=== PATIENT | female | born 1930 | race Two or more races ===

== ENCOUNTER → 2016-06-03 | Outpatient (CLI) | payer MEDICARE, MEDICAID ==
[2016-06-03 10:06] LABS: APPEARANCE,URINE SLIGHTLY-CLOUDY; BILIRUBIN,URINE NEGATIVE (NEGATIVE); GLUCOSE, URINE NEGATIVE (NEGATIVE); KETONES,URINE TRACE mg/dL (NEGATIVE); LEUKOCYTE ESTERASE,URINE TRACE (NEGATIVE); NITRITE,URINE NEGATIVE (NEGATIVE); PROTEIN,URINE NEGATIVE (NEGATIVE); URINE SPECIFIC GRAVITY 1.023
[2016-06-03 10:07] LABS: HEMATOCRIT 39.5 % (36.0-47.0); HEMOGLOBIN 13.3 g/dL (12.0-15.5); HGB HCT DIFFERENCE 0.4; MEAN CORPUSCULAR VOLUME 91 fl (80-97); RED BLOOD COUNT 4.32 10^6/uL (3.72-5.28)
[2016-06-03 10:08] LABS: MEAN CORPUSCULAR HEMOGLOBIN 30.7 pg (27.0-33.4); MEAN CORPUSCULAR HGB CONC 33.6 g/dL (32.0-36.0); RED CELL DISTRIBUTION WIDTH 13.5 % (11.5-14.0)
[2016-06-03 10:29] LABS: ANION GAP 9 (5-19); BLOOD UREA NITROGEN 39 mg/dL (7-20); CALCIUM 10.1 mg/dL (8.4-10.2); CARBON DIOXIDE 31 mmol/L (22-30); CHLORIDE 101 mmol/L (98-107); GLUCOSE 97 mg/dL (75-110); POTASSIUM 4.7 mmol/L (3.6-5.0); SODIUM 140.6 mmol/L (137-145)
== END ==
LOC: OD 09:15
PROVIDERS: ATTEND Internal Medicine Nephrology
DX: I12.9 Hypertensive chronic kidney disease with stage 1 through stage 4 chronic kidney disease, or unspecified chronic kidney disease (principal); N18.3 Chronic kidney disease, stage 3 (moderate); E87.5 Hyperkalemia
CPT/HCPCS: 36415; 80048; 81001; 85027

== ENCOUNTER → 2016-11-11 | Outpatient (CLI) | payer MEDICARE, MEDICAID ==
[2016-11-11 10:08] LABS: ABSOLUTE EOSINOPHILS # (AUTO) 0.1 10^3/uL (0.0-0.6); ABSOLUTE LYMPHOCYTES (AUTO) 2.2 10^3/uL (0.5-4.7); ABSOLUTE MONOCYTES (AUTO) 0.6 10^3/uL (0.1-1.4); ABSOLUTE NEUT (AUTO) 4.2 10^3/uL (1.7-8.2); BASOPHILS % (AUTO) 0.3 % (0-2); EOSINOPHILS % (AUTO) 1.5 % (0-6); HEMATOCRIT 39.2 % (36.0-47.0); HEMOGLOBIN 13.4 g/dL (12.0-15.5); LYMPHOCYTES % (AUTO) 30.9 % (13-45); MEAN CORPUSCULAR HEMOGLOBIN 31.4 pg (27.0-33.4); MEAN CORPUSCULAR HGB CONC 34.3 g/dL (32.0-36.0); MEAN CORPUSCULAR VOLUME 92 fl (80-97); MONOCYTES % (AUTO) 8.4 % (3-13); RED BLOOD COUNT 4.27 10^6/uL (3.72-5.28); RED CELL DISTRIBUTION WIDTH 13.5 % (11.5-14.0); SEGMENTED NEUTROPHILS % (AUTO) 58.9 % (42-78); WHITE BLOOD COUNT 7.2 10^3/uL (4.0-10.5)
[2016-11-11 10:11] LABS: HEMATOCRIT 39.2 % (36.0-47.0); HEMOGLOBIN 13.4 g/dL (12.0-15.5); MEAN CORPUSCULAR HEMOGLOBIN 31.4 pg (27.0-33.4); MEAN CORPUSCULAR HGB CONC 34.3 g/dL (32.0-36.0); MEAN CORPUSCULAR VOLUME 92 fl (80-97); RED BLOOD COUNT 4.27 10^6/uL (3.72-5.28); RED CELL DISTRIBUTION WIDTH 13.5 % (11.5-14.0); WHITE BLOOD COUNT 7.2 10^3/uL (4.0-10.5)
[2016-11-11 10:14] LABS: APPEARANCE,URINE SLIGHTLY-CLOUDY; BILIRUBIN,URINE NEGATIVE (NEGATIVE); GLUCOSE, URINE NEGATIVE (NEGATIVE); KETONES,URINE NEGATIVE (NEGATIVE); LEUKOCYTE ESTERASE,URINE SMALL (NEGATIVE); NITRITE,URINE NEGATIVE (NEGATIVE); PROTEIN,URINE NEGATIVE (NEGATIVE); URINE SPECIFIC GRAVITY 1.021; UROBILINOGEN,URINE NEGATIVE mg/dL (<2.0)
[2016-11-11 10:41] LABS: ALANINE AMINOTRANSFERASE 29 U/L (9-52); ALBUMIN 4.2 g/dL (3.5-5.0); ALKALINE PHOSPHATASE 54 U/L (38-126); ANION GAP 10 (5-19); ASPARTATE AMINO TRANSFERASE 28 U/L (14-36); BILIRUBIN,DIRECT 0.4 mg/dL (0.0-0.4); BILIRUBIN,TOTAL 0.4 mg/dL (0.2-1.3); BLOOD UREA NITROGEN 28 mg/dL (7-20); CALCIUM 10.3 mg/dL (8.4-10.2); CARBON DIOXIDE 28 mmol/L (22-30); CHLORIDE 103 mmol/L (98-107); CHOLESTEROL 207.25 mg/dL (0-200); CREATININE RESULT 1.08 mg/dL (0.52-1.25); Direct HDL 56 mg/dL (>40); GLUCOSE 108 mg/dL (75-110); POTASSIUM 5.3 mmol/L (3.6-5.0); SODIUM 140.9 mmol/L (137-145); TOTAL PROTEIN 7.2 g/dL (6.3-8.2); TRIGLYCERIDES 284 mg/dL (<150)
[2016-11-11 10:52] LABS: DIRECT LDL 94 mg/dL (<100)
[2016-11-11 10:54] LABS: VLDL CHOLESTEROL 56.8 mg/dL (10-31)
[2016-11-11 10:55] LABS: BLOOD UREA NITROGEN 28 mg/dL (7-20); CALCIUM 10.3 mg/dL (8.4-10.2); CHLORIDE 103 mmol/L (98-107); CREATININE RESULT 1.08 mg/dL (0.52-1.25); GLUCOSE 108 mg/dL (75-110); POTASSIUM 5.3 mmol/L (3.6-5.0)
[2016-11-11 10:56] LABS: ANION GAP 10 (5-19); CARBON DIOXIDE 28 mmol/L (22-30); SODIUM 140.9 mmol/L (137-145)
== END ==
LOC: OD 09:10
PROVIDERS: ATTEND Internal Medicine
DX: I12.9 Hypertensive chronic kidney disease with stage 1 through stage 4 chronic kidney disease, or unspecified chronic kidney disease (principal); N18.3 Chronic kidney disease, stage 3 (moderate); E87.5 Hyperkalemia; E78.5 Hyperlipidemia, unspecified; R53.83 Other fatigue
CPT/HCPCS: 36415; 80048; 80053; 80061; 81001; 84443; 85025; 85027

== ENCOUNTER → 2017-01-06 | Outpatient (CLI) | payer MEDICARE, MEDICAID ==
--- NOTE | 2017-01-06 15:50 | RADIOLOGY REPORT (SQ) ---
EXAM DESCRIPTION: U/S RETROPERITON (RENAL/AORTA) COMPLETED DATE/TIME: 01/06/2017 2:29 pm REASON FOR STUDY: MAL FABIO OF KIDNEY C64.1 MALIGNANT NEOPLASM OF RIGHT KIDNEY, EXCEPT RENAL PELVI COMPARISON: 2013, 2015. MRI. TECHNIQUE: Dynamic and static grayscale images acquired of the kidneys and bladder and recorded on P ACS. Additional selected color Doppler and spectral images recorded. LIMITATIONS: None. FINDINGS: RIGHT KIDNEY: 9.8 cm. Normal echogenicity. Solid mass measuring 3.3 x 4.1 x 4.3 cm. Blood flow. Essentially stable since 2013. No hydronephrosis. No calcifications. LEFT KIDNEY: 10.3 cm. Normal echogenicity. No solid or suspicious masses. No hydronephrosis. No calcifications. BLADDER: No masses. OTHER FINDINGS: No other significant finding. IMPRESSION: Stable solid renal mass right kidney since 2013. TECHNICAL DOCUMENTATION: JOB ID: [id number] [employer]- All Rights Reserved
== END ==
LOC: RAD 13:39
PROVIDERS: ATTEND Urology
DX: C64.1 Malignant neoplasm of right kidney, except renal pelvis (principal)
CPT/HCPCS: 76770

== ENCOUNTER → 2017-05-29 | Outpatient (CLI) | payer MEDICARE, MEDICAID ==
--- NOTE | 2017-05-29 19:10 | XCELERA REPORT ---
[address] [address] Lower Extremity Venous Evaluation Name: TANIYA JEAN BAPTISTE Age: 86 yrs Gender: Female : 1930 Patient Status: Outpatient Patient Location: Study Date: 05/29/2017 11:20 AM Procedure: Color flow and duplex imaging of the veins of the left lower extremity as well as the right Common Femoral vein. Reason For Study: LLE PAIN Ordering Physician: KARTIK BECKER Performed By: Vika Ramirez Right Sided Venous Evaluation The right common femoral vein is fully compressible. Spontaneous and phasic flow is present in the right common femoral vein. Left Sided Venous Evaluation Normal vessel filling wall to wall, compression and augmentation as well as Colour flow down to the infrageniculate veins. Interpretation Summary No duplex evidence of DVT or obstruction in the left lower extremity nor in the right Common Femoral vein. : KARTIK BECKER [place]
== END ==
LOC: SP 11:14
PROVIDERS: ATTEND Internal Medicine
DX: I82.402 Acute embolism and thrombosis of unspecified deep veins of left lower extremity (principal); M79.89 Other specified soft tissue disorders
CPT/HCPCS: 93971

== ENCOUNTER → 2017-06-16 | Outpatient (CLI) | payer MEDICARE, MEDICAID ==
[2017-06-16 09:01] LABS: ABSOLUTE EOSINOPHILS # (AUTO) 0.1 10^3/uL (0.0-0.6); ABSOLUTE LYMPHOCYTES (AUTO) 2.9 10^3/uL (0.5-4.7); ABSOLUTE MONOCYTES (AUTO) 0.6 10^3/uL (0.1-1.4); ABSOLUTE NEUT (AUTO) 5.2 10^3/uL (1.7-8.2); BASOPHILS % (AUTO) 0.4 % (0-2); EOSINOPHILS % (AUTO) 1.4 % (0-6); HEMATOCRIT 42.4 % (36.0-47.0); HEMOGLOBIN 14.3 g/dL (12.0-15.5); MEAN CORPUSCULAR HEMOGLOBIN 29.8 pg (27.0-33.4); MEAN CORPUSCULAR HGB CONC 33.7 g/dL (32.0-36.0); MEAN CORPUSCULAR VOLUME 89 fl (80-97); MONOCYTES % (AUTO) 6.5 % (3-13); PLATELET COUNT 327 10^3/uL (150-450); RED BLOOD COUNT 4.79 10^6/uL (3.72-5.28); RED CELL DISTRIBUTION WIDTH 13.4 % (11.5-14.0); SEGMENTED NEUTROPHILS % (AUTO) 58.7 % (42-78); TOTAL CELLS COUNTED % (AUTO) 100 %; WHITE BLOOD COUNT 8.9 10^3/uL (4.0-10.5)
[2017-06-16 09:07] LABS: HEMATOCRIT 42.4 % (36.0-47.0); HEMOGLOBIN 14.3 g/dL (12.0-15.5); MEAN CORPUSCULAR HEMOGLOBIN 29.8 pg (27.0-33.4); MEAN CORPUSCULAR HGB CONC 33.7 g/dL (32.0-36.0); MEAN CORPUSCULAR VOLUME 89 fl (80-97); PLATELET COUNT 327 10^3/uL (150-450); RED BLOOD COUNT 4.79 10^6/uL (3.72-5.28); RED CELL DISTRIBUTION WIDTH 13.4 % (11.5-14.0); WHITE BLOOD COUNT 8.9 10^3/uL (4.0-10.5)
[2017-06-16 09:18] LABS: ALANINE AMINOTRANSFERASE 24 U/L (9-52); ALBUMIN 4.3 g/dL (3.5-5.0); ALKALINE PHOSPHATASE 46 U/L (38-126); ANION GAP 8 (5-19); ASPARTATE AMINO TRANSFERASE 24 U/L (14-36); BILIRUBIN,DIRECT 0.4 mg/dL (0.0-0.4); BILIRUBIN,TOTAL 0.4 mg/dL (0.2-1.3); BLOOD UREA NITROGEN 37 mg/dL (7-20); CALCIUM 10.3 mg/dL (8.4-10.2); CARBON DIOXIDE 29 mmol/L (22-30); CHLORIDE 105 mmol/L (98-107); CHOLESTEROL 159.93 mg/dL (0-200); GLUCOSE 96 mg/dL (75-110); POTASSIUM 4.5 mmol/L (3.6-5.0); SODIUM 142.1 mmol/L (137-145); TOTAL PROTEIN 7.1 g/dL (6.3-8.2); TRIGLYCERIDES 167 mg/dL (<150)
[2017-06-16 09:31] LABS: DIRECT LDL 71 mg/dL (<100)
[2017-06-16 09:35] LABS: VLDL CHOLESTEROL 33.4 mg/dL (10-31)
[2017-06-16 09:44] LABS: ANION GAP 8 (5-19); BLOOD UREA NITROGEN 37 mg/dL (7-20); CALCIUM 10.3 mg/dL (8.4-10.2); CARBON DIOXIDE 29 mmol/L (22-30); CHLORIDE 105 mmol/L (98-107); GLUCOSE 96 mg/dL (75-110); POTASSIUM 4.5 mmol/L (3.6-5.0); SODIUM 142.1 mmol/L (137-145)
== END ==
LOC: OD 08:19
PROVIDERS: ATTEND Internal Medicine
DX: I12.9 Hypertensive chronic kidney disease with stage 1 through stage 4 chronic kidney disease, or unspecified chronic kidney disease (principal); N18.3 Chronic kidney disease, stage 3 (moderate); E78.5 Hyperlipidemia, unspecified; R53.83 Other fatigue
CPT/HCPCS: 36415; 80048; 80053; 80061; 83735; 84443; 85025; 85027

== ENCOUNTER → 2017-10-01 | Outpatient (CLI) | payer MEDICARE, MEDICAID ==
[2017-10-01 10:46] LABS: APPEARANCE,URINE CLEAR; BILIRUBIN,URINE NEGATIVE (NEGATIVE); COLOR,URINE YELLOW; GLUCOSE, URINE NEGATIVE (NEGATIVE); KETONES,URINE NEGATIVE (NEGATIVE); LEUKOCYTE ESTERASE,URINE NEGATIVE (NEGATIVE); NITRITE,URINE NEGATIVE (NEGATIVE); PROTEIN,URINE NEGATIVE (NEGATIVE); UROBILINOGEN,URINE NEGATIVE mg/dL (<2.0)
[2017-10-01 11:06] LABS: ANION GAP 9 (5-19); BLOOD UREA NITROGEN 34 mg/dL (7-20); CALCIUM 10.5 mg/dL (8.4-10.2); CARBON DIOXIDE 30 mmol/L (22-30); CHLORIDE 105 mmol/L (98-107); GLUCOSE 92 mg/dL (75-110); POTASSIUM 5.1 mmol/L (3.6-5.0); SODIUM 143.9 mmol/L (137-145)
[2017-10-01 12:03] LABS: HEMATOCRIT 39.3 % (36.0-47.0); HEMOGLOBIN 13.2 g/dL (12.0-15.5); MEAN CORPUSCULAR HEMOGLOBIN 30.3 pg (27.0-33.4); MEAN CORPUSCULAR HGB CONC 33.5 g/dL (32.0-36.0); MEAN CORPUSCULAR VOLUME 91 fl (80-97); PLATELET COUNT 331 10^3/uL (150-450); RED BLOOD COUNT 4.34 10^6/uL (3.72-5.28); RED CELL DISTRIBUTION WIDTH 13.7 % (11.5-14.0); WHITE BLOOD COUNT 7.1 10^3/uL (4.0-10.5)
== END ==
LOC: OD 09:38
PROVIDERS: ATTEND Physician Assistant Medical
DX: N18.3 Chronic kidney disease, stage 3 (moderate) (principal); I12.9 Hypertensive chronic kidney disease with stage 1 through stage 4 chronic kidney disease, or unspecified chronic kidney disease; E87.5 Hyperkalemia
CPT/HCPCS: 36415; 80048; 81001; 85027

== ENCOUNTER 2018-02-12 13:37 | Inpatient (IN) | payer MEDICARE, MEDICAID ==
--- NOTE | 2018-02-12 13:59 | ER Document Report ---
ED General - General Chief Complaint: Weakness Stated Complaint: DIFFICULTY BREATHING Time Seen by Provider: 02/12/18 13:58 Notes: Patient is a 87-year-old female that presents to the emergency department for chief complaint of weakness after fall. Patient states that last night she had fallen, and was unable to get herself up off the floor until her family came over this morning and found her on the floor. She did not have the strength to stand. She states that she fell forward onto her right knee and scraped it, but denies having any significant pain with any range of motion of her knee. She was unable to get up to walk and has not walked since she fell. She denies having any hip pain, denies head injury or neck injury. Denies any numbness, weakness or tingling in any extremities. Past Medical History: Hypertension, hyperlipidemia Past Surgical History: Kidney cancer and surgery Social History: Denies tobacco, alcohol or drug use Family History: Reviewed and noncontributory for presenting illness Allergies: Reviewed, see documented allergy list. REVIEW OF SYSTEMS: Unless otherwise stated in this report the patient's positive and negative responses for review of systems for constitutional, eyes, ENT, cardiovascular, respiratory, gastrointestinal, neurological, genitourinary, musculoskeletal, and integumentary systems and related systems to the presenting problem are either as stated in the HPI or were not pertinent or were negative for the symptoms and/or complaints related to the presenting medical problem. PHYSICAL EXAMINATION: Vital signs reviewed, nursing noted reviewed. GENERAL: Elderly appearing female, no acute distress HEAD: Atraumatic, normocephalic. EYES: Eyes appear normal, extraocular movements intact, sclera anicteric, conjunctiva are normal. ENT: nares patent, oropharynx clear without exudates. Moist mucous membranes. NECK: Normal range of motion, supple without lymphadenopathy, no midline tenderness LUNGS: Breath sounds clear to auscultation bilaterally and equal. No wheezes rales or rhonchi. HEART: Regular rate and rhythm without murmurs ABDOMEN: Soft, nontender, normoactive bowel sounds. No rebound, guarding, or rigidity. No masses appreciated. EXTREMITIES: There is a skin tear noted over the right knee, patient can lift both legs and flex the hip without any pain or difficulty, she is neurovascularly intact distally in all extremities. Nontender, good range of motion, no pitting or edema. NEUROLOGICAL: No focal neurological deficits. Moves all extremities spontaneously Motor and sensory grossly intact on exam. PSYCH: Normal mood, normal affect. SKIN: Warm, Dry, normal turgor, no rashes or lesions noted on exposed skin TRAVEL OUTSIDE OF THE [place] IN LAST 30 DAYS: No - Related Data Allergies/Adverse Reactions: No Known Allergies Allergy (Verified 02/12/18 14:36) Past Medical History - Social History Smoking Status: Never Smoker Family History: None - Past Medical History Cardiac Medical History: Reports: Hx Hypercholesterolemia, Hx Hypertension - 2004 meds started Denies: Hx Coronary Artery Disease, Hx Heart Attack Pulmonary Medical History: Reports: Hx Pneumonia - 2013 Denies: Hx Asthma, Hx Bronchitis, Hx COPD, Hx Tuberculosis Neurological Medical History: Denies: Hx Cerebrovascular Accident, Hx Seizures Musculoskeletal Medical History: Reports Hx Arthritis - hips Psychiatric Medical History: Denies: Hx Depression Past Surgical History: Reports: Hx Hysterectomy, Hx Orthopedic Surgery - left knee surgery. Denies: Hx Pacemaker - Immunizations Hx Diphtheria, Pertussis, Tetanus Vaccination: Yes Hx Pneumococcal Vaccination: 06/09/13 Physical Exam - Vital signs Vitals: Temp Pulse Ox 97.8 F 96 02/12/18 13:43 02/12/18 13:43 Course - Re-evaluation Re-evalutation: Patient seen and examined vital signs reviewed. Laboratory data and imaging were ordered as appropriate for the patient's presenting symptoms and complaint, with consideration of any critical or life threatening conditions that may be associated with their obtained history and exam as noted above. Patient was treated with IV fluids Results were reviewed when available and demonstrated leukocytosis, and elevated CK, the UA was positive for blood, which is most likely myoglobin, concerning for rhabdomyolysis The patient was re-evaluated and was stable, agreeable to admission Evaluation was most consistent with acute rhabdomyolysis, from the patient lying on the ground for an extended period of time, patient will need IV fluids , and monitoring Results were discussed with the patient at this point after careful consideration I feel that that patient should be admitted to the hospital. This was discussed with the patient that it is in the best interest for their care to be admitted for further evaluation and management. Patient agreed with this plan of care. A call was placed to the admitted physician, Dr. Boyd who graciously accepted the patient onto their service. *Note is created using voice recognition software and may contain spelling, syntax or grammatical errors. Laboratory 02/12/18 02/12/18 02/12/18 14:15 14:15 14:15 WBC 17.1 H RBC 4.55 Hgb 14.0 Hct 40.8 MCV 90 MCH 30.8 MCHC 34.4 RDW 13.8 Plt Count 365 Seg Neutrophils % 80.8 H Lymphocytes % 11.3 L Monocytes % 7.7 Eosinophils % 0.0 Basophils % 0.2 Absolute Neutrophils 13.8 H Absolute Lymphocytes 1.9 Absolute Monocytes 1.3 Absolute Eosinophils 0.0 Absolute Basophils 0.0 Sodium 141.5 Potassium 4.3 Chloride 103 Carbon Dioxide 26 Anion Gap 13 BUN 29 H Creatinine 1.31 H Est GFR ( Amer) 46 L Est GFR (Non-Af Amer) 38 L Glucose 138 H Calcium 10.6 H Total Bilirubin 0.3 Direct Bilirubin 0.2 Neonat Total Bilirubin Not Reportable Neonat Direct Bilirubin Not Reportable Neonat Indirect Bili Not Reportable AST 85 H ALT 23 Alkaline Phosphatase 54 Creatine Kinase 2621 H Troponin I 0.049 Total Protein 7.8 Albumin 4.4 Urine Color Urine Appearance Urine pH Ur Specific [place] Urine Protein Urine Glucose (UA) Urine Ketones Urine Blood Urine Nitrite Urine Bilirubin Urine Urobilinogen Ur Leukocyte Esterase Urine WBC (Auto) Urine RBC (Auto) U Hyaline Cast (Auto) Squamous Epi Cells Auto Urine Mucus (Auto) Urine Ascorbic Acid 02/12/18 02/12/18 15:35 16:55 WBC RBC Hgb Hct MCV MCH MCHC RDW Plt Count Seg Neutrophils % Lymphocytes % Monocytes % Eosinophils % Basophils % Absolute Neutrophils Absolute Lymphocytes Absolute Monocytes Absolute Eosinophils Absolute Basophils Sodium Potassium Chloride Carbon Dioxide Anion Gap BUN Creatinine Est GFR ( Amer) Est GFR (Non-Af Amer) Glucose Calcium Total Bilirubin Direct Bilirubin Neonat Total Bilirubin Neonat Direct Bilirubin Neonat Indirect Bili AST ALT Alkaline Phosphatase Creatine Kinase 4226 H Troponin I Total Protein Albumin Urine Color YELLOW Urine Appearance SLIGHTLY-CLOUDY Urine pH 5.0 Ur Specific [place] 1.021 Urine Protein 30 H Urine Glucose (UA) 50 H Urine Ketones TRACE H Urine Blood LARGE H Urine Nitrite NEGATIVE Urine Bilirubin NEGATIVE Urine Urobilinogen 2.0 H Ur Leukocyte Esterase TRACE H Urine WBC (Auto) 3 Urine RBC (Auto) 1 U Hyaline Cast (Auto) 47 Squamous Epi Cells Auto 3 Urine Mucus (Auto) OCC Urine Ascorbic Acid NEGATIVE Chest X-Ray 11/01/18 14:09 IMPRESSION: HEART ENLARGED WITHOUT FAILURE. NO OTHER SIGNIFICANT RADIOGRAPHIC FINDING IN THE CHEST. - Vital Signs Vital signs: Temp Pulse Resp BP Pulse Ox 97.8 F 90 22 H 167/76 H 99 02/12/18 13:43 02/12/18 17:01 02/12/18 17:01 02/12/18 17:01 02/12/18 17:01 - Laboratory Result Diagrams: 02/12/18 14:15 02/12/18 14:15 Laboratory results interpreted by me: 02/12/18 02/12/18 02/12/18 14:15 14:15 15:35 WBC 17.1 H Seg Neutrophils % 80.8 H Lymphocytes % 11.3 L Absolute Neutrophils 13.8 H BUN 29 H Creatinine 1.31 H Est GFR ( Amer) 46 L Est GFR (Non-Af Amer) 38 L Glucose 138 H Calcium 10.6 H AST 85 H Creatine Kinase 2621 H Urine Protein 30 H Urine Glucose (UA) 50 H Urine Ketones TRACE H Urine Blood LARGE H Urine Urobilinogen 2.0 H Ur Leukocyte Esterase TRACE H - EKG Interpretation by Me Additional EKG results interpreted by me: EKG demonstrates sinus rhythm with a ventricular rate of 85 bpm, normal axis, intervals, no evidence of acute ischemia in this EKG, compared with prior EKG from 09/01/2013, without significant change. Discharge - Discharge Clinical Impression: Weakness, Dehydration Rhabdomyolysis Qualifiers: Rhabdomyolysis type: traumatic Encounter type: initial encounter Qualified Code (s): T79.6XXA - Traumatic ischemia of muscle, initial encounter Condition: Stable Disposition: ADMITTED INPATIENT Admitting Provider: Hospitalist - Dr. Boyd Unit Admitted: Medical Floor
[2018-02-12] MEDS ORDERED: NORMAL SALINE 500 ML IV ONE (14:10)
[2018-02-12 14:29] LABS: ABSOLUTE LYMPHOCYTES (AUTO) 1.9 10^3/uL (0.5-4.7); ABSOLUTE MONOCYTES (AUTO) 1.3 10^3/uL (0.1-1.4); ABSOLUTE NEUT (AUTO) 13.8 10^3/uL (1.7-8.2); BASOPHILS % (AUTO) 0.2 % (0-2); HEMATOCRIT 40.8 % (36.0-47.0); LYMPHOCYTES % (AUTO) 11.3 % (13-45); MEAN CORPUSCULAR HEMOGLOBIN 30.8 pg (27.0-33.4); MEAN CORPUSCULAR HGB CONC 34.4 g/dL (32.0-36.0); MEAN CORPUSCULAR VOLUME 90 fl (80-97); MONOCYTES % (AUTO) 7.7 % (3-13); PLATELET COUNT 365 10^3/uL (150-450); RED BLOOD COUNT 4.55 10^6/uL (3.72-5.28); RED CELL DISTRIBUTION WIDTH 13.8 % (11.5-14.0); SEGMENTED NEUTROPHILS % (AUTO) 80.8 % (42-78); TOTAL CELLS COUNTED % (AUTO) 100 %; WHITE BLOOD COUNT 17.1 10^3/uL (4.0-10.5)
[2018-02-12 14:51] LABS: ALANINE AMINOTRANSFERASE 23 U/L (9-52); ALBUMIN 4.4 g/dL (3.5-5.0); ALKALINE PHOSPHATASE 54 U/L (38-126); ANION GAP 13 (5-19); ASPARTATE AMINO TRANSFERASE 85 U/L (14-36); BILIRUBIN,DIRECT 0.2 mg/dL (0.0-0.4); BILIRUBIN,TOTAL 0.3 mg/dL (0.2-1.3); BLOOD UREA NITROGEN 29 mg/dL (7-20); CALCIUM 10.6 mg/dL (8.4-10.2); CARBON DIOXIDE 26 mmol/L (22-30); CHLORIDE 103 mmol/L (98-107); GLUCOSE 138 mg/dL (75-110); POTASSIUM 4.3 mmol/L (3.6-5.0); SODIUM 141.5 mmol/L (137-145); TOTAL PROTEIN 7.8 g/dL (6.3-8.2)
[2018-02-12 15:07] LABS: CREATINE KINASE 2621 U/L (30-135)
--- NOTE | 2018-02-12 15:46 | RADIOLOGY REPORT (SQ) ---
EXAM DESCRIPTION: CHEST SINGLE VIEW COMPLETED DATE/TIME: 02/12/2018 3:12 pm REASON FOR STUDY: WEAKNESS COMPARISON: 09/10/2013 NUMBER OF VIEWS: One view. TECHNIQUE: Single frontal radiographic view of the chest acquired. LIMITATIONS: None. FINDINGS: LUNGS AND PLEURA: No opacities, masses or pneumothorax. No pleural effusion. MEDIASTINUM AND HILAR STRUCTURES: No masses. Contour normal. HEART AND VASCULAR STRUCTURES: Heart enlarged without failure. Normal vasculature. BONES: No acute findings. HARDWARE: None in the chest. OTHER: No other significant finding. IMPRESSION: HEART ENLARGED WITHOUT FAILURE. NO OTHER SIGNIFICANT RADIOGRAPHIC FINDING IN THE CHEST. TECHNICAL DOCUMENTATION: JOB ID: [id number] [employer]- All Rights Reserved Reading location - IP/workstation name: [email or web address]
[2018-02-12 16:11] LABS: APPEARANCE,URINE SLIGHTLY-CLOUDY; BILIRUBIN,URINE NEGATIVE (NEGATIVE); COLOR,URINE YELLOW; GLUCOSE, URINE 50 mg/dL (NEGATIVE); KETONES,URINE TRACE mg/dL (NEGATIVE); LEUKOCYTE ESTERASE,URINE TRACE (NEGATIVE); NITRITE,URINE NEGATIVE (NEGATIVE); PROTEIN,URINE 30 mg/dL (NEGATIVE); URINE SPECIFIC GRAVITY 1.021
[2018-02-12] MEDS ORDERED: ONDANSETRON 4 MG TAB.RAPDIS PO PRN (16:14)
[2018-02-12] MEDS ORDERED: TEMAZEPAM 7.5 MG CAPSULE PO PRN (16:14)
[2018-02-12] MEDS ORDERED: MAG HYDROX/AL HYDROX/SIMETH SUSP 30 ML UDCUP PO PRN (16:14)
[2018-02-12] MEDS ORDERED: MORPHINE SULFATE 10 MG/ML INJ IV PRN ×3 (16:33)
[2018-02-12] MEDS: NORMAL SALINE 1000 ML 1,000 ML IV PRN (16:48)
[2018-02-12] MEDS ORDERED: POTASSIUM CHLORIDE 10 MEQ CAPSULE.ER PO SCH (18:00)
[2018-02-12 18:11] LABS: CREATINE KINASE MB 32.3 ng/mL (<4.55); TROPONIN I 0.069 ng/mL
--- NOTE | 2018-02-12 18:28 | PDOC H&P ---
History of Present Illness Admission Date/PCP: 02/12/18 16:26 KARTIK BECKER MD Patient complains of: Generalized weakness after a fall History of Present Illness: TANIYA JEAN BAPTISTE is a 87 year old female who presented to the emergency room with a history of a fall occurring on the night prior to arrival. She states that she fell sometime last night and was unable to get up. This morning she was found on the floor by her family when they came to check on her. She is uncertain of the length of time she spent on the floor if she is unsure of what time she fell. She denies loss of consciousness or striking her head at the time of her fall, but admits that she felt so weak that she could not get up after falling to the floor. She admits that she has been feeling weak for the last several days but is uncertain of the reason for her weakness. She denies fever, chills, nausea, vomiting, diarrhea, cough, chest pain, abdominal pain, sore throat, headache, rash, dysuria, hematuria, vertigo, dizziness and syncope. She complains of mild to moderate generalized achy muscular pain and adds that she did not have anything to drink all night because she was on the floor. She has not identified any aggravating or ameliorating factors for her falls, but admits several similar episodes in the past though she has generally been able to get up off the floor. In the emergency room she was found to have no evidence of fracture, dislocation or other acute skeletal injury. She was noted to have an elevated creatinine kinase at 2600 and a mildly elevated creatinine at 1.3. With these findings she was admitted to the hospital for evaluation and treatment of a mild rhabdomyolysis and acute renal injury. Past Medical History Cardiac Medical History: Reports: Congestive Heart Failure - Chronic diastolic CHF [employer] class 2, Hyperlipidema, Hypertension - 2004 meds started Denies: Coronary Artery Disease, Myocardial Infarction Pulmonary Medical History: Reports: Pneumonia - 2013 Denies: Asthma, Bronchitis, Chronic Obstructive Pulmonary Disease (COPD), Tuberculosis EENT Medical History: Reports: Other - Facial puffiness Denies: Cataracts Neurological Medical History: Reports: Other - History of falls of uncertain etiology Denies: Hemorrhagic CVA, Ischemic CVA, Migraine, Seizures Endocrine Medical History: Denies: Diabetes Mellitus Type 1, Diabetes Mellitus Type 2, Hyperthyroidism, Hypothyroidism Renal/ Medical History: Denies: Chronic Kidney Disease, Nephrolithiasis Malignancy Medical History: Reports: Renal (Kidney) Cancer - She underwent a tumor debulking procedure of some nature, Other - Possible uterine cancer was the reason for her hysterectomy GI Medical History: Denies: Cirrhosis, Crohn's Disease, Hepatitis, Ulcerative Colitis Musculoskeltal Medical History: Reports: Arthritis - hips Denies: Fibromyalgia Skin Medical History: Denies: Eczema, Psoriasis Psychiatric Medical History: Reports: Other - Former smoker quit smoking in remote past (about 50 years ago) Denies: Alcohol Dependency, Depression, General Anxiety Disorder, Substance Abuse Traumatic Medical History: Reports: None Hematology: Denies: Anemia, Bleeding Tendencies Infectious Medical History: Reports: None Past Surgical History Past Surgical History: Reports: Hysterectomy, Orthopedic Surgery - left knee surgery, Other - Kidney cancer surgery Social History Information Source: Patient Lives with: Alone Smoking Status: Former Smoker Frequency of Alcohol Use: None Hx Recreational Drug Use: No Hx Prescription Drug Abuse: No - Advance Directive Resuscitation Status: Full Code Family History Family History: Hypertension, Other - Heart disease Parental Family History Reviewed: Yes Children Family History Reviewed: Yes Sibling(s) Family History Reviewed.: Yes Medication/Allergy Home Medications: Amlodipine Besylate [Norvasc 5 mg Tablet] 5 mg PO DAILY 05/23/13 Aspirin [Aspirin 81 mg Chewable Tablet] 81 mg PO DAILY 05/23/13 Fenofibrate [Lofibra] 160 mg PO DAILY 05/23/13 Losartan Potassium [Cozaar 100 mg Tablet] 100 mg PO DAILY 05/23/13 Nitroglycerin [Nitroglycerin Patch] 0.2 patch TD DAILY 05/23/13 Pravastatin Sodium [Pravachol] 80 mg PO QHS 05/23/13 Metoprolol Succinate [Toprol XL 100 mg Tablet] 100 mg PO DAILY 06/02/13 Vitamin D 50,000 units PO Q7D 09/01/13 Furosemide [Lasix 40 mg Tablet] 40 mg PO DAILY 02/12/18 Allergies/Adverse Reactions: No Known Allergies Allergy (Verified 02/12/18 14:36) Review of Systems Constitutional: PRESENT: weakness - Generalized weakness for the last several days. ABSENT: anorexia, chills, fever(s) Eyes: ABSENT: visual disturbances, other - Ocular pain Ears: ABSENT: hearing changes, other - Ear pain Nose, Mouth, and Throat: ABSENT: mouth pain, sore throat Cardiovascular: PRESENT: dyspnea on exertion, other - Diaphoretic when found on the floor this morning by family members. ABSENT: chest pain, edema, orthropnea , palpitations Respiratory: ABSENT: cough, dyspnea Gastrointestinal: ABSENT: abdominal pain, constipation, diarrhea, nausea, vomiting Genitourinary: ABSENT: dysuria, hematuria Musculoskeletal: ABSENT: deformity, joint swelling Integumentary: ABSENT: pruritus, rash Neurological: PRESENT: weakness. ABSENT: confusion, convulsions, dizziness, focal weakness, lack of coordination, memory loss, syncope, vertigo Psychiatric: ABSENT: anxiety, depression Endocrine: ABSENT: cold intolerance, heat intolerance Hematologic/Lymphatic: ABSENT: easy bleeding, easy bruising Allergic/Immunologic: ABSENT: seasonal rhinorrhea, other - Insect bite allergy Physical Exam Vital Signs: Temp Pulse Resp BP Pulse Ox 97.8 F 90 22 H 167/76 H 99 02/12/18 13:43 02/12/18 17:01 02/12/18 17:01 02/12/18 17:01 02/12/18 17:01 General appearance: PRESENT: no acute distress, cooperative Head exam: PRESENT: atraumatic, normocephalic Eye exam: PRESENT: conjunctiva pink, EOMI Ear exam: PRESENT: normal external ear exam. ABSENT: bleeding, drainage Mouth exam: PRESENT: neck supple, tongue midline Neck exam: ABSENT: thyromegaly, tracheal deviation Respiratory exam: PRESENT: clear to auscultation antonio, symmetrical, unlabored Cardiovascular exam: PRESENT: RRR. ABSENT: clicks, diastolic murmur, gallop, rubs, systolic murmur Pulses: PRESENT: normal radial pulses, normal dorsalis pedis pul Vascular exam: PRESENT: normal capillary refill. ABSENT: pallor GI/Abdominal exam: PRESENT: normal bowel sounds, soft Rectal exam: PRESENT: deferred Extremities exam: PRESENT: tenderness - Right anterior knee with superficial abrasion noted. ABSENT: joint swelling, pedal edema Musculoskeletal exam: ABSENT: deformity, dislocation Neurological exam: PRESENT: alert, oriented to person, oriented to place, oriented to time, oriented to situation, CN II-XII grossly intact. ABSENT: motor sensory deficit Psychiatric exam: PRESENT: appropriate affect, normal mood Skin exam: PRESENT: other - Superficial abrasion right anterior knee. ABSENT: jaundice, rash, urticaria Results EKG Comments: Normal sinus rhythm at 85, poor R wave progression. Impressions: Chest X-Ray 02/12/18 14:09 IMPRESSION: HEART ENLARGED WITHOUT FAILURE. NO OTHER SIGNIFICANT RADIOGRAPHIC FINDING IN THE CHEST. Status: Image reviewed by me - Moderate cardiomegaly is noted no acute cardiopulmonary process is identified. Assessment & Plan - Diagnosis (1) Weakness Is this a current diagnosis for this admission?: Yes Plan: Patient will be rehydrated and her renal functions and electrolytes will be monitored. Thyroid function studies will be obtained. Physical therapy consultation will be obtained for evaluation and treatment. (2) Rhabdomyolysis Qualifiers: Rhabdomyolysis type: traumatic Encounter type: initial encounter Qualified Code(s): T79.6XXA - Traumatic ischemia of muscle, initial encounter Is this a current diagnosis for this admission?: Yes Plan: Serial measurement of patient's creatinine phosphokinase will be obtained to evaluate the extent and degree of her rhabdomyolysis. IV hydration will be maintained to allow for adequate renal clearance of myoglobin and other muscular injury related byproducts. (3) Acute renal failure Is this a current diagnosis for this admission?: Yes Plan: Patient will be hydrated with IV fluid and her renal functions and electrolytes will be evaluated on a regular basis throughout her hospital course. (4) Dehydration Is this a current diagnosis for this admission?: Yes Plan: Patient will be rehydrated with IV fluids and serial measurements of her renal functions electrolytes will be obtained to determine need for further hydration. (5) Leukocytosis, unspecified Is this a current diagnosis for this admission?: Yes Plan: Daily CBCs will be obtained to evaluate the patient's leukocytosis and determine the course of further investigation. (6) Chronic diastolic CHF (congestive heart failure), NYHA class 2 Is this a current diagnosis for this admission?: No (7) Essential hypertension Is this a current diagnosis for this admission?: No (8) Hyperlipidemia, mixed Is this a current diagnosis for this admission?: No - Time Time Spent: Greater than 70 Minutes Medications reviewed and adjusted accordingly: Yes
[2018-02-12] MEDS: FAMOTIDINE 20 MG TABLET PO SCH (19:16)
[2018-02-12] MEDS: CHOLECALCIFEROL (D3) 1,000 UNIT TABLET PO SCH (19:17)
[2018-02-12] MEDS: DOCUSATE SODIUM 100 MG CAPSULE PO SCH (19:17)
--- NOTE | 2018-02-12 20:43 | EKG REPORT ---
SEVERITY:- NORMAL ECG - SINUS RHYTHM : Confirmed by: Maggy Dixon MD 12-Feb-2018 20:42:24
[2018-02-12] MEDS: ATORVASTATIN CALCIUM 20 MG TABLET PO SCH (21:13)
[2018-02-12] MEDS ORDERED: FAMOTIDINE 20 MG TABLET PO SCH (22:00)
[2018-02-12 23:23] LABS: CREATINE KINASE MB 35.1 ng/mL (<4.55); TROPONIN I 0.068 ng/mL
[2018-02-13 04:57] LABS: ABSOLUTE BASOPHILS # (AUTO) 0.1 10^3/uL (0.0-0.2); ABSOLUTE EOSINOPHILS # (AUTO) 0.2 10^3/uL (0.0-0.6); ABSOLUTE LYMPHOCYTES (AUTO) 2.9 10^3/uL (0.5-4.7); ABSOLUTE MONOCYTES (AUTO) 0.9 10^3/uL (0.1-1.4); ABSOLUTE NEUT (AUTO) 7.8 10^3/uL (1.7-8.2); BASOPHILS % (AUTO) 0.5 % (0-2); EOSINOPHILS % (AUTO) 1.5 % (0-6); HEMATOCRIT 37.8 % (36.0-47.0); HEMOGLOBIN 12.7 g/dL (12.0-15.5); LYMPHOCYTES % (AUTO) 24.7 % (13-45); MEAN CORPUSCULAR HEMOGLOBIN 30.3 pg (27.0-33.4); MEAN CORPUSCULAR HGB CONC 33.6 g/dL (32.0-36.0); MEAN CORPUSCULAR VOLUME 90 fl (80-97); MONOCYTES % (AUTO) 7.5 % (3-13); PLATELET COUNT 279 10^3/uL (150-450); RED CELL DISTRIBUTION WIDTH 13.8 % (11.5-14.0); SEGMENTED NEUTROPHILS % (AUTO) 65.8 % (42-78); TOTAL CELLS COUNTED % (AUTO) 100 %; WHITE BLOOD COUNT 11.9 10^3/uL (4.0-10.5)
[2018-02-13] MEDS: NORMAL SALINE 1000 ML 1,000 ML IV PRN ×3 (05:00→19:55)
[2018-02-13 05:16] LABS: ANION GAP 9 (5-19); BLOOD UREA NITROGEN 22 mg/dL (7-20); CALCIUM 9.6 mg/dL (8.4-10.2); CARBON DIOXIDE 25 mmol/L (22-30); CHLORIDE 108 mmol/L (98-107); GLUCOSE 94 mg/dL (75-110); POTASSIUM 4.1 mmol/L (3.6-5.0); SODIUM 142.1 mmol/L (137-145); TRIGLYCERIDES 176 mg/dL (<150)
[2018-02-13 05:27] LABS: DIRECT LDL 92 mg/dL (<100)
[2018-02-13 05:28] LABS: TROPONIN I 0.066 ng/mL
[2018-02-13 05:54] LABS: CREATINE KINASE 5047 U/L (30-135); VLDL CHOLESTEROL 35.2 mg/dL (10-31)
[2018-02-13] MEDS ORDERED: NITROGLYCERIN 2.5 MG (0.1 MG/HR) PATCH.TD24 TD SCH (08:00)
[2018-02-13] MEDS: LOSARTAN POTASSIUM 50 MG TABLET PO SCH (09:49)
[2018-02-13] MEDS: ASPIRIN 81 MG TABLET, CHEWABLE PO SCH (09:49)
[2018-02-13] MEDS: DOCUSATE SODIUM 100 MG CAPSULE PO SCH ×2 (09:49→18:21)
[2018-02-13] MEDS: CHOLECALCIFEROL (D3) 1,000 UNIT TABLET PO SCH ×2 (09:49→18:21)
[2018-02-13] MEDS: FUROSEMIDE 20 MG TABLET PO SCH (09:50)
[2018-02-13] MEDS: ENOXAPARIN SODIUM INJ 30 MG/0.3 ML DISP.SYRIN SUBCUT SCH (09:50)
[2018-02-13] MEDS: AMLODIPINE BESYLATE 5 MG TABLET PO SCH (09:50)
[2018-02-13] MEDS ORDERED: FUROSEMIDE 40 MG TABLET PO SCH ×2 (10:00)
[2018-02-13] MEDS ORDERED: METOPROLOL SUCCINATE 50 MG TAB.SR.24H PO SCH (10:00)
[2018-02-13] MEDS ORDERED: NITROGLYCERIN 5 MG (0.2 MG/HR) PATCH.TD24 TD ONE (14:15)
[2018-02-13] MEDS ORDERED: METOPROLOL SUCCINATE 50 MG TAB.SR.24H PO ONE (14:15)
[2018-02-13] MEDS ORDERED: LEVOFLOXACIN 500 MG TABLET PO ONE (14:30)
[2018-02-13] MEDS: LEVALBUTEROL HCL NEB 1.25 MG/3 ML AMPUL NEB SCH ×2 (16:13→23:35)
[2018-02-13] MEDS: IPRATROPIUM BROMIDE 0.02% NEB 0.5 MG/2.5 ML AMPUL NEB SCH ×2 (16:13→23:35)
--- NOTE | 2018-02-13 16:36 | PDOC PROGRESS REPORT ---
Subjective Progress Note for:: 02/13/18 Subjective:: 02/12/18: TANIYA JEAN BAPTISTE is a 87 year old female who presented to the emergency room with a history of a fall occurring on the night prior to arrival. She states that she fell sometime last night and was unable to get up. This morning she was found on the floor by her family when they came to check on her. She is uncertain of the length of time she spent on the floor if she is unsure of what time she fell. She denies loss of consciousness or striking her head at the time of her fall, but admits that she felt so weak that she could not get up after falling to the floor. She admits that she has been feeling weak for the last several days but is uncertain of the reason for her weakness. She denies fever, chills, nausea, vomiting, diarrhea, cough, chest pain, abdominal pain, sore throat, headache, rash, dysuria, hematuria, vertigo, dizziness and syncope. She complains of mild to moderate generalized achy muscular pain and adds that she did not have anything to drink all night because she was on the floor. She has not identified any aggravating or ameliorating factors for her falls and denies prior similar episodes (the family mentioned other falls in the past). In the emergency room she was found to have no evidence of fracture , dislocation or other acute skeletal injury. She was noted to have an elevated creatinine kinase at 2600 and a mildly elevated creatinine at 1.3. With these findings she was admitted to the hospital for evaluation and treatment of a mild rhabdomyolysis and acute renal injury. 02/13/18: Taniya feels like she is doing somewhat better today and that she is eating very well and does not feel like she is as weak as she has been for the last several days prior to admission. She has no pain at the present time and feels a little more energetic today, although she relates that she is having some shortness of breath and feels like she might be wheezing. She has not had any chest pain or cough. On examination she was found to have some moderate expiratory wheezing without prolongation of her expiratory phase. No rales or rhonchi were noted. I discussed these findings with the patient and her family and we will continue with her IV fluid therapy and serial creatinine kinase measurements as it appears that these have peaked at a little over 5000 with a will be followed until they have fallen less than 50% of the maximum. Will initiate a pulmonary toilet and cover the patient with an antibiotic suitable for a community-acquired bronchitis or pneumonitis. She and her family were delighted to know that her acute renal injury had resolved. Reason For Visit: ELEVATED CREATININE KINASE AFTER A FALL Physical Exam Vital Signs: Temp Pulse Resp BP Pulse Ox 98.7 F 72 18 153/55 H 98 02/13/18 11:53 02/13/18 14:00 02/13/18 11:53 02/13/18 11:53 02/13/18 11:53 Intake & Output 02/11/18 02/12/18 02/13/18 23:59 23:59 23:59 Intake Total 1000 1250 Balance 1000 1250 Weight 67.6 kg 67.8 kg General appearance: PRESENT: no acute distress, cooperative Head exam: PRESENT: atraumatic, normocephalic Eye exam: PRESENT: conjunctiva pink. ABSENT: scleral icterus Ear exam: PRESENT: normal external ear exam. ABSENT: bleeding Mouth exam: PRESENT: neck supple. ABSENT: tongue midline Neck exam: ABSENT: JVD, thyromegaly, tracheal deviation Respiratory exam: PRESENT: symmetrical, unlabored, wheezes - Moderate expiratory wheezes noted in all petersen.. ABSENT: prolonged expiratory phas, rales, rhonchi Cardiovascular exam: PRESENT: RRR. ABSENT: bradycardia, clicks, diastolic murmur, gallop, rubs, systolic murmur, tachycardia Vascular exam: PRESENT: normal capillary refill. ABSENT: pallor GI/Abdominal exam: PRESENT: normal bowel sounds, soft Rectal exam: PRESENT: deferred Extremities exam: ABSENT: joint swelling, pedal edema Musculoskeletal exam: PRESENT: full ROM, normal inspection. ABSENT: deformity, dislocation Neurological exam: PRESENT: alert, oriented to person, oriented to place, oriented to time, oriented to situation, CN II-XII grossly intact. ABSENT: motor sensory deficit Psychiatric exam: PRESENT: appropriate affect, normal mood Skin exam: ABSENT: jaundice, rash, urticaria Results Laboratory Results: 02/13/18 04:38 02/13/18 04:38 02/13/18 02/13/18 02/13/18 04:38 04:38 04:38 WBC 11.9 H RBC 4.20 Hgb 12.7 Hct 37.8 MCV 90 MCH 30.3 MCHC 33.6 RDW 13.8 Plt Count 279 Seg Neutrophils % 65.8 Lymphocytes % 24.7 Monocytes % 7.5 Eosinophils % 1.5 Basophils % 0.5 Absolute Neutrophils 7.8 Absolute Lymphocytes 2.9 Absolute Monocytes 0.9 Absolute Eosinophils 0.2 Absolute Basophils 0.1 Sodium 142.1 Potassium 4.1 Chloride 108 H Carbon Dioxide 25 Anion Gap 9 BUN 22 H Creatinine 0.99 Est GFR ( Amer) > 60 Est GFR (Non-Af Amer) 53 L Glucose 94 Calcium 9.6 Magnesium 2.0 Triglycerides 176 H Cholesterol 182.80 LDL Cholesterol Direct 92 VLDL Cholesterol 35.2 H HDL Cholesterol 56 TSH 0.38 L 02/12/18 02/12/18 02/12/18 16:55 16:55 18:10 Creatine Kinase 4226 H CK-MB (CK-2) 32.30 H Troponin I 0.069 0.076 NT-Pro-B Natriuret Pep 02/12/18 02/12/18 02/13/18 22:35 22:35 04:38 Creatine Kinase 5306 H 5047 H CK-MB (CK-2) 35.10 H Troponin I 0.068 NT-Pro-B Natriuret Pep 02/13/18 04:38 Creatine Kinase CK-MB (CK-2) 30.00 H Troponin I 0.066 NT-Pro-B Natriuret Pep 2470 H Impressions: Chest X-Ray 02/12/18 14:09 IMPRESSION: HEART ENLARGED WITHOUT FAILURE. NO OTHER SIGNIFICANT RADIOGRAPHIC FINDING IN THE CHEST. Assessment & Plan - Diagnosis (1) Weakness Is this a current diagnosis for this admission?: Yes Plan: 02/12/18: Patient will be rehydrated and her renal functions and electrolytes will be monitored. Thyroid function studies will be obtained. Physical therapy consultation will be obtained for evaluation and treatment. (2) Rhabdomyolysis Qualifiers: Rhabdomyolysis type: traumatic Encounter type: initial encounter Qualified Code(s): T79.6XXA - Traumatic ischemia of muscle, initial encounter Is this a current diagnosis for this admission?: Yes Plan: 02/12/18: Serial measurement of patient's creatinine phosphokinase will be obtained to evaluate the extent and degree of her rhabdomyolysis. IV hydration will be maintained to allow for adequate renal clearance of myoglobin and other muscular injury related byproducts. 02/13/18: Patient's creatinine kinase fred to levels over 5000 overnight. The serum creatinine kinase appears to have peaked at approximately 5400 but ongoing measurements will be done to evaluate the status of her mild rhabdomyolysis. (3) Acute renal failure Qualifiers: Acute renal failure type: unspecified Qualified Code(s): N17.9 - Acute kidney failure, unspecified Is this a current diagnosis for this admission?: Yes Plan: 02/12/18: Patient will be hydrated with IV fluid and her renal functions and electrolytes will be evaluated on a regular basis throughout her hospital course. 02/13/18: Patient's renal functions returned to normal and therefore her acute renal failure has been resolved. (4) Dehydration Is this a current diagnosis for this admission?: Yes Plan: 02/12/18: Patient will be rehydrated with IV fluids and serial measurements of her renal functions electrolytes will be obtained to determine need for further hydration. 02/13/18: Patient appears to be rehydrated at the present time with normal skin turgor and laboratory functions showing a normal state of hydration. Her dehydration is therefore resolved. (5) Leukocytosis, unspecified Is this a current diagnosis for this admission?: Yes Plan: 02/12/18: Daily CBCs will be obtained to evaluate the patient's leukocytosis and determine the course of further investigation. 02/13/18: Patient's white blood count has decreased to 11,900 on this morning's evaluation. Serial evaluation will continue. (6) Chronic diastolic CHF (congestive heart failure), NYHA class 2 Is this a current diagnosis for this admission?: No (7) Essential hypertension Is this a current diagnosis for this admission?: No (8) Hyperlipidemia, mixed Is this a current diagnosis for this admission?: No - Time Time Spent with patient: 25-34 minutes Anticipated discharge: Home, Home with Homehealth
[2018-02-13] MEDS: FAMOTIDINE 20 MG TABLET PO SCH (18:21)
[2018-02-13] MEDS: AZITHROMYCIN 250 MG TABLET PO SCH (18:21)
[2018-02-13] MEDS: ALBUTEROL SULFATE 0.083% NEB 2.5 MG/3 ML AMPUL NEB PRN (20:54)
[2018-02-13] MEDS: BUDESONIDE NEB 0.5 MG/2 ML AMPUL NEB SCH (20:54)
[2018-02-13] MEDS: ATORVASTATIN CALCIUM 20 MG TABLET PO SCH (21:57)
[2018-02-14] MEDS: NORMAL SALINE 1000 ML 1,000 ML IV PRN ×3 (03:27→20:28)
[2018-02-14 05:23] LABS: ABSOLUTE EOSINOPHILS # (AUTO) 0.2 10^3/uL (0.0-0.6); ABSOLUTE LYMPHOCYTES (AUTO) 2.1 10^3/uL (0.5-4.7); ABSOLUTE MONOCYTES (AUTO) 0.7 10^3/uL (0.1-1.4); ABSOLUTE NEUT (AUTO) 6.5 10^3/uL (1.7-8.2); BASOPHILS % (AUTO) 0.4 % (0-2); EOSINOPHILS % (AUTO) 1.9 % (0-6); HEMATOCRIT 35.7 % (36.0-47.0); HEMOGLOBIN 12.2 g/dL (12.0-15.5); LYMPHOCYTES % (AUTO) 22.3 % (13-45); MEAN CORPUSCULAR HEMOGLOBIN 31.2 pg (27.0-33.4); MEAN CORPUSCULAR HGB CONC 34.2 g/dL (32.0-36.0); MEAN CORPUSCULAR VOLUME 91 fl (80-97); MONOCYTES % (AUTO) 7.1 % (3-13); PLATELET COUNT 261 10^3/uL (150-450); RED BLOOD COUNT 3.91 10^6/uL (3.72-5.28); RED CELL DISTRIBUTION WIDTH 13.9 % (11.5-14.0); SEGMENTED NEUTROPHILS % (AUTO) 68.3 % (42-78); TOTAL CELLS COUNTED % (AUTO) 100 %; WHITE BLOOD COUNT 9.5 10^3/uL (4.0-10.5)
[2018-02-14 05:46] LABS: ANION GAP 5 (5-19); BLOOD UREA NITROGEN 15 mg/dL (7-20); CALCIUM 8.8 mg/dL (8.4-10.2); CARBON DIOXIDE 27 mmol/L (22-30); CHLORIDE 111 mmol/L (98-107); GLUCOSE 100 mg/dL (75-110); POTASSIUM 4.4 mmol/L (3.6-5.0); SODIUM 142.7 mmol/L (137-145)
[2018-02-14 05:52] LABS: CREATINE KINASE 2539 U/L (30-135)
[2018-02-14] MEDS ORDERED: METHYLPREDNISOLONE INJ 40 MG/1 ML SDV IV SCH (06:00)
[2018-02-14] MEDS: LEVALBUTEROL HCL NEB 1.25 MG/3 ML AMPUL NEB SCH ×2 (08:30→15:56)
[2018-02-14] MEDS: BUDESONIDE NEB 0.5 MG/2 ML AMPUL NEB SCH ×2 (08:30→20:23)
[2018-02-14] MEDS: IPRATROPIUM BROMIDE 0.02% NEB 0.5 MG/2.5 ML AMPUL NEB SCH ×2 (08:30→15:56)
[2018-02-14] MEDS: CHOLECALCIFEROL (D3) 1,000 UNIT TABLET PO SCH ×2 (08:41→17:52)
[2018-02-14] MEDS: NITROGLYCERIN 5 MG (0.2 MG/HR) PATCH.TD24 TD SCH (08:41)
[2018-02-14] MEDS: AMLODIPINE BESYLATE 5 MG TABLET PO SCH (09:46)
[2018-02-14] MEDS: ENOXAPARIN SODIUM INJ 30 MG/0.3 ML DISP.SYRIN SUBCUT SCH (09:46)
[2018-02-14] MEDS: METOPROLOL SUCCINATE 50 MG TAB.SR.24H PO SCH (09:47)
[2018-02-14] MEDS: LOSARTAN POTASSIUM 50 MG TABLET PO SCH (09:48)
[2018-02-14] MEDS: ASPIRIN 81 MG TABLET, CHEWABLE PO SCH (09:48)
[2018-02-14] MEDS: DOCUSATE SODIUM 100 MG CAPSULE PO SCH ×2 (09:48→17:52)
[2018-02-14] MEDS: FUROSEMIDE 20 MG TABLET PO SCH (09:48)
[2018-02-14] MEDS: AZITHROMYCIN 250 MG TABLET PO SCH (09:53)
[2018-02-14] MEDS ORDERED: LEVOFLOXACIN 250 MG TABLET PO SCH (10:00)
[2018-02-14] MEDS: FAMOTIDINE 20 MG TABLET PO SCH (17:52)
--- NOTE | 2018-02-14 18:12 | PDOC PROGRESS REPORT ---
Subjective Progress Note for:: 02/14/18 Subjective:: 02/12/18: TANIYA JEAN BAPTISTE is a 87 year old female who presented to the emergency room with a history of a fall occurring on the night prior to arrival. She states that she fell sometime last night and was unable to get up. This morning she was found on the floor by her family when they came to check on her. She is uncertain of the length of time she spent on the floor if she is unsure of what time she fell. She denies loss of consciousness or striking her head at the time of her fall, but admits that she felt so weak that she could not get up after falling to the floor. She admits that she has been feeling weak for the last several days but is uncertain of the reason for her weakness. She denies fever, chills, nausea, vomiting, diarrhea, cough, chest pain, abdominal pain, sore throat, headache, rash, dysuria, hematuria, vertigo, dizziness and syncope. She complains of mild to moderate generalized achy muscular pain and adds that she did not have anything to drink all night because she was on the floor. She has not identified any aggravating or ameliorating factors for her falls and denies prior similar episodes (the family mentioned other falls in the past). In the emergency room she was found to have no evidence of fracture , dislocation or other acute skeletal injury. She was noted to have an elevated creatinine kinase at 2600 and a mildly elevated creatinine at 1.3. With these findings she was admitted to the hospital for evaluation and treatment of a mild rhabdomyolysis and acute renal injury. 02/13/18: Taniya feels like she is doing somewhat better today and that she is eating very well and does not feel like she is as weak as she has been for the last several days prior to admission. She has no pain at the present time and feels a little more energetic today, although she relates that she is having some shortness of breath and feels like she might be wheezing. She has not had any chest pain or cough. On examination she was found to have some moderate expiratory wheezing without prolongation of her expiratory phase. No rales or rhonchi were noted. I discussed these findings with the patient and her family and we will continue with her IV fluid therapy and serial creatinine kinase measurements as it appears that these have peaked at a little over 5000 with a will be followed until they have fallen less than 50% of the maximum. Will initiate a pulmonary toilet and cover the patient with an antibiotic suitable for a community-acquired bronchitis or pneumonitis. She and her family were delighted to know that her acute renal injury had resolved. 02/14/18: Taniya continues to do quite well she is eating well and her weakness is been significantly reduced. She has been able to sit up for meals and has gotten up to go to the bathroom and back to bed with the help of physical therapy. She was evidently having some mild wheezing this morning but it has resolved since receiving a breathing treatment earlier today. She was delighted to hear that her creatinine kinase had fallen to 2500 and that she would be able to be discharged soon. We have discussed this at length and have determined that she should be ready for discharge tomorrow after having had an opportunity to get up and get a little more physical therapy here in the hospital. Plan would be to discharge patient with home health physical therapy and nursing. Reason For Visit: ELEVATED CREATININE KINASE AFTER A FALL Physical Exam Vital Signs: Temp Pulse Resp BP Pulse Ox 98.1 F 65 20 144/52 H 100 02/14/18 16:00 02/14/18 16:00 02/14/18 16:00 02/14/18 16:00 02/14/18 16:00 Intake & Output 02/12/18 02/13/18 02/14/18 23:59 23:59 23:59 Intake Total 1000 2961 2100 Balance 1000 2961 2100 Weight 67.6 kg 67.8 kg General appearance: PRESENT: no acute distress, cooperative Head exam: PRESENT: atraumatic, normocephalic Eye exam: ABSENT: conjunctival injection, scleral icterus Ear exam: PRESENT: normal external ear exam. ABSENT: drainage Mouth exam: PRESENT: neck supple, tongue midline Neck exam: ABSENT: thyromegaly, tracheal deviation Respiratory exam: PRESENT: clear to auscultation antonio, symmetrical, unlabored Cardiovascular exam: PRESENT: RRR. ABSENT: clicks, gallop, rubs Vascular exam: PRESENT: normal capillary refill. ABSENT: pallor GI/Abdominal exam: PRESENT: normal bowel sounds, soft Rectal exam: PRESENT: deferred Extremities exam: ABSENT: joint swelling, pedal edema Musculoskeletal exam: ABSENT: deformity, dislocation Neurological exam: PRESENT: alert, oriented to person, oriented to place, oriented to time, oriented to situation Psychiatric exam: PRESENT: appropriate affect, normal mood Skin exam: PRESENT: intact. ABSENT: jaundice Results Laboratory Results: 02/14/18 04:49 02/14/18 04:49 02/14/18 02/14/18 04:49 04:49 WBC 9.5 RBC 3.91 Hgb 12.2 Hct 35.7 L MCV 91 MCH 31.2 MCHC 34.2 RDW 13.9 Plt Count 261 Seg Neutrophils % 68.3 Lymphocytes % 22.3 Monocytes % 7.1 Eosinophils % 1.9 Basophils % 0.4 Absolute Neutrophils 6.5 Absolute Lymphocytes 2.1 Absolute Monocytes 0.7 Absolute Eosinophils 0.2 Absolute Basophils 0.0 Sodium 142.7 Potassium 4.4 Chloride 111 H Carbon Dioxide 27 Anion Gap 5 BUN 15 Creatinine 0.81 Est GFR ( Amer) > 60 Est GFR (Non-Af Amer) > 60 Glucose 100 Calcium 8.8 Magnesium 1.8 02/12/18 02/12/18 02/12/18 16:55 16:55 18:10 Creatine Kinase 4226 H CK-MB (CK-2) 32.30 H Troponin I 0.069 0.076 NT-Pro-B Natriuret Pep 02/12/18 02/12/18 02/13/18 22:35 22:35 04:38 Creatine Kinase 5306 H 5047 H CK-MB (CK-2) 35.10 H Troponin I 0.068 NT-Pro-B Natriuret Pep 02/13/18 02/14/18 04:38 04:49 Creatine Kinase 2539 H CK-MB (CK-2) 30.00 H Troponin I 0.066 NT-Pro-B Natriuret Pep 2470 H Impressions: Chest X-Ray 02/12/18 14:09 IMPRESSION: HEART ENLARGED WITHOUT FAILURE. NO OTHER SIGNIFICANT RADIOGRAPHIC FINDING IN THE CHEST. Assessment & Plan - Diagnosis (1) Weakness Is this a current diagnosis for this admission?: Yes Plan: 02/12/18: Patient will be rehydrated and her renal functions and electrolytes will be monitored. Thyroid function studies will be obtained. Physical therapy consultation will be obtained for evaluation and treatment. (2) Rhabdomyolysis Qualifiers: Rhabdomyolysis type: traumatic Encounter type: initial encounter Qualified Code(s): T79.6XXA - Traumatic ischemia of muscle, initial encounter Is this a current diagnosis for this admission?: Yes Plan: 02/12/18: Serial measurement of patient's creatinine phosphokinase will be obtained to evaluate the extent and degree of her rhabdomyolysis. IV hydration will be maintained to allow for adequate renal clearance of myoglobin and other muscular injury related byproducts. 02/13/18: Patient's creatinine kinase fred to levels over 5000 overnight. The serum creatinine kinase appears to have peaked at approximately 5400 but ongoing measurements will be done to evaluate the status of her mild rhabdomyolysis. 02/14/18: Patient's creatinine kinase is now dropped to 2500 and will probably fall further by tomorrow. Patient states she is feeling quite well and plans for discharge tomorrow are being made. (3) Acute renal failure Qualifiers: Acute renal failure type: unspecified Qualified Code(s): N17.9 - Acute kidney failure, unspecified Is this a current diagnosis for this admission?: Yes Plan: 02/12/18: Patient will be hydrated with IV fluid and her renal functions and electrolytes will be evaluated on a regular basis throughout her hospital course. 02/13/18: Patient's renal functions returned to normal and therefore her acute renal failure has been resolved. (4) Dehydration Is this a current diagnosis for this admission?: Yes Plan: 02/12/18: Patient will be rehydrated with IV fluids and serial measurements of her renal functions electrolytes will be obtained to determine need for further hydration. 02/13/18: Patient appears to be rehydrated at the present time with normal skin turgor and laboratory functions showing a normal state of hydration. Her dehydration is therefore resolved. (5) Leukocytosis, unspecified Is this a current diagnosis for this admission?: Yes Plan: 02/12/18: Daily CBCs will be obtained to evaluate the patient's leukocytosis and determine the course of further investigation. 02/13/18: Patient's white blood count has decreased to 11,900 on this morning's evaluation. Serial evaluation will continue. 02/14/18: Patient's white count today is now 9000 and is in the normal range. This would signify that her leukocytosis has resolved. (6) Bronchospasm, acute Is this a current diagnosis for this admission?: Yes Plan: 02/14/18: Patient's progress spasm was dramatically improved with nebulizer therapy utilizing Xopenex and Atrovent. I would plan to discharge the patient to home with a Xopenex inhaler. (7) Chronic diastolic CHF (congestive heart failure), NYHA class 2 Is this a current diagnosis for this admission?: No (8) Essential hypertension Is this a current diagnosis for this admission?: No (9) Hyperlipidemia, mixed Is this a current diagnosis for this admission?: No - Time Time Spent with patient: 15-24 minutes Anticipated discharge: Home with Homehealth - Home with home health nursing and physical therapy
[2018-02-14] MEDS: ATORVASTATIN CALCIUM 20 MG TABLET PO SCH (21:07)
[2018-02-15] MEDS: IPRATROPIUM BROMIDE 0.02% NEB 0.5 MG/2.5 ML AMPUL NEB SCH ×3 (00:49→15:38)
[2018-02-15] MEDS: LEVALBUTEROL HCL NEB 1.25 MG/3 ML AMPUL NEB SCH ×3 (00:49→15:38)
[2018-02-15] MEDS: NORMAL SALINE 1000 ML 1,000 ML IV PRN (01:29)
[2018-02-15] MEDS: ALBUTEROL SULFATE 0.083% NEB 2.5 MG/3 ML AMPUL NEB PRN (05:46)
[2018-02-15] MEDS ORDERED: FUROSEMIDE INJ/PF 20 MG/2 ML SDV ONE (05:56)
[2018-02-15] MEDS ORDERED: FUROSEMIDE INJ/PF 20 MG/2 ML SDV IV ONE ×2 (06:00→07:00)
[2018-02-15 06:26] LABS: ARTERIAL BLOOD BASE EXCESS -7.2 mmol/L; ARTERIAL BLOOD H2CO3 1.76 mmol/L (1.05-1.35); ARTERIAL BLOOD HCO3 21.7 mmol/L (20-24); ARTERIAL BLOOD O2 SATURATION 92.9 % (94-98); ARTERIAL BLOOD PCO2 58.4 mmHg (35-45); ARTERIAL BLOOD PO2 80.9 mmHg (80-100); ARTERIAL BLOOD TOTAL CO2 23.4 mmol/L (21-25)
[2018-02-15 06:30] LABS: ARTERIAL BLOOD FIO2 40%
[2018-02-15 06:32] LABS: ARTERIAL BLOOD PH 7.19 (7.35-7.45)
--- NOTE | 2018-02-15 06:35 | RADIOLOGY REPORT (SQ) ---
EXAM DESCRIPTION: X-ray single view chest. CLINICAL HISTORY: 87 years Female, SOB, wheezing COMPARISON: Prior portable chest performed on 02/12/2018. TECHNIQUE: Single portable view of the chest performed on 02/15/2018 at 6:20 AM FINDINGS: The lungs are well expanded. There is increasing volume loss in the lung bases particularly the right lung base. These findings may reflect developing pleural effusions and atelectasis. An infectious or inflammatory infiltrate are not excluded. Pulmonary edema is also a consideration. There is no evidence of a pneumothorax. The cardiac silhouette is normal in size and configuration. The mediastinal contours are normal. No acute osseous abnormality is identified. No focal soft tissue abnormalities are seen. Lines and tubes: None. IMPRESSION: Increasing volume loss in the lung bases which may be due to developing pleural fluid and atelectasis. An underlying infectious or inflammatory infiltrate are not excluded. Developing pulmonary edema is also a consideration.
[2018-02-15 06:40] LABS: ABSOLUTE BASOPHILS # (AUTO) 0.1 10^3/uL (0.0-0.2); ABSOLUTE EOSINOPHILS # (AUTO) 0.1 10^3/uL (0.0-0.6); ABSOLUTE LYMPHOCYTES (AUTO) 2.7 10^3/uL (0.5-4.7); ABSOLUTE MONOCYTES (AUTO) 1.1 10^3/uL (0.1-1.4); ABSOLUTE NEUT (AUTO) 13.4 10^3/uL (1.7-8.2); BASOPHILS % (AUTO) 0.3 % (0-2); EOSINOPHILS % (AUTO) 0.6 % (0-6); HEMATOCRIT 38.4 % (36.0-47.0); LYMPHOCYTES % (AUTO) 15.6 % (13-45); MEAN CORPUSCULAR HGB CONC 33.9 g/dL (32.0-36.0); MEAN CORPUSCULAR VOLUME 91 fl (80-97); MONOCYTES % (AUTO) 6.2 % (3-13); PLATELET COUNT 362 10^3/uL (150-450); RED CELL DISTRIBUTION WIDTH 14.1 % (11.5-14.0); SEGMENTED NEUTROPHILS % (AUTO) 77.3 % (42-78); TOTAL CELLS COUNTED % (AUTO) 100 %; WHITE BLOOD COUNT 17.3 10^3/uL (4.0-10.5)
[2018-02-15 07:06] LABS: ANION GAP 8 (5-19); BLOOD UREA NITROGEN 18 mg/dL (7-20); CALCIUM 9.5 mg/dL (8.4-10.2); CARBON DIOXIDE 25 mmol/L (22-30); CHLORIDE 109 mmol/L (98-107); CREATINE KINASE 1575 U/L (30-135); GLUCOSE 107 mg/dL (75-110); POTASSIUM 4.3 mmol/L (3.6-5.0)
[2018-02-15] MEDS: BUDESONIDE NEB 0.5 MG/2 ML AMPUL NEB SCH ×2 (08:04→20:14)
[2018-02-15] MEDS: LOSARTAN POTASSIUM 50 MG TABLET PO SCH (10:19)
[2018-02-15] MEDS: AMLODIPINE BESYLATE 5 MG TABLET PO SCH (10:20)
[2018-02-15] MEDS: CHOLECALCIFEROL (D3) 1,000 UNIT TABLET PO SCH ×2 (10:20→17:12)
[2018-02-15] MEDS: NITROGLYCERIN 5 MG (0.2 MG/HR) PATCH.TD24 TD SCH (10:20)
[2018-02-15] MEDS: ASPIRIN 81 MG TABLET, CHEWABLE PO SCH (10:21)
[2018-02-15] MEDS: METOPROLOL SUCCINATE 50 MG TAB.SR.24H PO SCH (10:21)
[2018-02-15] MEDS: AZITHROMYCIN 250 MG TABLET PO SCH (11:09)
[2018-02-15] MEDS: ENOXAPARIN SODIUM INJ 30 MG/0.3 ML DISP.SYRIN SUBCUT SCH (11:11)
[2018-02-15] MEDS: DOCUSATE SODIUM 100 MG CAPSULE PO SCH ×2 (11:12→17:12)
[2018-02-15 11:48] LABS: ARTERIAL BLOOD BASE EXCESS -2.6 mmol/L; ARTERIAL BLOOD H2CO3 1.49 mmol/L (1.05-1.35); ARTERIAL BLOOD HCO3 24.1 mmol/L (20-24); ARTERIAL BLOOD O2 SATURATION 95.5 % (94-98); ARTERIAL BLOOD PCO2 49.5 mmHg (35-45); ARTERIAL BLOOD PH 7.31 (7.35-7.45); ARTERIAL BLOOD PO2 85.2 mmHg (80-100); ARTERIAL BLOOD TOTAL CO2 25.7 mmol/L (21-25)
[2018-02-15 11:49] LABS: ARTERIAL BLOOD FIO2 40%
[2018-02-15] MEDS ORDERED: BUMETANIDE INJ/PF 1 MG/4 ML SDV IV ONE (13:00)
--- NOTE | 2018-02-15 15:18 | PDOC PROGRESS REPORT ---
Subjective Progress Note for:: 02/15/18 Subjective:: 02/12/18: TANIYA JEAN BAPTISTE is a 87 year old female who presented to the emergency room with a history of a fall occurring on the night prior to arrival. She states that she fell sometime last night and was unable to get up. This morning she was found on the floor by her family when they came to check on her. She is uncertain of the length of time she spent on the floor if she is unsure of what time she fell. She denies loss of consciousness or striking her head at the time of her fall, but admits that she felt so weak that she could not get up after falling to the floor. She admits that she has been feeling weak for the last several days but is uncertain of the reason for her weakness. She denies fever, chills, nausea, vomiting, diarrhea, cough, chest pain, abdominal pain, sore throat, headache, rash, dysuria, hematuria, vertigo, dizziness and syncope. She complains of mild to moderate generalized achy muscular pain and adds that she did not have anything to drink all night because she was on the floor. She has not identified any aggravating or ameliorating factors for her falls and denies prior similar episodes (the family mentioned other falls in the past). In the emergency room she was found to have no evidence of fracture , dislocation or other acute skeletal injury. She was noted to have an elevated creatinine kinase at 2600 and a mildly elevated creatinine at 1.3. With these findings she was admitted to the hospital for evaluation and treatment of a mild rhabdomyolysis and acute renal injury. 02/13/18: Taniya feels like she is doing somewhat better today and that she is eating very well and does not feel like she is as weak as she has been for the last several days prior to admission. She has no pain at the present time and feels a little more energetic today, although she relates that she is having some shortness of breath and feels like she might be wheezing. She has not had any chest pain or cough. On examination she was found to have some moderate expiratory wheezing without prolongation of her expiratory phase. No rales or rhonchi were noted. I discussed these findings with the patient and her family and we will continue with her IV fluid therapy and serial creatinine kinase measurements as it appears that these have peaked at a little over 5000 with a will be followed until they have fallen less than 50% of the maximum. Will initiate a pulmonary toilet and cover the patient with an antibiotic suitable for a community-acquired bronchitis or pneumonitis. She and her family were delighted to know that her acute renal injury had resolved. 02/14/18: Taniya continues to do quite well she is eating well and her weakness is been significantly reduced. She has been able to sit up for meals and has gotten up to go to the bathroom and back to bed with the help of physical therapy. She was evidently having some mild wheezing this morning but it has resolved since receiving a breathing treatment earlier today. She was delighted to hear that her creatinine kinase had fallen to 2500 and that she would be able to be discharged soon. We have discussed this at length and have determined that she should be ready for discharge tomorrow after having had an opportunity to get up and get a little more physical therapy here in the hospital. Plan would be to discharge patient with home health physical therapy and nursing. 02/15/18: Taniya developed some respiratory distress last night which appears to be due to iatrogenic fluid overload. Her IV fluids were discontinued, she was placed on BiPAP after she was found to have an elevated PCO2 with a respiratory acidosis and she was given 20 mg of Lasix x1. Her respirations have improved since that time but she continues to have some mild wheezing at times which may well reflect mild changes of interstitial pulmonary edema. Her creatinine kinase has dropped again to the 1500 level. She has been eating and drinking well while enjoying good pain control, but has been mildly confused on an intermittent basis as noted by her family. She continues to refuse to ambulate in the [place] with assistance, but will get up and ambulate back and forth to the bathroom with help. Her primary problem with confusion is that she tries to get up and walk on her own without assistance. I have agreed to try to get physical therapy to ambulate the patient in the [place] with assistance though her ambulatory distance tolerance is probably less than 200 feet this may show improvement with additional therapy. Reason For Visit: ELEVATED CREATININE KINASE AFTER A FALL Physical Exam Vital Signs: Temp Pulse Resp BP Pulse Ox 97.8 F 70 24 H 129/50 H 97 02/15/18 11:59 02/15/18 14:00 02/15/18 11:59 02/15/18 11:59 02/15/18 11:59 Intake & Output 02/13/18 02/14/18 02/15/18 23:59 23:59 22:59 Intake Total 2961 3100 1400 Output Total 400 Balance 2961 3100 1000 Weight 67.8 kg 69.5 kg General appearance: PRESENT: no acute distress, cooperative Head exam: PRESENT: atraumatic, normocephalic Eye exam: PRESENT: conjunctiva pink, EOMI Ear exam: PRESENT: normal external ear exam. ABSENT: drainage Mouth exam: PRESENT: moist, neck supple Neck exam: ABSENT: JVD, tracheal deviation Respiratory exam: PRESENT: rales - The patient has moderate fine rales present at the bilateral bases which do have a "wheezing" sound quality, however they are heard on inspiration and are most definitely rales., symmetrical, unlabored. ABSENT: decreased breath sounds, prolonged expiratory phas, wheezes Cardiovascular exam: PRESENT: gallop - A faint S4 gallop is noted., RRR. ABSENT : clicks, diastolic murmur, rubs, systolic murmur Vascular exam: PRESENT: normal capillary refill. ABSENT: pallor GI/Abdominal exam: PRESENT: normal bowel sounds, soft Rectal exam: PRESENT: deferred Extremities exam: PRESENT: pedal edema - trace to 1+ bipedal edema is noted. ABSENT: joint swelling Musculoskeletal exam: ABSENT: deformity, dislocation Neurological exam: PRESENT: alert, oriented to person, oriented to place, CN II- XII grossly intact, other - Short-term memory deficits are noted.. ABSENT: oriented to time, oriented to situation, motor sensory deficit Psychiatric exam: PRESENT: appropriate affect, normal mood Skin exam: ABSENT: jaundice, rash, urticaria Results Laboratory Results: 02/15/18 05:07 02/15/18 05:07 02/15/18 02/15/18 02/15/18 05:07 05:07 06:05 WBC 17.3 H RBC 4.20 Hgb 13.0 Hct 38.4 MCV 91 MCH 31.0 MCHC 33.9 RDW 14.1 H Plt Count 362 Seg Neutrophils % 77.3 Lymphocytes % 15.6 Monocytes % 6.2 Eosinophils % 0.6 Basophils % 0.3 Absolute Neutrophils 13.4 H Absolute Lymphocytes 2.7 Absolute Monocytes 1.1 Absolute Eosinophils 0.1 Absolute Basophils 0.1 Carbonic Acid 1.76 H HCO3/H2CO3 Ratio 12:1 ABG pH 7.19 L* ABG pCO2 58.4 H ABG pO2 80.9 ABG HCO3 21.7 ABG O2 Saturation 92.9 L ABG Base Excess -7.2 FiO2 40% Sodium 142.0 Potassium 4.3 Chloride 109 H Carbon Dioxide 25 Anion Gap 8 BUN 18 Creatinine 0.82 Est GFR ( Amer) > 60 Est GFR (Non-Af Amer) > 60 Glucose 107 Calcium 9.5 Magnesium 1.7 02/15/18 11:25 WBC RBC Hgb Hct MCV MCH MCHC RDW Plt Count Seg Neutrophils % Lymphocytes % Monocytes % Eosinophils % Basophils % Absolute Neutrophils Absolute Lymphocytes Absolute Monocytes Absolute Eosinophils Absolute Basophils Carbonic Acid 1.49 H HCO3/H2CO3 Ratio 16:1 ABG pH 7.31 L ABG pCO2 49.5 H ABG pO2 85.2 ABG HCO3 24.1 H ABG O2 Saturation 95.5 ABG Base Excess -2.6 FiO2 40% Sodium Potassium Chloride Carbon Dioxide Anion Gap BUN Creatinine Est GFR ( Amer) Est GFR (Non-Af Amer) Glucose Calcium Magnesium 02/12/18 02/12/18 02/12/18 16:55 16:55 18:10 Creatine Kinase 4226 H CK-MB (CK-2) 32.30 H Troponin I 0.069 0.076 NT-Pro-B Natriuret Pep 02/12/18 02/12/18 02/13/18 22:35 22:35 04:38 Creatine Kinase 5306 H 5047 H CK-MB (CK-2) 35.10 H Troponin I 0.068 NT-Pro-B Natriuret Pep 02/13/18 02/14/18 02/15/18 04:38 04:49 05:07 Creatine Kinase 2539 H 1575 H CK-MB (CK-2) 30.00 H Troponin I 0.066 NT-Pro-B Natriuret Pep 2470 H Impressions: Chest X-Ray 02/15/18 00:00 IMPRESSION: Increasing volume loss in the lung bases which may be due to developing pleural fluid and atelectasis. An underlying infectious or inflammatory infiltrate are not excluded. Developing pulmonary edema is also a consideration. Status: Image reviewed by me - Chest x-ray is reviewed by myself and it shows early evidence of congestive heart failure with increased pulmonary vascular markings and mild interstitial edema. Assessment & Plan - Diagnosis (1) Rhabdomyolysis Qualifiers: Rhabdomyolysis type: traumatic Encounter type: initial encounter Qualified Code(s): T79.6XXA - Traumatic ischemia of muscle, initial encounter Is this a current diagnosis for this admission?: Yes Plan: 02/12/18: Serial measurement of patient's creatinine phosphokinase will be obtained to evaluate the extent and degree of her rhabdomyolysis. IV hydration will be maintained to allow for adequate renal clearance of myoglobin and other muscular injury related byproducts. 02/13/18: Patient's creatinine kinase fred to levels over 5000 overnight. The serum creatinine kinase appears to have peaked at approximately 5400 but ongoing measurements will be done to evaluate the status of her mild rhabdomyolysis. 02/14/18: Patient's creatinine kinase is now dropped to 2500 and will probably fall further by tomorrow. Patient states she is feeling quite well and plans for discharge tomorrow are being made. 02/15/18: Patient's creatinine kinase is now down to 1500s. She will be staying in the hospital another day and another creatinine kinase will be obtained with tomorrow morning's labs. (2) Weakness Is this a current diagnosis for this admission?: Yes Plan: 02/12/18: Patient will be rehydrated and her renal functions and electrolytes will be monitored. Thyroid function studies will be obtained. Physical therapy consultation will be obtained for evaluation and treatment. (3) Chronic diastolic CHF (congestive heart failure), NYHA class 2 Is this a current diagnosis for this admission?: Yes Plan: 02/15/18: Patient developed iatrogenic congestive heart failure due to aggressive rehydration in an attempt to reduce the patient's myoglobin load. She has responded well to a brief use of BiPAP as well as diuretic therapy. At the time of my evaluation today she continues to show some evidence of heart failure and therefore I will give her an additional dose of Bumex 2 mg IV x1 this afternoon and I will plan to reevaluate her tomorrow morning to determine if she can be discharged to home. Patient will probably need home health follow -up at the time of her discharge. Discharge planning will be informed. (4) Essential hypertension Is this a current diagnosis for this admission?: Yes Plan: Patient will be continued on her current antihypertensive regiment. (5) Bronchospasm, acute Is this a current diagnosis for this admission?: Yes Plan: 02/14/18: Patient's bronchospasm which developed last night was dramatically improved with nebulizer therapy utilizing Xopenex and Atrovent cord observation by family members and the ring sorter. I will plan to discharge the patient to home with a Xopenex inhaler if she continues to demonstrate improvement after being treated with selective beta agonist agents. (6) Hyperlipidemia, mixed Is this a current diagnosis for this admission?: No Plan: Patient will be continued on her current statin therapy with Lipitor. (7) Acute renal failure Qualifiers: Acute renal failure type: unspecified Qualified Code(s): N17.9 - Acute kidney failure, unspecified Is this a current diagnosis for this admission?: Yes Plan: 02/12/18: Patient will be hydrated with IV fluid and her renal functions and electrolytes will be evaluated on a regular basis throughout her hospital course. 02/13/18: Patient's renal functions returned to normal and therefore her acute renal failure has been resolved. (8) Dehydration Is this a current diagnosis for this admission?: Yes Plan: 02/12/18: Patient will be rehydrated with IV fluids and serial measurements of her renal functions electrolytes will be obtained to determine need for further hydration. 02/13/18: Patient appears to be rehydrated at the present time with normal skin turgor and laboratory functions showing a normal state of hydration. Her dehydration is therefore resolved. (9) Leukocytosis, unspecified Is this a current diagnosis for this admission?: Yes Plan: 02/12/18: Daily CBCs will be obtained to evaluate the patient's leukocytosis and determine the course of further investigation. 02/13/18: Patient's white blood count has decreased to 11,900 on this morning's evaluation. Serial evaluation will continue. 02/14/18: Patient's white count today is now 9000 and is in the normal range. This would signify that her leukocytosis has resolved. - Time Time Spent with patient: 15-24 minutes Medications reviewed and adjusted accordingly: Yes Anticipated discharge: Home with Homehealth - Home health nursing for follow-up of a brief acute exacerbation of her chronic diastolic congestive heart failure and home health physical therapy for increasing the patient's exercise tolerance and stabilization in her ambulation and other activities. Within: within 24 hours
[2018-02-15] MEDS: FAMOTIDINE 20 MG TABLET PO SCH (17:12)
[2018-02-15] MEDS ORDERED: DILTIAZEM HCL INJ 25 MG/5 ML VIAL IV ONE (19:20)
[2018-02-15] MEDS: ATORVASTATIN CALCIUM 20 MG TABLET PO SCH (21:25)
--- NOTE | 2018-02-15 22:17 | EKG REPORT ---
SEVERITY:- ABNORMAL ECG - SINUS RHYTHM MULTIPLE VENTRICULAR PREMATURE COMPLEXES CONSIDER ANTEROSEPTAL INFARCT : Confirmed by: Maggy Dixon MD 15-Feb-2018 22:16:41
[2018-02-16] MEDS: IPRATROPIUM BROMIDE 0.02% NEB 0.5 MG/2.5 ML AMPUL NEB SCH ×3 (00:15→16:12)
[2018-02-16] MEDS: LEVALBUTEROL HCL NEB 1.25 MG/3 ML AMPUL NEB SCH ×3 (00:15→16:12)
[2018-02-16] MEDS: BUDESONIDE NEB 0.5 MG/2 ML AMPUL NEB SCH (08:12)
[2018-02-16] MEDS: NITROGLYCERIN 5 MG (0.2 MG/HR) PATCH.TD24 TD SCH (08:32)
[2018-02-16] MEDS: CHOLECALCIFEROL (D3) 1,000 UNIT TABLET PO SCH (08:33)
[2018-02-16 09:14] LABS: ABSOLUTE BASOPHILS # (AUTO) 0.1 10^3/uL (0.0-0.2); ABSOLUTE EOSINOPHILS # (AUTO) 0.3 10^3/uL (0.0-0.6); ABSOLUTE LYMPHOCYTES (AUTO) 2.4 10^3/uL (0.5-4.7); ABSOLUTE MONOCYTES (AUTO) 0.6 10^3/uL (0.1-1.4); ABSOLUTE NEUT (AUTO) 6.7 10^3/uL (1.7-8.2); BASOPHILS % (AUTO) 0.5 % (0-2); EOSINOPHILS % (AUTO) 2.9 % (0-6); HEMATOCRIT 35.3 % (36.0-47.0); LYMPHOCYTES % (AUTO) 23.9 % (13-45); MEAN CORPUSCULAR HEMOGLOBIN 30.7 pg (27.0-33.4); MEAN CORPUSCULAR HGB CONC 34.1 g/dL (32.0-36.0); MEAN CORPUSCULAR VOLUME 90 fl (80-97); MONOCYTES % (AUTO) 5.8 % (3-13); PLATELET COUNT 274 10^3/uL (150-450); RED BLOOD COUNT 3.91 10^6/uL (3.72-5.28); RED CELL DISTRIBUTION WIDTH 14.2 % (11.5-14.0); SEGMENTED NEUTROPHILS % (AUTO) 66.9 % (42-78); TOTAL CELLS COUNTED % (AUTO) 100 %
[2018-02-16] MEDS: DOCUSATE SODIUM 100 MG CAPSULE PO SCH (09:24)
[2018-02-16] MEDS: LOSARTAN POTASSIUM 50 MG TABLET PO SCH (09:24)
[2018-02-16] MEDS: METOPROLOL SUCCINATE 50 MG TAB.SR.24H PO SCH (09:24)
[2018-02-16] MEDS: ASPIRIN 81 MG TABLET, CHEWABLE PO SCH (09:25)
[2018-02-16] MEDS: ENOXAPARIN SODIUM INJ 30 MG/0.3 ML DISP.SYRIN SUBCUT SCH (09:25)
[2018-02-16] MEDS: AMLODIPINE BESYLATE 5 MG TABLET PO SCH (09:25)
[2018-02-16 09:34] LABS: ANION GAP 8 (5-19); BLOOD UREA NITROGEN 23 mg/dL (7-20); CALCIUM 9.5 mg/dL (8.4-10.2); CARBON DIOXIDE 30 mmol/L (22-30); CHLORIDE 105 mmol/L (98-107); CREATINE KINASE 1080 U/L (30-135); GLUCOSE 175 mg/dL (75-110); SODIUM 142.7 mmol/L (137-145)
[2018-02-16 09:38] LABS: POTASSIUM 3.9 mmol/L (3.6-5.0)
--- NOTE | 2018-02-16 14:13 | PDOC DISCHARGE SUMMARY ---
General - Admit/Disc Date/PCP Admission Date/Primary Care Provider: 02/12/18 16:26 KARTIK BECKER MD Discharge Date: 02/16/18 - Discharge Diagnosis (1) Rhabdomyolysis Is this a current diagnosis for this admission?: Yes Summary: Plan: 02/12/18: Serial measurement of patient's creatinine phosphokinase will be obtained to evaluate the extent and degree of her rhabdomyolysis. IV hydration will be maintained to allow for adequate renal clearance of myoglobin and other muscular injury related byproducts. 02/13/18: Patient's creatinine kinase fred to levels over 5000 overnight. The serum creatinine kinase appears to have peaked at approximately 5400 but ongoing measurements will be done to evaluate the status of her mild rhabdomyolysis. 02/14/18: Patient's creatinine kinase is now dropped to 2500 and will probably fall further by tomorrow. Patient states she is feeling quite well and plans for discharge tomorrow are being made. 02/15/18: Patient's creatinine kinase is now down to 1500s. She will be staying in the hospital another day and another creatinine kinase will be obtained with tomorrow morning's labs. (2) Weakness Is this a current diagnosis for this admission?: Yes Summary: 02/12/18: Patient will be rehydrated and her renal functions and electrolytes will be monitored. Thyroid function studies will be obtained. Physical therapy consultation will be obtained for evaluation and treatment. (3) Chronic diastolic CHF (congestive heart failure), NYHA class 2 Is this a current diagnosis for this admission?: Yes Summary: 02/15/18: Patient developed iatrogenic congestive heart failure due to aggressive rehydration in an attempt to reduce the patient's myoglobin load. She has responded well to a brief use of BiPAP as well as diuretic therapy. At the time of my evaluation today she continues to show some evidence of heart failure and therefore I will give her an additional dose of Bumex 2 mg IV x1 this afternoon and I will plan to reevaluate her tomorrow morning to determine if she can be discharged to home. Patient will probably need home health follow -up at the time of her discharge. Discharge planning will be informed. (4) Essential hypertension Is this a current diagnosis for this admission?: Yes Summary: Patient will be continued on her current antihypertensive regiment. 02/14/18: Patient's metoprolol succinate will be increased to 200 mg p.o. daily to better control her hypertension and control her heart rate as well as improve her congestive heart failure. (5) Bronchospasm, acute Is this a current diagnosis for this admission?: Yes Summary: 02/14/18: Patient's bronchospasm which developed last night was dramatically improved with nebulizer therapy utilizing Xopenex and Atrovent cord observation by family members and the stitch rubber. I will plan to discharge the patient to home with a Xopenex inhaler if she continues to demonstrate improvement after being treated with selective beta agonist agents. (6) Hyperlipidemia, mixed Is this a current diagnosis for this admission?: Yes Summary: Patient will be continued on her current statin therapy with Lipitor until the time of discharge and then she will be converted back to her usual Pravachol dosage. (7) Acute renal failure Is this a current diagnosis for this admission?: Yes Summary: 02/12/18: Patient will be hydrated with IV fluid and her renal functions and electrolytes will be evaluated on a regular basis throughout her hospital course. 02/13/18: Patient's renal functions returned to normal and therefore her acute renal failure has been resolved. (8) Dehydration Is this a current diagnosis for this admission?: Yes Summary: 02/12/18: Patient will be rehydrated with IV fluids and serial measurements of her renal functions electrolytes will be obtained to determine need for further hydration. 02/13/18: Patient appears to be rehydrated at the present time with normal skin turgor and laboratory functions showing a normal state of hydration. Her dehydration is therefore resolved. (9) Leukocytosis, unspecified Is this a current diagnosis for this admission?: Yes Summary: 02/12/18: Daily CBCs will be obtained to evaluate the patient's leukocytosis and determine the course of further investigation. 02/13/18: Patient's white blood count has decreased to 11,900 on this morning's evaluation. Serial evaluation will continue. 02/14/18: Patient's white count today is now 9000 and is in the normal range. This would signify that her leukocytosis has resolved. - Additional Information Resuscitation Status: Full Code Discharge Diet: Cardiac Discharge Activity: Activity As Tolerated, Walk Frequently Prescriptions: Metoprolol Succinate 200 mg PO DAILY 30 Days #30 tab.er.24h Home Medications: Amlodipine Besylate [Norvasc 5 mg Tablet] 5 mg PO DAILY 05/23/13 Aspirin [Aspirin 81 mg Chewable Tablet] 81 mg PO DAILY 05/23/13 Fenofibrate [Lofibra] 160 mg PO DAILY 05/23/13 Losartan Potassium [Cozaar 100 mg Tablet] 100 mg PO DAILY 05/23/13 Nitroglycerin [Nitroglycerin Patch] 0.2 patch TD DAILY 05/23/13 Pravastatin Sodium [Pravachol] 80 mg PO QHS 05/23/13 Vitamin D 50,000 units PO HERRERA@1000 09/01/13 Furosemide [Lasix 40 mg Tablet] 40 mg PO DAILY 02/12/18 Metoprolol Succinate 200 mg PO DAILY 30 Days #30 tab.er.24h 02/16/18 Metoprolol Succinate [Toprol XL 100 mg Tablet] 200 mg PO DAILY #0 02/16/18 History of Present Illness Patient complains of: Fall with inability to get herself up History of Present Illness: TANIYA JEAN BAPTISTE is a 87 year old female who presented to the emergency room with a history of a fall occurring on the night prior to arrival. She states that she fell sometime last night and was unable to get up. This morning she was found on the floor by her family when they came to check on her. She is uncertain of the length of time she spent on the floor if she is unsure of what time she fell. She denies loss of consciousness or striking her head at the time of her fall, but admits that she felt so weak that she could not get up after falling to the floor. She admits that she has been feeling weak for the last several days but is uncertain of the reason for her weakness. She denies fever, chills, nausea, vomiting, diarrhea, cough, chest pain, abdominal pain, sore throat, headache, rash, dysuria, hematuria, vertigo, dizziness and syncope. She complains of mild to moderate generalized achy muscular pain and adds that she did not have anything to drink all night because she was on the floor. She has not identified any aggravating or ameliorating factors for her falls, but admits several similar episodes in the past though she has generally been able to get up off the floor. In the emergency room she was found to have no evidence of fracture, dislocation or other acute skeletal injury. She was noted to have an elevated creatinine kinase at 2600 and a mildly elevated creatinine at 1.3. With these findings she was admitted to the hospital for evaluation and treatment of a mild rhabdomyolysis and acute renal injury. Hospital Course Hospital Course: 02/13/18: Taniya feels like she is doing somewhat better today and that she is eating very well and does not feel like she is as weak as she has been for the last several days prior to admission. She has no pain at the present time and feels a little more energetic today, although she relates that she is having some shortness of breath and feels like she might be wheezing. She has not had any chest pain or cough. On examination she was found to have some moderate expiratory wheezing without prolongation of her expiratory phase. No rales or rhonchi were noted. I discussed these findings with the patient and her family and we will continue with her IV fluid therapy and serial creatinine kinase measurements as it appears that these have peaked at a little over 5000 with a will be followed until they have fallen less than 50% of the maximum. Will initiate a pulmonary toilet and cover the patient with an antibiotic suitable for a community-acquired bronchitis or pneumonitis. She and her family were delighted to know that her acute renal injury had resolved. 02/14/18: Taniya continues to do quite well she is eating well and her weakness is been significantly reduced. She has been able to sit up for meals and has gotten up to go to the bathroom and back to bed with the help of physical therapy. She was evidently having some mild wheezing this morning but it has resolved since receiving a breathing treatment earlier today. She was delighted to hear that her creatinine kinase had fallen to 2500 and that she would be able to be discharged soon. We have discussed this at length and have determined that she should be ready for discharge tomorrow after having had an opportunity to get up and get a little more physical therapy here in the hospital. Plan would be to discharge patient with home health physical therapy and nursing. 02/15/18: Taniya developed some respiratory distress last night which appears to be due to iatrogenic fluid overload. Her IV fluids were discontinued, she was placed on BiPAP after she was found to have an elevated PCO2 with a respiratory acidosis and she was given 20 mg of Lasix x1. Her respirations have improved since that time but she continues to have some mild wheezing at times which may well reflect mild changes of interstitial pulmonary edema. Her creatinine kinase has dropped again to the 1500 level. She has been eating and drinking well while enjoying good pain control, but has been mildly confused on an intermittent basis as noted by her family. She continues to refuse to ambulate in the [place] with assistance, but will get up and ambulate back and forth to the bathroom with help. Her primary problem with confusion is that she tries to get up and walk on her own without assistance. I have agreed to try to get physical therapy to ambulate the patient in the [place] with assistance though her ambulatory distance tolerance is probably less than 200 feet this may show improvement with additional therapy. 02/16/18: Taniya had a good night overnight and feels much better today. She is alert talkative and quite bright today. She has been up walking in the [place] with physical therapy and has been able to ambulate for distances of 100-150 feet before tiring and returning to her room. She requires a wheeled walker and oxygen at 4 L/min per nasal cannula to enable her to ambulate. She points out that her edema is completely resolved and that her breathing is much better. She does not feel as though she is wheezing although her daughter thinks that she can still hear her wheeze. She has not experienced nausea or vomiting, chest pain or palpitations, fever and chills or dysuria and hematuria. She has had significantly less confusion today with only 1 or 2 minor episodes noted by her daughter. Because of her excellent progress and resolution of her rhabdomyolysis she was discharged home in improved and stable condition. She will have home health care with halfway and physical therapy. She will have home oxygen with oxygen gas tanks providing 4 L of oxygen per minute via nasal cannula while active and 2 L/min while at rest. She will follow-up with her primary care provider in 1-2 weeks or sooner as needed. Physical Exam Vital Signs: Temp Pulse Resp BP Pulse Ox 98.1 F 69 22 H 137/50 H 88 L 02/16/18 12:27 02/16/18 12:27 02/16/18 12:27 02/16/18 12:27 02/16/18 12:27 Intake & Output 02/15/18 02/15/18 02/16/18 00:59 23:59 23:59 Intake Total 384 Output Total Balance 384 Weight 73 kg General appearance: PRESENT: no acute distress, cooperative Head exam: PRESENT: atraumatic, normocephalic Ear exam: PRESENT: normal external ear exam Mouth exam: PRESENT: neck supple Neck exam: ABSENT: JVD, tracheal deviation Respiratory exam: PRESENT: clear to auscultation antonio, symmetrical, unlabored Cardiovascular exam: PRESENT: RRR. ABSENT: clicks, gallop, rubs Vascular exam: PRESENT: normal capillary refill. ABSENT: pallor GI/Abdominal exam: PRESENT: normal bowel sounds, soft Rectal exam: PRESENT: deferred Extremities exam: ABSENT: joint swelling, pedal edema Musculoskeletal exam: PRESENT: full ROM, normal inspection Neurological exam: PRESENT: alert, oriented to person, oriented to place, oriented to time, oriented to situation Psychiatric exam: PRESENT: appropriate affect, normal mood Skin exam: PRESENT: dry, warm. ABSENT: jaundice, rash, urticaria Results Laboratory Results: 02/16/18 08:56 02/16/18 08:56 02/16/18 02/16/18 08:56 08:56 WBC 10.0 RBC 3.91 Hgb 12.0 Hct 35.3 L MCV 90 MCH 30.7 MCHC 34.1 RDW 14.2 H Plt Count 274 Seg Neutrophils % 66.9 Lymphocytes % 23.9 Monocytes % 5.8 Eosinophils % 2.9 Basophils % 0.5 Absolute Neutrophils 6.7 Absolute Lymphocytes 2.4 Absolute Monocytes 0.6 Absolute Eosinophils 0.3 Absolute Basophils 0.1 Sodium 142.7 Potassium 3.9 Chloride 105 Carbon Dioxide 30 Anion Gap 8 BUN 23 H Creatinine 0.94 Est GFR ( Amer) > 60 Est GFR (Non-Af Amer) 56 L Glucose 175 H Calcium 9.5 02/12/18 02/12/18 02/12/18 16:55 16:55 18:10 Creatine Kinase 4226 H CK-MB (CK-2) 32.30 H Troponin I 0.069 0.076 NT-Pro-B Natriuret Pep 02/12/18 02/12/18 02/13/18 22:35 22:35 04:38 Creatine Kinase 5306 H 5047 H CK-MB (CK-2) 35.10 H Troponin I 0.068 NT-Pro-B Natriuret Pep 02/13/18 02/14/18 02/15/18 04:38 04:49 05:07 Creatine Kinase 2539 H 1575 H CK-MB (CK-2) 30.00 H Troponin I 0.066 NT-Pro-B Natriuret Pep 2470 H 02/16/18 08:56 Creatine Kinase 1080 H CK-MB (CK-2) Troponin I NT-Pro-B Natriuret Pep Impressions: Chest X-Ray 02/15/18 00:00 IMPRESSION: Increasing volume loss in the lung bases which may be due to developing pleural fluid and atelectasis. An underlying infectious or inflammatory infiltrate are not excluded. Developing pulmonary edema is also a consideration. Qualifiers - * PATIENT BEING DISCHARGED WITH ANY OF THE FOLLOWING DIAGNOSIS: Heart Failure HF Pt being discharged on ACEI for LVEF less than 40%?: No Reason(s) for not prescribing ACEI:: Contraindicated - Patient had acute renal failure and does not have EF less than 40% HF Pt being discharged on ARBS for LVEF less than 40%?: Yes HF Pt with Afib discharged with Warfarin?: No Reason(s) for not prescribing Warfarin:: Contraindicated - Patient does not have atrial fibrillation HF Pt discharged on evidence-based Beta Angel:: Yes Plan Discharge Plan: Discharged home with home health using halfway and physical therapy in improved and stable condition Time Spent: Greater than 30 Minutes
[2018-02-16] MEDS ORDERED: ONDANSETRON 4 MG TAB.RAPDIS PO PRN (15:00)
[2018-02-16 16:27] VITALS: BP 155/54
[2018-02-17] MEDS ORDERED: ASPIRIN 81 MG TABLET, CHEWABLE PO SCH (10:00)
== END 2018-02-16 16:45 | disposition home health service (06) | DRG 565 ==
LOC: ER 13:37 → EH 16:26 → 4N 19:56
PROVIDERS: ADMIT Emergency Medicine; ATTEND Emergency Medicine
PROC: 3E0F73Z Introduction of Anti-inflammatory into Respiratory Tract, Via Natural or Artificial Opening (ICD-10-PCS; 2018-02-13)
PROC: 5A09357 Assistance with Respiratory Ventilation, Less than 24 Consecutive Hours, Continuous Positive Airway Pressure (ICD-10-PCS; principal; 2018-02-15)
DX: T79.6XXA Traumatic ischemia of muscle, initial encounter (principal); N17.9 Acute kidney failure, unspecified; I50.32 Chronic diastolic (congestive) heart failure; W18.30XA Fall on same level, unspecified, initial encounter; I11.0 Hypertensive heart disease with heart failure; J98.01 Acute bronchospasm; E78.2 Mixed hyperlipidemia; E86.0 Dehydration; M16.0 Bilateral primary osteoarthritis of hip; Z60.2 Problems related to living alone; Z79.899 Other long term (current) drug therapy; Z91.81 History of falling; Z85.528 Personal history of other malignant neoplasm of kidney; Z85.42 Personal history of malignant neoplasm of other parts of uterus; Z90.710 Acquired absence of both cervix and uterus; Z79.82 Long term (current) use of aspirin; Z87.891 Personal history of nicotine dependence; Z82.49 Family history of ischemic heart disease and other diseases of the circulatory system
CPT/HCPCS: 36415; 36600; 71045; 80048; 80053; 80061; 81001; 82550; 82553; 82803; 83735; 83880; 84443; 84484; 85025; 93005; 93010; 94640; 94660; 96360; 99285; G8978-GP; G8979-GP; G8987-GO; G8988-GO; J1650; J1940; J2920; J3490; J7030; J7040

== ENCOUNTER 2018-02-19 14:13 | Inpatient (IN) | payer MEDICARE, MEDICAID ==
[2018-02-19 16:11] LABS: ARTERIAL BLOOD BASE EXCESS 9.1 mmol/L; ARTERIAL BLOOD FIO2 4L; ARTERIAL BLOOD H2CO3 2.18 mmol/L (1.05-1.35); ARTERIAL BLOOD HCO3 37.4 mmol/L (20-24); ARTERIAL BLOOD O2 SATURATION 92.3 % (94-98); ARTERIAL BLOOD PH 7.33 (7.35-7.45); ARTERIAL BLOOD PO2 70.4 mmHg (80-100); ARTERIAL BLOOD TOTAL CO2 39.7 mmol/L (21-25)
[2018-02-19 16:12] LABS: ARTERIAL BLOOD PCO2 72.3 mmHg (35-45)
[2018-02-19 16:45] LABS: ABSOLUTE EOSINOPHILS # (AUTO) 0.3 10^3/uL (0.0-0.6); ABSOLUTE LYMPHOCYTES (AUTO) 1.8 10^3/uL (0.5-4.7); ABSOLUTE MONOCYTES (AUTO) 0.7 10^3/uL (0.1-1.4); ABSOLUTE NEUT (AUTO) 6.7 10^3/uL (1.7-8.2); BASOPHILS % (AUTO) 0.3 % (0-2); EOSINOPHILS % (AUTO) 2.8 % (0-6); HEMOGLOBIN 11.9 g/dL (12.0-15.5); LYMPHOCYTES % (AUTO) 19.2 % (13-45); MEAN CORPUSCULAR HEMOGLOBIN 30.9 pg (27.0-33.4); MEAN CORPUSCULAR HGB CONC 34.1 g/dL (32.0-36.0); MEAN CORPUSCULAR VOLUME 91 fl (80-97); MONOCYTES % (AUTO) 7.8 % (3-13); PLATELET COUNT 370 10^3/uL (150-450); RED BLOOD COUNT 3.86 10^6/uL (3.72-5.28); RED CELL DISTRIBUTION WIDTH 14.1 % (11.5-14.0); SEGMENTED NEUTROPHILS % (AUTO) 69.9 % (42-78); TOTAL CELLS COUNTED % (AUTO) 100 %; WHITE BLOOD COUNT 9.6 10^3/uL (4.0-10.5)
--- NOTE | 2018-02-19 17:01 | PDOC H&P ---
History of Present Illness Admission Date/PCP: 02/19/18 14:13 KARTIK BECKER MD Patient complains of: Shortness of breath and leg swelling History of Present Illness: TANIYA JEAN BAPTISTE is a 87 year old female Past Medical History Cardiac Medical History: Reports: Congestive Heart Failure - Chronic diastolic CHF [place] [employer] class 2, Hyperlipidema, Hypertension - 2004 meds started Denies: Coronary Artery Disease, Myocardial Infarction Pulmonary Medical History: Reports: Pneumonia - 2013 Denies: Asthma, Bronchitis, Chronic Obstructive Pulmonary Disease (COPD), Tuberculosis Neurological Medical History: Denies: Migraine, Seizures Endocrine Medical History: Denies: Diabetes Mellitus Type 1, Diabetes Mellitus Type 2, Hyperthyroidism, Hypothyroidism Renal/ Medical History: Reports: Chronic Kidney Disease Malignancy Medical History: Reports: Renal (Kidney) Cancer - She underwent a tumor debulking procedure of some nature GI Medical History: Denies: Cirrhosis, Crohn's Disease, Hepatitis, Ulcerative Colitis Musculoskeltal Medical History: Reports: Arthritis - hips Denies: Fibromyalgia Skin Medical History: Denies: Eczema, Psoriasis Psychiatric Medical History: Denies: Depression Hematology: Denies: Anemia, Bleeding Tendencies Past Surgical History Past Surgical History: Reports: Hysterectomy, Orthopedic Surgery - left knee surgery, Other - Kidney cancer surgery Denies: Pacemaker Social History Smoking Status: Never Smoker Frequency of Alcohol Use: Occasional Hx Recreational Drug Use: No Drugs: None Hx Prescription Drug Abuse: No - Advance Directive Resuscitation Status: Do Not Resuscitate Family History Family History: Hypertension, Other - Heart disease Parental Family History Reviewed: Yes Children Family History Reviewed: Yes Sibling(s) Family History Reviewed.: Yes Medication/Allergy Home Medications: Amlodipine Besylate [Norvasc 5 mg Tablet] 5 mg PO DAILY 02/19/18 Aspirin [Aspirin 81 mg Chewable Tablet] 81 mg PO DAILY 02/19/18 Ergocalciferol (Vitamin D2) [Drisdol 50,000 unit (1.25MG) Capsule] 50,000 unit PO HERRERA 02/19/18 Fenofibrate 160 mg PO DAILY 02/19/18 Furosemide [Lasix 40 mg Tablet] 40 mg PO DAILY 02/19/18 Losartan Potassium [Cozaar 100 mg Tablet] 100 mg PO DAILY 02/19/18 Metoprolol Succinate [Toprol Xl] 200 mg PO DAILY 02/19/18 Nitroglycerin [Nitro-Dur 5 mg (0.2 mg/Hr) Transdermal Patch] 0.2 mg TD DAILY Pravastatin Sodium [Pravachol] 80 mg PO QHS 02/19/18 Allergies/Adverse Reactions: No Known Allergies Allergy (Verified 02/12/18 14:36) Review of Systems All systems: as per H Physical Exam Vital Signs: Temp Pulse Resp BP Pulse Ox 98.7 F 62 18 146/56 H 96 02/19/18 15:41 02/19/18 15:41 02/19/18 15:41 02/19/18 15:41 02/19/18 15:41 Intake & Output 02/18/18 02/19/18 02/20/18 06:59 06:59 06:59 Weight 70.1 kg General appearance: PRESENT: severe distress Head exam: PRESENT: atraumatic Eye exam: PRESENT: conjunctival injection Neck exam: PRESENT: carotid bruit. ABSENT: JVD Respiratory exam: PRESENT: rales, tachypnea Cardiovascular exam: PRESENT: RRR, +S1, +S2 GI/Abdominal exam: PRESENT: normal bowel sounds, soft Extremities exam: PRESENT: pedal edema Musculoskeletal exam: PRESENT: tenderness Neurological exam: PRESENT: alert, awake Results Laboratory Results: 02/19/18 16:13 02/19/18 02/19/18 15:55 16:13 WBC 9.6 RBC 3.86 Hgb 11.9 L Hct 35.0 L MCV 91 MCH 30.9 MCHC 34.1 RDW 14.1 H Plt Count 370 Seg Neutrophils % 69.9 Lymphocytes % 19.2 Monocytes % 7.8 Eosinophils % 2.8 Basophils % 0.3 Absolute Neutrophils 6.7 Absolute Lymphocytes 1.8 Absolute Monocytes 0.7 Absolute Eosinophils 0.3 Absolute Basophils 0.0 Carbonic Acid 2.18 H HCO3/H2CO3 Ratio 17:1 ABG pH 7.33 L ABG pCO2 72.3 H* ABG pO2 70.4 L ABG HCO3 37.4 H ABG O2 Saturation 92.3 L ABG Base Excess 9.1 FiO2 4L Assessment & Plan - Diagnosis (1) Acute on chronic systolic heart failure Is this a current diagnosis for this admission?: Yes Plan: We will obtain labs and start diureses (2) CO2 retention Is this a current diagnosis for this admission?: Yes Plan: We will place on BiPAP 03/19 (3) Essential hypertension Is this a current diagnosis for this admission?: Yes Plan: Adjust blood pressure medications (4) DNR (do not resuscitate) Is this a current diagnosis for this admission?: Yes Plan: We will continue with DNR as per patient's wishes (5) Acute respiratory failure Is this a current diagnosis for this admission?: Yes Plan: Probably a combination of congestive heart failure and CO2 retention. We will start diuretics and BiPAP
[2018-02-19 17:02] LABS: ALANINE AMINOTRANSFERASE 50 U/L (9-52); ALBUMIN 3.4 g/dL (3.5-5.0); ALKALINE PHOSPHATASE 53 U/L (38-126); ANION GAP 12 (5-19); ASPARTATE AMINO TRANSFERASE 41 U/L (14-36); BILIRUBIN,DIRECT 0.2 mg/dL (0.0-0.4); BILIRUBIN,TOTAL 0.4 mg/dL (0.2-1.3); BLOOD UREA NITROGEN 21 mg/dL (7-20); CALCIUM 9.9 mg/dL (8.4-10.2); CARBON DIOXIDE 35 mmol/L (22-30); CHLORIDE 96 mmol/L (98-107); CREATINE KINASE 176 U/L (30-135); GLUCOSE 106 mg/dL (75-110); POTASSIUM 4.3 mmol/L (3.6-5.0); SODIUM 142.5 mmol/L (137-145); TOTAL PROTEIN 5.8 g/dL (6.3-8.2)
[2018-02-19 17:16] LABS: CREATINE KINASE MB 1.87 ng/mL (<4.55)
[2018-02-19 17:17] LABS: TROPONIN I < 0.012 ng/mL
--- NOTE | 2018-02-19 17:24 | RADIOLOGY REPORT (SQ) ---
EXAM DESCRIPTION: CHEST SINGLE VIEW COMPLETED DATE/TIME: 02/19/2018 5:15 pm REASON FOR STUDY: chf COMPARISON: 02/15/2018 EXAM PARAMETERS: NUMBER OF VIEWS: One view. TECHNIQUE: Single frontal radiographic view of the chest acquired. RADIATION DOSE: NA LIMITATIONS: None. FINDINGS: LUNGS AND PLEURA: Small bilateral pleural effusions. Ill-defined opacification in both jo ng bases. MEDIASTINUM AND HILAR STRUCTURES: No masses. Contour normal. HEART AND VASCULAR STRUCTURES: Heart size is borderline. No pulmonary edema. BONES: No acute findings. HARDWARE: None in the chest. OTHER: No other significant finding. IMPRESSION: Small pleural effusions. Cannot exclude mild airspace disease in either lung base. Bor derline heart size. No bal pulmonary edema. TECHNICAL DOCUMENTATION: JOB ID: [id number] [employer]- All Rights Reserved Reading location - IP/workstation name: [email or web address]
--- NOTE | 2018-02-19 18:11 | EKG REPORT ---
SEVERITY:- ABNORMAL ECG - SINUS RHYTHM VENTRICULAR PREMATURE COMPLEX CONSIDER ANTEROSEPTAL INFARCT : Confirmed by: Grant Givens MD 19-Feb-2018 18:10:41
[2018-02-19] MEDS ORDERED: IPRATROPIUM/ALBUTEROL 0.5-2.5 MG/3 ML AMPUL NEB PRN (18:12)
[2018-02-19] MEDS ORDERED: FUROSEMIDE INJ/PF 40 MG/4 ML SDV IV ONE (18:45)
[2018-02-19] MEDS ORDERED: HYDRALAZINE HCL INJ/PF 20 MG/1 ML SDV ONE (19:49)
[2018-02-19] MEDS ORDERED: TRAZODONE HCL 50 MG TABLET PO ONE (20:30)
[2018-02-19] MEDS ORDERED: FUROSEMIDE INJ/PF 40 MG/4 ML SDV IV SCH (22:00)
[2018-02-19 22:43] LABS: CREATINE KINASE MB 1.36 ng/mL (<4.55)
[2018-02-19 22:44] LABS: TROPONIN I < 0.012 ng/mL
[2018-02-20] MEDS: LOSARTAN POTASSIUM 50 MG TABLET PO SCH ×2 (04:37→11:50)
[2018-02-20] MEDS: METOPROLOL SUCCINATE 50 MG TAB.SR.24H PO SCH ×2 (04:38→11:51)
[2018-02-20 04:45] LABS: ABSOLUTE EOSINOPHILS # (AUTO) 0.2 10^3/uL (0.0-0.6); ABSOLUTE LYMPHOCYTES (AUTO) 1.8 10^3/uL (0.5-4.7); ABSOLUTE MONOCYTES (AUTO) 0.8 10^3/uL (0.1-1.4); ABSOLUTE NEUT (AUTO) 5.3 10^3/uL (1.7-8.2); BASOPHILS % (AUTO) 0.4 % (0-2); EOSINOPHILS % (AUTO) 2.5 % (0-6); HEMATOCRIT 32.7 % (36.0-47.0); HEMOGLOBIN 11.1 g/dL (12.0-15.5); LYMPHOCYTES % (AUTO) 22.2 % (13-45); MEAN CORPUSCULAR HEMOGLOBIN 30.5 pg (27.0-33.4); MEAN CORPUSCULAR HGB CONC 33.8 g/dL (32.0-36.0); MEAN CORPUSCULAR VOLUME 90 fl (80-97); MONOCYTES % (AUTO) 9.9 % (3-13); PLATELET COUNT 347 10^3/uL (150-450); RED BLOOD COUNT 3.64 10^6/uL (3.72-5.28); TOTAL CELLS COUNTED % (AUTO) 100 %; WHITE BLOOD COUNT 8.2 10^3/uL (4.0-10.5)
[2018-02-20 05:02] LABS: ANION GAP 8 (5-19); BLOOD UREA NITROGEN 25 mg/dL (7-20); CALCIUM 9.8 mg/dL (8.4-10.2); CARBON DIOXIDE 39 mmol/L (22-30); CHLORIDE 95 mmol/L (98-107); CREATINE KINASE 98 U/L (30-135); GLUCOSE 102 mg/dL (75-110); POTASSIUM 3.8 mmol/L (3.6-5.0); SODIUM 142.3 mmol/L (137-145)
[2018-02-20 06:35] LABS: CREATINE KINASE MB 1.11 ng/mL (<4.55); TROPONIN I < 0.012 ng/mL
--- NOTE | 2018-02-20 09:58 | PDOC PROGRESS REPORT ---
Subjective Progress Note for:: 02/20/18 Subjective:: The patient appears to be slightly lethargic. She is on the BiPAP. She had a sundowning last night and needed to be treated with trazodone. She had a good urine output. Reason For Visit: HEART FAILURE,CHRONIC KIDNEY DISEASE,HYPERTENSION Physical Exam Vital Signs: Temp Pulse Resp BP Pulse Ox 97.6 F 59 L 16 131/45 H 97 02/20/18 07:48 02/20/18 07:48 02/20/18 07:48 02/20/18 07:48 02/20/18 07:48 Intake & Output 02/19/18 02/20/18 02/21/18 06:59 06:59 06:59 Intake Total 0 Balance 0 Weight 70.5 kg General appearance: PRESENT: mild distress Head exam: PRESENT: atraumatic Eye exam: PRESENT: conjunctiva pink Neck exam: PRESENT: carotid bruit. ABSENT: JVD Respiratory exam: PRESENT: crackles Cardiovascular exam: PRESENT: RRR, +S1, +S2 GI/Abdominal exam: PRESENT: normal bowel sounds, soft Extremities exam: PRESENT: pedal edema Musculoskeletal exam: PRESENT: tenderness. ABSENT: ambulatory Neurological exam: PRESENT: alert, awake Results Laboratory Results: 02/20/18 03:57 02/20/18 03:57 02/19/18 02/19/18 02/19/18 15:55 16:13 16:13 WBC 9.6 RBC 3.86 Hgb 11.9 L Hct 35.0 L MCV 91 MCH 30.9 MCHC 34.1 RDW 14.1 H Plt Count 370 Seg Neutrophils % 69.9 Lymphocytes % 19.2 Monocytes % 7.8 Eosinophils % 2.8 Basophils % 0.3 Absolute Neutrophils 6.7 Absolute Lymphocytes 1.8 Absolute Monocytes 0.7 Absolute Eosinophils 0.3 Absolute Basophils 0.0 Carbonic Acid 2.18 H HCO3/H2CO3 Ratio 17:1 ABG pH 7.33 L ABG pCO2 72.3 H* ABG pO2 70.4 L ABG HCO3 37.4 H ABG O2 Saturation 92.3 L ABG Base Excess 9.1 FiO2 4L Sodium 142.5 Potassium 4.3 Chloride 96 L Carbon Dioxide 35 H Anion Gap 12 BUN 21 H Creatinine 0.75 Est GFR ( Amer) > 60 Est GFR (Non-Af Amer) > 60 Glucose 106 Calcium 9.9 Magnesium 1.7 Total Bilirubin 0.4 AST 41 H ALT 50 Alkaline Phosphatase 53 Total Protein 5.8 L Albumin 3.4 L TSH 02/20/18 02/20/18 02/20/18 03:57 03:57 03:57 WBC 8.2 RBC 3.64 L Hgb 11.1 L Hct 32.7 L MCV 90 MCH 30.5 MCHC 33.8 RDW 14.0 Plt Count 347 Seg Neutrophils % 65.0 Lymphocytes % 22.2 Monocytes % 9.9 Eosinophils % 2.5 Basophils % 0.4 Absolute Neutrophils 5.3 Absolute Lymphocytes 1.8 Absolute Monocytes 0.8 Absolute Eosinophils 0.2 Absolute Basophils 0.0 Carbonic Acid HCO3/H2CO3 Ratio ABG pH ABG pCO2 ABG pO2 ABG HCO3 ABG O2 Saturation ABG Base Excess FiO2 Sodium 142.3 Potassium 3.8 Chloride 95 L Carbon Dioxide 39 H Anion Gap 8 BUN 25 H Creatinine 0.86 Est GFR ( Amer) > 60 Est GFR (Non-Af Amer) > 60 Glucose 102 Calcium 9.8 Magnesium Total Bilirubin AST ALT Alkaline Phosphatase Total Protein Albumin TSH 0.54 02/19/18 02/19/18 02/19/18 16:13 16:13 16:13 Creatine Kinase 176 H CK-MB (CK-2) 1.87 Troponin I < 0.012 NT-Pro-B Natriuret Pep 3740 H 02/19/18 02/19/18 02/20/18 22:10 22:10 03:57 Creatine Kinase 124 98 CK-MB (CK-2) 1.36 Troponin I < 0.012 NT-Pro-B Natriuret Pep 02/20/18 03:57 Creatine Kinase CK-MB (CK-2) 1.11 Troponin I < 0.012 NT-Pro-B Natriuret Pep Impressions: Chest X-Ray 02/19/18 16:52 IMPRESSION: Small pleural effusions. Cannot exclude mild airspace disease in either lung base. Borderline heart size. No bal pulmonary edema. Assessment & Plan - Diagnosis (1) Acute on chronic systolic heart failure Is this a current diagnosis for this admission?: Yes Plan: Continue current treatment (2) CO2 retention Is this a current diagnosis for this admission?: Yes Plan: Continue BiPAP. Will recheck ABG in the morning (3) Essential hypertension Is this a current diagnosis for this admission?: Yes Plan: Adjust blood pressure medications (4) DNR (do not resuscitate) Is this a current diagnosis for this admission?: Yes Plan: We will continue with DNR as per patient's wishes (5) Acute respiratory failure Is this a current diagnosis for this admission?: Yes Plan: Probably a combination of congestive heart failure and CO2 retention. We will start diuretics and BiPAP
[2018-02-20] MEDS: ASPIRIN 81 MG TABLET, CHEWABLE PO SCH (11:51)
[2018-02-20] MEDS: NITROGLYCERIN 5 MG (0.2 MG/HR) PATCH.TD24 TD SCH (11:51)
[2018-02-20] MEDS: FUROSEMIDE 40 MG TABLET PO SCH ×2 (11:51→17:30)
[2018-02-20] MEDS: ENOXAPARIN SODIUM INJ 30 MG/0.3 ML DISP.SYRIN SUBCUT SCH (11:53)
[2018-02-20] MEDS: QUETIAPINE FUMARATE 25 MG TABLET PO SCH (21:15)
[2018-02-21 04:50] LABS: ABSOLUTE EOSINOPHILS # (AUTO) 0.2 10^3/uL (0.0-0.6); ABSOLUTE LYMPHOCYTES (AUTO) 1.9 10^3/uL (0.5-4.7); ABSOLUTE MONOCYTES (AUTO) 0.7 10^3/uL (0.1-1.4); ABSOLUTE NEUT (AUTO) 4.5 10^3/uL (1.7-8.2); BASOPHILS % (AUTO) 0.3 % (0-2); EOSINOPHILS % (AUTO) 2.4 % (0-6); HEMATOCRIT 34.4 % (36.0-47.0); HEMOGLOBIN 11.8 g/dL (12.0-15.5); LYMPHOCYTES % (AUTO) 26.4 % (13-45); MEAN CORPUSCULAR HEMOGLOBIN 30.6 pg (27.0-33.4); MEAN CORPUSCULAR HGB CONC 34.2 g/dL (32.0-36.0); MEAN CORPUSCULAR VOLUME 89 fl (80-97); MONOCYTES % (AUTO) 9.1 % (3-13); PLATELET COUNT 335 10^3/uL (150-450); RED BLOOD COUNT 3.85 10^6/uL (3.72-5.28); RED CELL DISTRIBUTION WIDTH 13.8 % (11.5-14.0); SEGMENTED NEUTROPHILS % (AUTO) 61.8 % (42-78); TOTAL CELLS COUNTED % (AUTO) 100 %; WHITE BLOOD COUNT 7.2 10^3/uL (4.0-10.5)
[2018-02-21 05:16] LABS: ANION GAP 11 (5-19); BLOOD UREA NITROGEN 29 mg/dL (7-20); CALCIUM 9.7 mg/dL (8.4-10.2); CARBON DIOXIDE 37 mmol/L (22-30); CHLORIDE 95 mmol/L (98-107); GLUCOSE 83 mg/dL (75-110); POTASSIUM 3.7 mmol/L (3.6-5.0); SODIUM 142.8 mmol/L (137-145)
[2018-02-21] MEDS: FUROSEMIDE 40 MG TABLET PO SCH ×2 (09:38→18:12)
[2018-02-21] MEDS: METOPROLOL SUCCINATE 50 MG TAB.SR.24H PO SCH (09:38)
[2018-02-21] MEDS: ASPIRIN 81 MG TABLET, CHEWABLE PO SCH (09:39)
[2018-02-21] MEDS: NITROGLYCERIN 5 MG (0.2 MG/HR) PATCH.TD24 TD SCH (09:39)
[2018-02-21] MEDS: LOSARTAN POTASSIUM 50 MG TABLET PO SCH (09:39)
[2018-02-21] MEDS: ENOXAPARIN SODIUM INJ 30 MG/0.3 ML DISP.SYRIN SUBCUT SCH (09:40)
--- NOTE | 2018-02-21 09:48 | RADIOLOGY REPORT (SQ) ---
EXAM DESCRIPTION: CHEST SINGLE VIEW COMPLETED DATE/TIME: 02/21/2018 9:37 am REASON FOR STUDY: reassess pleural eff COMPARISON: 02/19/2018. 02/15/2018. FINDINGS: Single-view chest AP portable upright. Slightly improved but persistently diminished bibasilar aeration. Streaky linear subsegmental atelec tasis right mid lung zone. No pneumothorax. No developing failure. Stable cardiomediastinal silhouette. IMPRESSION: Slightly improved. TECHNICAL DOCUMENTATION: JOB ID: [id number] Reading location - IP/workstation name: [email or web address]
--- NOTE | 2018-02-21 10:58 | PDOC PROGRESS REPORT ---
Subjective Progress Note for:: 02/21/18 Subjective:: Assumed care today. Ms. Vail is an 87 yr old female with a PMH of diastolic heart failure, possible early dementia, COPD per daughter, hypertension, history of renal cell carcinoma with prior debulking surgery and hyperlipidemia who initially presented with increasing SOB and worsening pedal edema and was admitted for CHF exacerbation. She was recently admitted and discharged after sustaining rhabdomyolysis from a fall as well as fluid overload. No acute event overnight. Patient was complaint with BIPAP overnight. Upon encounter this morning, she is comfortable eating breakfast on nasal cannula. She says her breathing has improved today. Her pedal edema has also improved. Reason For Visit: HEART FAILURE,CHRONIC KIDNEY DISEASE,HYPERTENSION Physical Exam Vital Signs: Temp Pulse Resp BP Pulse Ox 97.7 F 59 L 15 150/53 H 95 02/21/18 07:30 02/21/18 07:53 02/21/18 07:53 02/21/18 07:30 02/21/18 07:53 Intake & Output 02/20/18 02/21/18 02/22/18 06:59 06:59 06:59 Intake Total 0 Balance 0 Weight 155 lb 6.814 oz 154 lb 8.705 oz General appearance: PRESENT: no acute distress, well-developed, well-nourished Head exam: PRESENT: atraumatic, normocephalic Eye exam: PRESENT: conjunctiva pink, EOMI, PERRLA. ABSENT: scleral icterus Ear exam: PRESENT: normal external ear exam Mouth exam: PRESENT: moist, tongue midline Neck exam: ABSENT: carotid bruit, JVD, lymphadenopathy, thyromegaly Respiratory exam: PRESENT: decreased breath sounds - slightly decreased breath sounds on the right base. ABSENT: rales, rhonchi, wheezes GI/Abdominal exam: PRESENT: normal bowel sounds, soft. ABSENT: distended, guarding, mass, organolmegaly, rebound, tenderness Rectal exam: PRESENT: deferred Extremities exam: PRESENT: +1 edema Neurological exam: PRESENT: alert, awake, oriented to person, oriented to place Results Laboratory Results: 02/21/18 04:30 02/21/18 04:30 02/21/18 02/21/18 04:30 04:30 WBC 7.2 RBC 3.85 Hgb 11.8 L Hct 34.4 L MCV 89 MCH 30.6 MCHC 34.2 RDW 13.8 Plt Count 335 Seg Neutrophils % 61.8 Lymphocytes % 26.4 Monocytes % 9.1 Eosinophils % 2.4 Basophils % 0.3 Absolute Neutrophils 4.5 Absolute Lymphocytes 1.9 Absolute Monocytes 0.7 Absolute Eosinophils 0.2 Absolute Basophils 0.0 Sodium 142.8 Potassium 3.7 Chloride 95 L Carbon Dioxide 37 H Anion Gap 11 BUN 29 H Creatinine 0.86 Est GFR ( Amer) > 60 Est GFR (Non-Af Amer) > 60 Glucose 83 Calcium 9.7 02/19/18 02/19/18 02/19/18 16:13 16:13 16:13 Creatine Kinase 176 H CK-MB (CK-2) 1.87 Troponin I < 0.012 NT-Pro-B Natriuret Pep 3740 H 02/19/18 02/19/18 02/20/18 22:10 22:10 03:57 Creatine Kinase 124 98 CK-MB (CK-2) 1.36 Troponin I < 0.012 NT-Pro-B Natriuret Pep 02/20/18 03:57 Creatine Kinase CK-MB (CK-2) 1.11 Troponin I < 0.012 NT-Pro-B Natriuret Pep Impressions: Chest X-Ray 02/21/18 09:00 IMPRESSION: Slightly improved. Assessment & Plan - Diagnosis (1) Acute on chronic diastolic (congestive) heart failure Is this a current diagnosis for this admission?: Yes Plan: Improving. Continue lasix 40 mg bid. Last echo in 2013 showed normal EF with grade 1 diastolic dysfunction. Will recheck another echo due to recurrent CHF admissions to re-evaluate systolic function. Continue I&Os. (2) Acute respiratory failure with hypercapnia Is this a current diagnosis for this admission?: Yes Plan: Initial ABG showed a PCO2 of 72. She has been compliant with BIPAP. She reportedly present with lethargy as well. She is fully awake and alert and is saturating well on nasal cannula. Repeat ABG shows slightly improved PCO2 at 64. ABG is consistent with chronic hypercapnia with elevated HCO3. Daughter says that patient does have COPD and possible SHAHIDA as she has occasional pauses at sleep and feels tired during the day. Continue BIPAP 2 hrs on/2 hrs off. Recommend outpatient sleep study. (3) Essential hypertension Is this a current diagnosis for this admission?: Yes Plan: Blood pressures running in the 150/70s. Continue losartan and metoprolol. (4) Acute delirium Is this a current diagnosis for this admission?: Yes Plan: No recurrence of agitation overnight. She was started on seroquel for this episode the other night. Will consult PT for re-evaluation due to patient's recent fall at home, questionable unsteady gait and possible early dementia per daughter. Consult case management for possible rehab placement. - Time Time Spent with patient: 15-24 minutes
[2018-02-21 11:10] LABS: ARTERIAL BLOOD BASE EXCESS 15.3 mmol/L; ARTERIAL BLOOD H2CO3 1.94 mmol/L (1.05-1.35); ARTERIAL BLOOD HCO3 42.4 mmol/L (20-24); ARTERIAL BLOOD O2 SATURATION 95.1 % (94-98); ARTERIAL BLOOD PCO2 64.5 mmHg (35-45); ARTERIAL BLOOD PH 7.44 (7.35-7.45); ARTERIAL BLOOD PO2 75.8 mmHg (80-100); ARTERIAL BLOOD TOTAL CO2 44.4 mmol/L (21-25)
[2018-02-21 11:15] LABS: ARTERIAL BLOOD FIO2 3L
--- NOTE | 2018-02-21 18:44 | XCELERA REPORT ---
[address] [address] Transthoracic Echocardiogram Report Name: TANIYA JEAN BAPTISTE Age: 87 yrs Gender: Female : 1930 Patient Status: Inpatient Patient Location: [address] [place] [address] Study Date: 02/21/2018 12:54 PM Height: 63 in Weight: 154 lb BSA: 1.7 m2 Procedure: A complete two-dimensional transthoracic echocardiogram was performed (2D, M-mode, spectral and color flow Doppler). The study was technically difficult with many images being suboptimal in quality. Reason For Study: CHF exacerbation Ordering Physician: DEMETRI ONEIL Performed By: Navi Whelan Interpretation Summary The left ventricular ejection fraction is normal. There is mild concentric left ventricular hypertrophy. The left ventricle is grossly normal size. Doppler measurements suggest pseudonormalized left ventricular relaxation, which is associated with grade II/IV or mild to moderate diastolic dysfunction Wall motion cannot be accurately commented on, but no definite regional wall motion abnormalities noted. The right ventricular systolic function is normal. The right ventricle is grossly normal size. The left atrial size is normal. The right atrium is normal in size There is a trace amount of mitral regurgitation There is no mitral valve stenosis. No aortic regurgitation is present. There is no aortic valve stenosis There is a trace or physiologic amount of tricuspid regurgitation There is no tricuspid stenosis. The aortic root is not well visualized but is probably normal size. The inferior vena cava was not well visualized There is no pericardial effusion. MMode/2D Measurements & Calculations RVDd: 2.7 cm LVIDd: 3.8 cm FS: 33.3 % Ao root diam: 2.7 cm IVSd: 1.3 cm LVIDs: 2.5 cm EDV(Teich): 61.0 ml Ao root area: 5.9 cm2 LVPWd: 1.4 cm ESV(Teich): 22.7 ml LA dimension: 3.1 cm EF(Teich): 62.8 % LVOT diam: 1.7 cm LVOT area: 2.2 cm2 Doppler Measurements & Calculations MV E max nimesh: MV P1/2t max nimesh: Ao V2 max: LV V1 max P.5 cm/sec 109.9 cm/sec 141.2 cm/sec 6.2 mmHg MV A max nimesh: MV P1/2t: 65.6 msec Ao max PG: LV V1 max: 104.1 cm/sec MVA(P1/2t): 3.4 cm2 8.0 mmHg 124.8 cm/sec MV E/A: 0.72 MV dec slope: FRANKY(V,D): 1.9 cm2 491.2 cm/sec2 MV dec time: 0.24 sec PA V2 max: MV P1/2t-pr_phl: 133.0 cm/sec 65.6 msec PA max P.1 mmHg Left Ventricle The left ventricle is grossly normal size. There is mild concentric left ventricular hypertrophy. The left ventricular ejection fraction is normal. Doppler measurements suggest pseudonormalized left ventricular relaxation, which is associated with grade II/IV or mild to moderate diastolic dysfunction. Wall motion cannot be accurately commented on, but no definite regional wall motion abnormalities noted. Right Ventricle The right ventricle is grossly normal size. There is normal right ventricular wall thickness. The right ventricular systolic function is normal. Atria The right atrium is normal in size. The left atrial size is normal. Interarterial septum not well visualized and not well dopplered. Cannot comment on ASD/PFO presence. Mitral Valve The mitral valve is grossly normal. There is no mitral valve stenosis. There is a trace amount of mitral regurgitation. Aortic Valve The aortic valve is grossly normal. There is no aortic valve stenosis. No aortic regurgitation is present. Tricuspid Valve The tricuspid valve is not well visualized, but is grossly normal. There is no tricuspid stenosis. There is a trace or physiologic amount of tricuspid regurgitation. Pulmonic Valve The pulmonic valve is not well visualized. Great Vessels The aortic root is not well visualized but is probably normal size. The inferior vena cava was not well visualized. Effusions There is no pericardial effusion. : DEMETRI ONEIL > Gena Moran
[2018-02-21] MEDS: QUETIAPINE FUMARATE 25 MG TABLET PO SCH (21:25)
[2018-02-22] MEDS: METOPROLOL SUCCINATE 50 MG TAB.SR.24H PO SCH (09:41)
[2018-02-22] MEDS: FUROSEMIDE 40 MG TABLET PO SCH ×2 (09:41→18:31)
[2018-02-22] MEDS: LOSARTAN POTASSIUM 50 MG TABLET PO SCH (09:42)
[2018-02-22] MEDS: NITROGLYCERIN 5 MG (0.2 MG/HR) PATCH.TD24 TD SCH (09:42)
[2018-02-22] MEDS: ASPIRIN 81 MG TABLET, CHEWABLE PO SCH (09:42)
[2018-02-22] MEDS: ENOXAPARIN SODIUM INJ 30 MG/0.3 ML DISP.SYRIN SUBCUT SCH (09:43)
[2018-02-22] MEDS: HYDRALAZINE HCL INJ/PF 20 MG/1 ML SDV IV PRN (11:59)
--- NOTE | 2018-02-22 12:20 | PDOC PROGRESS REPORT ---
Subjective Progress Note for:: 02/22/18 Subjective:: Assumed care today. Ms. Vail is an 87 yr old female with a PMH of diastolic heart failure, possible early dementia, COPD per daughter, hypertension, history of renal cell carcinoma with prior debulking surgery and hyperlipidemia who initially presented with increasing SOB and worsening pedal edema and was admitted for CHF exacerbation. She was recently admitted and discharged after sustaining rhabdomyolysis from a fall as well as fluid overload. No acute event overnight. Patient was compliant with BIPAP (2 hrs on/off). Upon encounter this morning, she is comfortable eating breakfast on nasal cannula. She says her breathing is back to baseline. Her pedal edema continue to significantly improve. Patient was evaluated by PT yesterday, recommended to be discharged to rehab. Reason For Visit: HEART FAILURE,CHRONIC KIDNEY DISEASE,HYPERTENSION Physical Exam Vital Signs: Temp Pulse Resp BP Pulse Ox 98.3 F 67 28 H 165/52 H 94 02/22/18 11:46 02/22/18 11:46 02/22/18 11:46 02/22/18 11:46 02/22/18 11:46 Intake & Output 02/21/18 02/22/18 02/23/18 06:59 06:59 06:59 Intake Total 811 Balance 811 Weight 154 lb 8.705 oz 151 lb 10.848 oz General appearance: PRESENT: no acute distress, well-developed, well-nourished Head exam: PRESENT: atraumatic, normocephalic Eye exam: PRESENT: conjunctiva pink, EOMI, PERRLA. ABSENT: scleral icterus Ear exam: PRESENT: normal external ear exam Mouth exam: PRESENT: moist, tongue midline Neck exam: ABSENT: carotid bruit, JVD, lymphadenopathy, thyromegaly Respiratory exam: PRESENT: decreased breath sounds - slightly reduced on the bases but significantly better from yesterday. ABSENT: rales, rhonchi, wheezes Cardiovascular exam: PRESENT: RRR. ABSENT: diastolic murmur, rubs, systolic murmur Pulses: PRESENT: normal dorsalis pedis pul GI/Abdominal exam: PRESENT: normal bowel sounds, soft. ABSENT: distended, guarding, mass, organolmegaly, rebound, tenderness Rectal exam: PRESENT: deferred Extremities exam: PRESENT: +1 edema Neurological exam: PRESENT: alert, awake, oriented to person, oriented to place , oriented to situation Results Laboratory Results: 02/21/18 04:30 02/21/18 04:30 02/19/18 02/19/18 02/19/18 16:13 16:13 16:13 Creatine Kinase 176 H CK-MB (CK-2) 1.87 Troponin I < 0.012 NT-Pro-B Natriuret Pep 3740 H 02/19/18 02/19/18 02/20/18 22:10 22:10 03:57 Creatine Kinase 124 98 CK-MB (CK-2) 1.36 Troponin I < 0.012 NT-Pro-B Natriuret Pep 02/20/18 03:57 Creatine Kinase CK-MB (CK-2) 1.11 Troponin I < 0.012 NT-Pro-B Natriuret Pep Impressions: Chest X-Ray 02/21/18 09:00 IMPRESSION: Slightly improved. Assessment & Plan - Diagnosis (1) Acute on chronic diastolic (congestive) heart failure Is this a current diagnosis for this admission?: Yes Plan: Resolving. Continue lasix 40 mg bid. Echo shows normal EF with grade 2 diastolic dysfunction. Continue I&Os. (2) Acute respiratory failure with hypercapnia Is this a current diagnosis for this admission?: Yes Plan: Initial ABG showed a PCO2 of 72. She has been compliant with BIPAP. She reportedly present with lethargy as well. She is now fully awake and alert and is saturating well on nasal cannula. Repeat ABG shows slightly improved PCO2 at 64. ABG is consistent with chronic hypercapnia with elevated HCO3. Daughter says that patient does have COPD and possible SHAHIDA as she has occasional pauses at sleep and feels tired during the day. Recommend outpatient sleep study. (3) Essential hypertension Is this a current diagnosis for this admission?: Yes Plan: Blood pressures running in the 150/50s. Continue losartan and metoprolol. (4) Acute delirium Is this a current diagnosis for this admission?: Yes Plan: Resolved. No recurrence of agitation overnight. She was started on seroquel for this episode on 02/20/18. - Time Time Spent with patient: 15-24 minutes
[2018-02-22] MEDS: QUETIAPINE FUMARATE 25 MG TABLET PO SCH (21:03)
[2018-02-23] MEDS: HYDRALAZINE HCL INJ/PF 20 MG/1 ML SDV IV PRN (07:33)
--- NOTE | 2018-02-23 08:46 | PDOC PROGRESS REPORT ---
Subjective Progress Note for:: 02/23/18 Subjective:: The patient states to feel much better. Her breathing has improved. Discussed with the daughter about placement. They would like to go to [facility] Reason For Visit: HEART FAILURE,CHRONIC KIDNEY DISEASE,HYPERTENSION Physical Exam Vital Signs: Temp Pulse Resp BP Pulse Ox 97.9 F 66 20 176/59 H 92 02/23/18 07:12 02/23/18 07:12 02/23/18 07:12 02/23/18 07:12 02/23/18 08:00 Intake & Output 02/22/18 02/23/18 02/24/18 06:59 06:59 06:59 Intake Total 811 723 Balance 811 723 Weight 68.8 kg 68.9 kg General appearance: PRESENT: mild distress Head exam: PRESENT: atraumatic Eye exam: PRESENT: conjunctiva pink Neck exam: PRESENT: carotid bruit. ABSENT: JVD Respiratory exam: PRESENT: crackles, rhonchi Cardiovascular exam: PRESENT: +S1, +S2 GI/Abdominal exam: PRESENT: normal bowel sounds, soft Extremities exam: PRESENT: tenderness Musculoskeletal exam: PRESENT: tenderness Neurological exam: PRESENT: awake Results Laboratory Results: 02/21/18 04:30 02/21/18 04:30 02/19/18 02/19/18 02/19/18 16:13 16:13 16:13 Creatine Kinase 176 H CK-MB (CK-2) 1.87 Troponin I < 0.012 NT-Pro-B Natriuret Pep 3740 H 02/19/18 02/19/18 02/20/18 22:10 22:10 03:57 Creatine Kinase 124 98 CK-MB (CK-2) 1.36 Troponin I < 0.012 NT-Pro-B Natriuret Pep 02/20/18 03:57 Creatine Kinase CK-MB (CK-2) 1.11 Troponin I < 0.012 NT-Pro-B Natriuret Pep Impressions: Chest X-Ray 02/21/18 09:00 IMPRESSION: Slightly improved. Assessment & Plan - Diagnosis (1) Acute on chronic systolic heart failure Is this a current diagnosis for this admission?: Yes Plan: Improved with diuretics (2) CO2 retention Is this a current diagnosis for this admission?: Yes Plan: Improved with BiPAP. Will switch patient to CPAP. We will obtain the blood gas. Most probably a well compensated chronic CO2 retention (3) Essential hypertension Is this a current diagnosis for this admission?: Yes Plan: Adjust blood pressure medications (4) DNR (do not resuscitate) Is this a current diagnosis for this admission?: Yes Plan: We will continue with DNR as per patient's wishes (5) Acute respiratory failure Is this a current diagnosis for this admission?: Yes Plan: Improved with BiPAP. We will continue with oxygen during the day and use the CPAP at night
[2018-02-23] MEDS: METOPROLOL SUCCINATE 50 MG TAB.SR.24H PO SCH (09:44)
[2018-02-23] MEDS: NITROGLYCERIN 5 MG (0.2 MG/HR) PATCH.TD24 TD SCH (09:45)
[2018-02-23] MEDS: FUROSEMIDE 40 MG TABLET PO SCH ×2 (09:45→17:46)
[2018-02-23] MEDS: LOSARTAN POTASSIUM 50 MG TABLET PO SCH (09:45)
[2018-02-23] MEDS: ASPIRIN 81 MG TABLET, CHEWABLE PO SCH (09:45)
[2018-02-23] MEDS: ENOXAPARIN SODIUM INJ 30 MG/0.3 ML DISP.SYRIN SUBCUT SCH (09:48)
[2018-02-23] MEDS ORDERED: AMLODIPINE BESYLATE 5 MG TABLET PO SCH (10:00)
[2018-02-23] MEDS ORDERED: METOPROLOL TARTRATE PF/INJ 5 MG/5 ML SDV IV ONE ×2 (10:13→11:30)
--- NOTE | 2018-02-23 10:30 | EKG REPORT ---
SEVERITY:- ABNORMAL ECG - ATRIAL FIBRILLATION WITH RAPID V-RATE ABERRANT COMPLEX ABNRM R PROG, CONSIDER ASMI OR LEAD PLACEMENT REPOLARIZATION ABNORMALITY, PROB RATE RELATED VS ISCHEMIA : Confirmed by: Gena Moran 23-Feb-2018 10:30:10
[2018-02-23] MEDS ORDERED: NITROGLYCERIN/D5W 50 MG/250 ML RTUINJ IV ONE (10:32)
[2018-02-23] MEDS ORDERED: MORPHINE SULFATE 10 MG/ML INJ ONE (10:33)
[2018-02-23] MEDS ORDERED: ONDANSETRON HCL INJ/PF 4 MG/2 ML SDV ONE (10:33)
[2018-02-23] MEDS ORDERED: ONDANSETRON HCL INJ/PF 4 MG/2 ML SDV IV PRN (11:06)
[2018-02-23] MEDS ORDERED: MORPHINE SULFATE 10 MG/ML INJ IV PRN (11:08)
[2018-02-23] MEDS ORDERED: DEXTROSE 5%-WATER 250 ML with NITROPRUSSIDE SODIUM 50 MG IV PRN ×2 (11:09)
[2018-02-23] MEDS ORDERED: DILTIAZEM HCL/D5W 125 MG/125 ML RTUINJ IV PRN (11:11)
[2018-02-23] MEDS ORDERED: NITROGLYCERIN 50 MG/D5W 250 ML IV PRN (11:17)
[2018-02-23 11:18] LABS: CREATINE KINASE MB 1.4 ng/mL (<4.55); TROPONIN I 0.015 ng/mL
[2018-02-23] MEDS ORDERED: DILTIAZEM HCL INJ 25 MG/5 ML VIAL IV ONE (11:30)
[2018-02-23 12:22] LABS: ARTERIAL BLOOD BASE EXCESS 12.9 mmol/L; ARTERIAL BLOOD FIO2 1.5L; ARTERIAL BLOOD H2CO3 1.52 mmol/L (1.05-1.35); ARTERIAL BLOOD HCO3 38.3 mmol/L (20-24); ARTERIAL BLOOD O2 SATURATION 88.1 % (94-98); ARTERIAL BLOOD PCO2 50.5 mmHg (35-45); ARTERIAL BLOOD PO2 50.3 mmHg (80-100); ARTERIAL BLOOD TOTAL CO2 39.9 mmol/L (21-25)
--- NOTE | 2018-02-23 12:27 | PDOC CONSULTATION ---
Consultation Consult Date: 02/23/18 Attending physician:: KARTIK BECKER Consult reason:: Atrial fibrillation with rapid ventricular response History of Present Illness Admission Date/PCP: 02/19/18 14:13 KARTIK BECKER MD Patient complains of: Shortness of breath History of Present Illness: Ms. Vail is an 87 yr old female with a PMH of diastolic heart failure, possible early dementia, COPD per daughter, hypertension, history of renal cell carcinoma with prior debulking surgery and hyperlipidemia who initially presented with increasing SOB and worsening pedal edema and was admitted for CHF exacerbation. She was recently admitted and discharged after sustaining rhabdomyolysis from a fall as well as fluid overload. This morning patient was noted to be in atrial fibrillation with rapid ventricular response. Patient was also noted to have problem with high blood pressure. Patient on direct questioning denied any chest pain but was noted to be short of breath. Patient's daughter in the room. Past Medical History Cardiac Medical History: Reports: Congestive Heart Failure - Chronic diastolic CHF [place] [employer] class 2, Hyperlipidema, Hypertension - 2004 meds started Denies: Coronary Artery Disease, Myocardial Infarction Pulmonary Medical History: Reports: Pneumonia - 2013 Denies: Asthma, Bronchitis, Chronic Obstructive Pulmonary Disease (COPD), Tuberculosis Neurological Medical History: Denies: Migraine, Seizures Endocrine Medical History: Denies: Diabetes Mellitus Type 1, Diabetes Mellitus Type 2, Hyperthyroidism, Hypothyroidism Renal/ Medical History: Reports: Chronic Kidney Disease Malignancy Medical History: Reports: Renal (Kidney) Cancer - She underwent a tumor debulking procedure of some nature GI Medical History: Denies: Cirrhosis, Crohn's Disease, Hepatitis, Ulcerative Colitis Musculoskeltal Medical History: Reports: Arthritis - hips Denies: Fibromyalgia Skin Medical History: Denies: Eczema, Psoriasis Psychiatric Medical History: Denies: Depression Hematology: Denies: Anemia, Bleeding Tendencies Past Surgical History Past Surgical History: Reports: Hysterectomy, Orthopedic Surgery - left knee surgery, Other - Kidney cancer surgery Denies: Pacemaker Social History Information Source: Relative Smoking Status: Never Smoker Frequency of Alcohol Use: Occasional Hx Recreational Drug Use: No Drugs: None Hx Prescription Drug Abuse: No - Advance Directive Resuscitation Status: Do Not Resuscitate Surrogate healthcare decision maker:: Patient's daughter is the surrogate decision-maker Family History Family History: Hypertension, Other - Heart disease Parental Family History Reviewed: Yes Children Family History Reviewed: Yes Sibling(s) Family History Reviewed.: Yes Medication/Allergy Home Medications: Amlodipine Besylate [Norvasc 5 mg Tablet] 5 mg PO DAILY 02/19/18 Aspirin [Aspirin 81 mg Chewable Tablet] 81 mg PO DAILY 02/19/18 Ergocalciferol (Vitamin D2) [Drisdol 50,000 unit (1.25MG) Capsule] 50,000 unit PO HERRERA 02/19/18 Fenofibrate 160 mg PO DAILY 02/19/18 Furosemide [Lasix 40 mg Tablet] 40 mg PO DAILY 02/19/18 Losartan Potassium [Cozaar 100 mg Tablet] 100 mg PO DAILY 02/19/18 Metoprolol Succinate [Toprol Xl] 200 mg PO DAILY 02/19/18 Nitroglycerin [Nitro-Dur 5 mg (0.2 mg/Hr) Transdermal Patch] 0.2 mg TD DAILY Pravastatin Sodium [Pravachol] 80 mg PO QHS 02/19/18 Allergies/Adverse Reactions: No Known Allergies Allergy (Verified 02/12/18 14:36) Review of Systems ROS unobtainable: Due to mental status Physical Exam Vital Signs: Temp Pulse Resp BP Pulse Ox 98.5 F 79 24 H 132/98 H 95 02/23/18 11:10 02/23/18 11:10 02/23/18 11:10 02/23/18 11:10 02/23/18 11:10 Intake & Output 02/22/18 02/23/18 02/24/18 06:59 06:59 06:59 Intake Total 811 723 118 Balance 811 723 118 Weight 68.8 kg 68.9 kg Exam: GENERAL: well-nourished and in no acute distress. Patient is alert and oriented x2. HEAD: Atraumatic, normocephalic. EYES: Pupils equal round and reactive to light, extraocular movements intact, sclera anicteric, conjunctiva are normal. ENT: TMs normal, nares patent, oropharynx clear without exudates. Moist mucous membranes. No oral ulcerations or bleeding gums noted NECK: supple without lymphadenopathy or JVD. Trachea is central. No cervical or axillary lymphadenopathy noted. Carotids are 2+ LUNGS: Breath sounds bibasilar fine crackles at bases. Mild bilateral wheezing noted. No significant dullness noted. CHEST: Palpation of chest wall shows no significant chest wall tenderness. HEART: [place] [employer], No PSH, 2/6 EDWINA aortic area, 1/6 almanzar systolic murmur mitral area, rubs or gallops. ABDOMEN: Soft, no significant tenderness appreciated, normoactive bowel sounds. No guarding, no rebound. No rigidity noted . No masses appreciated. EXTREMITIES: Pedal pulses are 1-2+, no calf tenderness noted, Trace + pedal edema noted. No clubbing or cyanosis. NEUROLOGICAL: Patient is alert and on quick exam no focal neurological deficit noted. PSYCH: Mood seems anxious but judgment and insight not checked. SKIN: No significant ecchymosis, rash, ulcerations or signs of pruritus noted. MUSCULOSKELETAL EXAM: No significant joint swelling noted. Results Laboratory Results: 02/21/18 04:30 02/21/18 04:30 02/19/18 02/19/18 02/19/18 16:13 16:13 16:13 Creatine Kinase 176 H CK-MB (CK-2) 1.87 Troponin I < 0.012 NT-Pro-B Natriuret Pep 3740 H 02/19/18 02/19/18 02/20/18 22:10 22:10 03:57 Creatine Kinase 124 98 CK-MB (CK-2) 1.36 Troponin I < 0.012 NT-Pro-B Natriuret Pep 02/20/18 02/23/18 03:57 10:36 Creatine Kinase CK-MB (CK-2) 1.11 1.40 Troponin I < 0.012 0.015 NT-Pro-B Natriuret Pep EKG Comments: Twelve-lead EKG shows A. fib with rapid ventricular response. Secondary rate related ST-T wave changes are noted. Impressions: Chest X-Ray 02/21/18 09:00 IMPRESSION: Slightly improved. Assessment & Plan - Diagnosis (1) Atrial fibrillation with rapid ventricular response Is this a current diagnosis for this admission?: Yes (2) Acute on chronic diastolic (congestive) heart failure Is this a current diagnosis for this admission?: Yes (3) Essential hypertension Is this a current diagnosis for this admission?: Yes (4) Hyperlipidemia, mixed Is this a current diagnosis for this admission?: Yes (5) Acute and chronic respiratory failure with hypercapnia Is this a current diagnosis for this admission?: Yes - Notes Notes: Atrial fibrillation with rapid ventricular response: Recommend IV Cardizem bolus and Cardizem drip. This is preferred in COPD patients unless they have significant LV systolic dysfunction. Could also use IV digoxin. Since patient had some problem with blood pressure and also was subsequently noted to have positive troponin I, feel that patient does not tolerate atrial fibrillation well therefore have started patient on multaq as well for prevention of recurrence of atrial fibrillation. Watch for any bradycardia. Acute on chronic diastolic heart failure: Agree with diuretic therapy, there is some contribution from right heart failure therefore would recommend oxygen supplementation and nightly bilevel/CPAP use. Hypertension: Blood pressure has been noted to be somewhat elevated. Continue with good management. Blood pressure goal in this elderly patient who is also DNR should be 160/90 or less. Hyperlipidemia: Continue with statin therapy. Acute on chronic respiratory failure with hypercapnia: Recommend good management of COPD along with oxygen supplementation and noninvasive ventilation as you were doing. COPD: Currently being adequately managed by primary clinician. - Time Time Spent: 30 to 50 Minutes - CODE STATUS : was discussed, patient remains DO NOT RESUSCITATE. Surrogate decision-maker unchanged. Multiple medical problems were addressed. More than 50% of the time spent coordinating care, discussing management plans with involved caregivers. Management plans discussed with involved personnels. Medical decision making was of moderate to high complexity, patient's has multiple comorbidities. Medications reviewed and adjusted accordingly: Yes
[2018-02-23] MEDS: DILTIAZEM HCL 120 MG CAP.SR.24H PO SCH (13:38)
[2018-02-23 17:16] LABS: CREATINE KINASE MB 2.66 ng/mL (<4.55)
[2018-02-23 17:18] LABS: TROPONIN I 0.328 ng/mL
[2018-02-23] MEDS: DRONEDARONE HYDROCHLORIDE 400 MG TABLET PO SCH (17:46)
--- NOTE | 2018-02-23 20:09 | EKG REPORT ---
SEVERITY:- BORDERLINE ECG - SINUS RHYTHM VENTRICULAR PREMATURE COMPLEX BORDERLINE T WAVE ABNORMALITIES : Confirmed by: Gena Moran 23-Feb-2018 20:08:50
[2018-02-23] MEDS: QUETIAPINE FUMARATE 25 MG TABLET PO SCH (21:09)
[2018-02-23 22:40] LABS: CREATINE KINASE MB 2.85 ng/mL (<4.55)
[2018-02-23 22:43] LABS: TROPONIN I 0.556 ng/mL
[2018-02-24] MEDS: DRONEDARONE HYDROCHLORIDE 400 MG TABLET PO SCH ×2 (05:10→17:32)
[2018-02-24 05:30] LABS: ABSOLUTE EOSINOPHILS # (AUTO) 0.2 10^3/uL (0.0-0.6); ABSOLUTE LYMPHOCYTES (AUTO) 2.3 10^3/uL (0.5-4.7); ABSOLUTE MONOCYTES (AUTO) 0.6 10^3/uL (0.1-1.4); ABSOLUTE NEUT (AUTO) 4.3 10^3/uL (1.7-8.2); BASOPHILS % (AUTO) 0.4 % (0-2); EOSINOPHILS % (AUTO) 3.3 % (0-6); HEMATOCRIT 31.5 % (36.0-47.0); HEMOGLOBIN 10.6 g/dL (12.0-15.5); LYMPHOCYTES % (AUTO) 30.6 % (13-45); MEAN CORPUSCULAR HEMOGLOBIN 30.6 pg (27.0-33.4); MEAN CORPUSCULAR HGB CONC 33.7 g/dL (32.0-36.0); MEAN CORPUSCULAR VOLUME 91 fl (80-97); MONOCYTES % (AUTO) 8.1 % (3-13); PLATELET COUNT 301 10^3/uL (150-450); RED BLOOD COUNT 3.48 10^6/uL (3.72-5.28); RED CELL DISTRIBUTION WIDTH 14.3 % (11.5-14.0); SEGMENTED NEUTROPHILS % (AUTO) 57.6 % (42-78); TOTAL CELLS COUNTED % (AUTO) 100 %; WHITE BLOOD COUNT 7.5 10^3/uL (4.0-10.5)
[2018-02-24 05:42] LABS: ALANINE AMINOTRANSFERASE 42 U/L (9-52); ALBUMIN 2.7 g/dL (3.5-5.0); ALKALINE PHOSPHATASE 40 U/L (38-126); ANION GAP 10 (5-19); ASPARTATE AMINO TRANSFERASE 45 U/L (14-36); BILIRUBIN,DIRECT 0.3 mg/dL (0.0-0.4); BILIRUBIN,TOTAL 0.4 mg/dL (0.2-1.3); BLOOD UREA NITROGEN 43 mg/dL (7-20); CALCIUM 9.3 mg/dL (8.4-10.2); CARBON DIOXIDE 37 mmol/L (22-30); CHLORIDE 95 mmol/L (98-107); GLUCOSE 99 mg/dL (75-110); POTASSIUM 3.7 mmol/L (3.6-5.0); SODIUM 141.7 mmol/L (137-145)
[2018-02-24] MEDS ORDERED: NORMAL SALINE 1000 ML 1,000 ML IV PRN (08:37)
--- NOTE | 2018-02-24 08:46 | PDOC PROGRESS REPORT ---
Subjective Progress Note for:: 02/24/18 Subjective:: The patient states to feel better. She denies any chest pain. She appears to be more lethargic than yesterday. She had an episode of rapid A. fib with rapid ventricular response and have spilled some enzymes. She is presently in normal sinus rhythm. She was seen by cardiology and had medications readjusted. Her labs showed some increase in creatinine. Reason For Visit: HEART FAILURE,CHRONIC KIDNEY DISEASE,HYPERTENSION Physical Exam Vital Signs: Temp Pulse Resp BP Pulse Ox 97.8 F 59 L 19 104/34 L 96 02/24/18 07:32 02/24/18 07:32 02/24/18 07:32 02/24/18 07:32 02/24/18 07:32 Intake & Output 02/23/18 02/24/18 02/25/18 06:59 06:59 06:59 Intake Total 723 980 Balance 723 980 Weight 68.9 kg 69.9 kg General appearance: PRESENT: mild distress Head exam: PRESENT: atraumatic Eye exam: PRESENT: conjunctiva pink Neck exam: PRESENT: carotid bruit. ABSENT: JVD Respiratory exam: PRESENT: rhonchi Cardiovascular exam: PRESENT: RRR, +S1, +S2 GI/Abdominal exam: PRESENT: normal bowel sounds, soft Extremities exam: PRESENT: tenderness Musculoskeletal exam: PRESENT: tenderness Neurological exam: PRESENT: alert, awake Results Laboratory Results: 02/24/18 05:12 02/24/18 05:12 02/23/18 02/24/18 02/24/18 09:36 05:12 05:12 WBC 7.5 RBC 3.48 L Hgb 10.6 L Hct 31.5 L MCV 91 MCH 30.6 MCHC 33.7 RDW 14.3 H Plt Count 301 Seg Neutrophils % 57.6 Lymphocytes % 30.6 Monocytes % 8.1 Eosinophils % 3.3 Basophils % 0.4 Absolute Neutrophils 4.3 Absolute Lymphocytes 2.3 Absolute Monocytes 0.6 Absolute Eosinophils 0.2 Absolute Basophils 0.0 Carbonic Acid 1.52 H HCO3/H2CO3 Ratio 25:1 ABG pH 7.50 H ABG pCO2 50.5 H ABG pO2 50.3 L ABG HCO3 38.3 H ABG O2 Saturation 88.1 L ABG Base Excess 12.9 FiO2 1.5L Sodium 141.7 Potassium 3.7 Chloride 95 L Carbon Dioxide 37 H Anion Gap 10 BUN 43 H Creatinine 1.95 H Est GFR ( Amer) 29 L Est GFR (Non-Af Amer) 24 L Glucose 99 Calcium 9.3 Magnesium 2.0 Total Bilirubin 0.4 AST 45 H ALT 42 Alkaline Phosphatase 40 Total Protein 5.0 L Albumin 2.7 L 02/19/18 02/19/18 02/19/18 16:13 16:13 16:13 Creatine Kinase 176 H CK-MB (CK-2) 1.87 Troponin I < 0.012 NT-Pro-B Natriuret Pep 3740 H 02/19/18 02/19/18 02/20/18 22:10 22:10 03:57 Creatine Kinase 124 98 CK-MB (CK-2) 1.36 Troponin I < 0.012 NT-Pro-B Natriuret Pep 02/20/18 02/23/18 02/23/18 03:57 10:36 10:36 Creatine Kinase 50 CK-MB (CK-2) 1.11 1.40 Troponin I < 0.012 0.015 NT-Pro-B Natriuret Pep 02/23/18 02/23/18 02/23/18 16:20 16:20 22:00 Creatine Kinase 47 47 CK-MB (CK-2) 2.66 Troponin I 0.328 NT-Pro-B Natriuret Pep 02/23/18 22:00 Creatine Kinase CK-MB (CK-2) 2.85 Troponin I 0.556 NT-Pro-B Natriuret Pep Impressions: Chest X-Ray 02/21/18 09:00 IMPRESSION: Slightly improved. Assessment & Plan - Diagnosis (1) Acute on chronic systolic heart failure Is this a current diagnosis for this admission?: Yes Plan: Improved with diuretics (2) CO2 retention Is this a current diagnosis for this admission?: Yes Plan: Improved with BiPAP. Will switch patient to CPAP. We will obtain the blood gas. Most probably a well compensated chronic CO2 retention (3) Essential hypertension Is this a current diagnosis for this admission?: Yes (4) DNR (do not resuscitate) Is this a current diagnosis for this admission?: Yes Plan: We will continue with DNR as per patient's wishes (5) Acute respiratory failure Is this a current diagnosis for this admission?: Yes Plan: Improved with BiPAP. We will continue with oxygen during the day and use the CPAP at night (6) Atrial fibrillation with rapid ventricular response Is this a current diagnosis for this admission?: Yes Plan: Presently normal sinus rhythm. We will continue with current medications. Will stop the metoprolol and continue the Cardizem (7) Acute renal failure superimposed on chronic kidney disease Is this a current diagnosis for this admission?: Yes Plan: Most probably related to yesterday's event. Will start some hydration.
[2018-02-24] MEDS: DILTIAZEM HCL 120 MG CAP.SR.24H PO SCH (09:18)
[2018-02-24] MEDS: NITROGLYCERIN 5 MG (0.2 MG/HR) PATCH.TD24 TD SCH (09:18)
[2018-02-24] MEDS: ASPIRIN 81 MG TABLET, CHEWABLE PO SCH (09:18)
[2018-02-24] MEDS: ENOXAPARIN SODIUM INJ 30 MG/0.3 ML DISP.SYRIN SUBCUT SCH (09:19)
[2018-02-24] MEDS: FUROSEMIDE 40 MG TABLET PO SCH (09:19)
[2018-02-24] MEDS: LOSARTAN POTASSIUM 50 MG TABLET PO SCH (09:20)
--- NOTE | 2018-02-24 09:53 | EKG REPORT ---
SEVERITY:- NORMAL ECG - SINUS RHYTHM : Confirmed by: Gena Moran 24-Feb-2018 09:52:48
[2018-02-24] MEDS ORDERED: APIXABAN 2.5 MG TABLET PO SCH (10:00)
[2018-02-24 11:25] LABS: VENOUS BLOOD BASE EXCESS 10.3 mmol/L; VENOUS BLOOD HCO3 39.5 mmol/L (20-32); VENOUS BLOOD PH 7.34 (7.30-7.42)
[2018-02-24 11:26] LABS: VENOUS BLOOD PCO2 74.5 mmHg (35-63)
[2018-02-24 11:53] LABS: ARTERIAL BLOOD BASE EXCESS 11.6 mmol/L; ARTERIAL BLOOD FIO2 2L; ARTERIAL BLOOD H2CO3 1.84 mmol/L (1.05-1.35); ARTERIAL BLOOD HCO3 38.3 mmol/L (20-24); ARTERIAL BLOOD O2 SATURATION 95.2 % (94-98); ARTERIAL BLOOD PCO2 61.1 mmHg (35-45); ARTERIAL BLOOD PH 7.42 (7.35-7.45); ARTERIAL BLOOD PO2 76.9 mmHg (80-100); ARTERIAL BLOOD TOTAL CO2 40.2 mmol/L (21-25)
[2018-02-24] MEDS: APIXABAN 2.5 MG TABLET PO SCH (17:33)
[2018-02-24] MEDS: QUETIAPINE FUMARATE 25 MG TABLET PO SCH (22:28)
[2018-02-25 06:35] LABS: ABSOLUTE EOSINOPHILS # (AUTO) 0.2 10^3/uL (0.0-0.6); ABSOLUTE LYMPHOCYTES (AUTO) 2.2 10^3/uL (0.5-4.7); ABSOLUTE MONOCYTES (AUTO) 0.6 10^3/uL (0.1-1.4); ABSOLUTE NEUT (AUTO) 4.7 10^3/uL (1.7-8.2); BASOPHILS % (AUTO) 0.4 % (0-2); EOSINOPHILS % (AUTO) 3.1 % (0-6); HEMATOCRIT 34.1 % (36.0-47.0); HEMOGLOBIN 11.5 g/dL (12.0-15.5); LYMPHOCYTES % (AUTO) 28.4 % (13-45); MEAN CORPUSCULAR HEMOGLOBIN 30.3 pg (27.0-33.4); MEAN CORPUSCULAR HGB CONC 33.7 g/dL (32.0-36.0); MEAN CORPUSCULAR VOLUME 90 fl (80-97); MONOCYTES % (AUTO) 8.1 % (3-13); PLATELET COUNT 306 10^3/uL (150-450); RED BLOOD COUNT 3.79 10^6/uL (3.72-5.28); RED CELL DISTRIBUTION WIDTH 13.9 % (11.5-14.0); TOTAL CELLS COUNTED % (AUTO) 100 %; WHITE BLOOD COUNT 7.9 10^3/uL (4.0-10.5)
[2018-02-25] MEDS: DRONEDARONE HYDROCHLORIDE 400 MG TABLET PO SCH ×2 (06:46→17:50)
[2018-02-25 07:21] LABS: ALANINE AMINOTRANSFERASE 48 U/L (9-52); ALKALINE PHOSPHATASE 46 U/L (38-126); ANION GAP 7 (5-19); ASPARTATE AMINO TRANSFERASE 48 U/L (14-36); BILIRUBIN,DIRECT 0.3 mg/dL (0.0-0.4); BILIRUBIN,TOTAL 0.5 mg/dL (0.2-1.3); BLOOD UREA NITROGEN 39 mg/dL (7-20); CALCIUM 9.7 mg/dL (8.4-10.2); CARBON DIOXIDE 38 mmol/L (22-30); CHLORIDE 96 mmol/L (98-107); GLUCOSE 99 mg/dL (75-110); POTASSIUM 3.8 mmol/L (3.6-5.0); TOTAL PROTEIN 5.6 g/dL (6.3-8.2)
--- NOTE | 2018-02-25 08:35 | PDOC PROGRESS REPORT ---
Subjective Progress Note for:: 02/25/18 Subjective:: The patient states to feel much better. She denies any shortness of breath or chest pain. The IV fluids have been stopped. Her kidney function has improved. Her blood gas has improved. Tolerated CPAP well Reason For Visit: HEART FAILURE,CHRONIC KIDNEY DISEASE,HYPERTENSION Physical Exam Vital Signs: Temp Pulse Resp BP Pulse Ox 98.2 F 70 19 135/48 H 94 02/25/18 07:51 02/25/18 07:51 02/25/18 07:51 02/25/18 07:51 02/25/18 07:51 Intake & Output 02/24/18 02/25/18 02/26/18 06:59 06:59 06:59 Intake Total 980 947 Output Total 300 Balance 980 647 Weight 69.9 kg 69.6 kg General appearance: PRESENT: mild distress Head exam: PRESENT: atraumatic Eye exam: PRESENT: conjunctiva pink Neck exam: ABSENT: carotid bruit, JVD Respiratory exam: PRESENT: crackles Cardiovascular exam: PRESENT: RRR, +S1, +S2 GI/Abdominal exam: PRESENT: normal bowel sounds, soft Musculoskeletal exam: PRESENT: ambulatory Neurological exam: PRESENT: alert, awake Results Laboratory Results: 02/25/18 05:37 02/25/18 05:37 02/24/18 02/24/18 02/24/18 10:12 10:12 11:35 WBC RBC Hgb Hct MCV MCH MCHC RDW Plt Count Seg Neutrophils % Lymphocytes % Monocytes % Eosinophils % Basophils % Absolute Neutrophils Absolute Lymphocytes Absolute Monocytes Absolute Eosinophils Absolute Basophils Carbonic Acid Cancelled 1.84 H HCO3/H2CO3 Ratio Cancelled 20:1 ABG pH Cancelled 7.42 ABG pCO2 Cancelled 61.1 H ABG pO2 Cancelled 76.9 L ABG HCO3 Cancelled 38.3 H ABG O2 Saturation Cancelled 95.2 ABG Base Excess Cancelled 11.6 VBG pH 7.34 VBG pCO2 74.5 H* VBG HCO3 39.5 H VBG Base Excess 10.3 FiO2 Cancelled 2L Sodium Potassium Chloride Carbon Dioxide Anion Gap BUN Creatinine Est GFR ( Amer) Est GFR (Non-Af Amer) Glucose Calcium Magnesium Total Bilirubin AST ALT Alkaline Phosphatase Total Protein Albumin 02/25/18 02/25/18 05:37 05:37 WBC 7.9 RBC 3.79 Hgb 11.5 L Hct 34.1 L MCV 90 MCH 30.3 MCHC 33.7 RDW 13.9 Plt Count 306 Seg Neutrophils % 60.0 Lymphocytes % 28.4 Monocytes % 8.1 Eosinophils % 3.1 Basophils % 0.4 Absolute Neutrophils 4.7 Absolute Lymphocytes 2.2 Absolute Monocytes 0.6 Absolute Eosinophils 0.2 Absolute Basophils 0.0 Carbonic Acid HCO3/H2CO3 Ratio ABG pH ABG pCO2 ABG pO2 ABG HCO3 ABG O2 Saturation ABG Base Excess VBG pH VBG pCO2 VBG HCO3 VBG Base Excess FiO2 Sodium 141.0 Potassium 3.8 Chloride 96 L Carbon Dioxide 38 H Anion Gap 7 BUN 39 H Creatinine 1.55 H Est GFR ( Amer) 38 L Est GFR (Non-Af Amer) 32 L Glucose 99 Calcium 9.7 Magnesium 2.1 Total Bilirubin 0.5 AST 48 H ALT 48 Alkaline Phosphatase 46 Total Protein 5.6 L Albumin 3.0 L 02/19/18 02/19/18 02/19/18 16:13 16:13 16:13 Creatine Kinase 176 H CK-MB (CK-2) 1.87 Troponin I < 0.012 NT-Pro-B Natriuret Pep 3740 H 02/19/18 02/19/18 02/20/18 22:10 22:10 03:57 Creatine Kinase 124 98 CK-MB (CK-2) 1.36 Troponin I < 0.012 NT-Pro-B Natriuret Pep 02/20/18 02/23/18 02/23/18 03:57 10:36 10:36 Creatine Kinase 50 CK-MB (CK-2) 1.11 1.40 Troponin I < 0.012 0.015 NT-Pro-B Natriuret Pep 02/23/18 02/23/18 02/23/18 16:20 16:20 22:00 Creatine Kinase 47 47 CK-MB (CK-2) 2.66 Troponin I 0.328 NT-Pro-B Natriuret Pep 02/23/18 22:00 Creatine Kinase CK-MB (CK-2) 2.85 Troponin I 0.556 NT-Pro-B Natriuret Pep Impressions: Chest X-Ray 02/21/18 09:00 IMPRESSION: Slightly improved. Assessment & Plan - Diagnosis (1) Acute on chronic systolic heart failure Is this a current diagnosis for this admission?: Yes Plan: Improved (2) CO2 retention Is this a current diagnosis for this admission?: Yes Plan: Much improved with O2 diureses and CPAP (3) Essential hypertension Is this a current diagnosis for this admission?: Yes Plan: Adjust blood pressure medications (4) DNR (do not resuscitate) Is this a current diagnosis for this admission?: Yes Plan: We will continue with DNR as per patient's wishes (5) Acute respiratory failure Is this a current diagnosis for this admission?: Yes (6) Atrial fibrillation with rapid ventricular response Is this a current diagnosis for this admission?: Yes Plan: Presently in normal sinus rhythm. We will continue the Multitak for 1 more months as recommended by cardiology (7) Acute renal failure superimposed on chronic kidney disease Is this a current diagnosis for this admission?: Yes
[2018-02-25] MEDS: ASPIRIN 81 MG TABLET, CHEWABLE PO SCH (10:01)
[2018-02-25] MEDS: NITROGLYCERIN 5 MG (0.2 MG/HR) PATCH.TD24 TD SCH (10:01)
[2018-02-25] MEDS: FUROSEMIDE 40 MG TABLET PO SCH (10:01)
[2018-02-25] MEDS: LOSARTAN POTASSIUM 50 MG TABLET PO SCH (10:01)
[2018-02-25] MEDS: APIXABAN 2.5 MG TABLET PO SCH ×2 (10:01→17:50)
[2018-02-25] MEDS: DILTIAZEM HCL 120 MG CAP.SR.24H PO SCH (10:01)
--- NOTE | 2018-02-25 20:05 | PDOC PROGRESS REPORT ---
Subjective Progress Note for:: 02/25/18 Subjective:: Feeling better. Maintaining sinus rhythm. Troponin I noted to be elevated but did not feel patient would be a candidate for ischemia evaluation. Troponin I elevation probably related to atrial fibrillation with rapid ventricular response. Currently stable. After discussion with Franky Alanis MD, it was decided to place patient on renal dose of Eliquis at 2.5 mg p.o. twice daily. Need to observe for any bleeding. Reason For Visit: HEART FAILURE,CHRONIC KIDNEY DISEASE,HYPERTENSION Physical Exam Vital Signs: Temp Pulse Resp BP Pulse Ox 98.0 F 67 18 153/38 H 96 02/25/18 15:42 02/25/18 15:44 02/25/18 15:44 02/25/18 15:44 02/25/18 15:44 Intake & Output 02/24/18 02/25/18 02/26/18 06:59 06:59 06:59 Intake Total 980 947 592 Output Total 300 Balance 980 647 592 Weight 69.9 kg 69.6 kg Exam: GENERAL: well-nourished and in no acute distress. HEAD: Atraumatic, normocephalic. EYES: MICHAEL, sclera anicteric, conjunctiva are normal. ENT: Moist mucous membranes. No oral ulcerations or bleeding gums noted. No obvious ear, nose or throat abnormalities noted. NECK: supple without lymphadenopathy. Trachea is central. No cervical or axillary lymphadenopathy noted. Carotids are 2+, JVD WNL LUNGS: Few a scattered wheezes rales or rhonchi noted. No significant dullness noted on percussion. CHEST: Palpation of the chest wall shows no significant chest wall tenderness. 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 ABDOMEN: Soft, no significant tenderness appreciated, normoactive bowel sounds. No guarding, no rebound. No rigidity noted . No masses appreciated. EXTREMITIES: Pedal pulses are 1-2+, no calf tenderness noted. No clubbing or cyanosis. negative pedal edema noted NEUROLOGICAL: Focused neurological exam showed no significant neurologic deficit. Normal speech, no focal weakness appreciated. PSYCH: Normal mood, normal affect. SKIN: No significant ecchymosis, skin is noted to be warm. MUSCULOSKELETAL EXAM: No significant acute joint swelling noted. Results Laboratory Results: 02/25/18 05:37 02/25/18 05:37 02/25/18 02/25/18 05:37 05:37 WBC 7.9 RBC 3.79 Hgb 11.5 L Hct 34.1 L MCV 90 MCH 30.3 MCHC 33.7 RDW 13.9 Plt Count 306 Seg Neutrophils % 60.0 Lymphocytes % 28.4 Monocytes % 8.1 Eosinophils % 3.1 Basophils % 0.4 Absolute Neutrophils 4.7 Absolute Lymphocytes 2.2 Absolute Monocytes 0.6 Absolute Eosinophils 0.2 Absolute Basophils 0.0 Sodium 141.0 Potassium 3.8 Chloride 96 L Carbon Dioxide 38 H Anion Gap 7 BUN 39 H Creatinine 1.55 H Est GFR ( Amer) 38 L Est GFR (Non-Af Amer) 32 L Glucose 99 Calcium 9.7 Magnesium 2.1 Total Bilirubin 0.5 AST 48 H ALT 48 Alkaline Phosphatase 46 Total Protein 5.6 L Albumin 3.0 L 02/19/18 02/19/18 02/19/18 16:13 16:13 16:13 Creatine Kinase 176 H CK-MB (CK-2) 1.87 Troponin I < 0.012 NT-Pro-B Natriuret Pep 3740 H 02/19/18 02/19/18 02/20/18 22:10 22:10 03:57 Creatine Kinase 124 98 CK-MB (CK-2) 1.36 Troponin I < 0.012 NT-Pro-B Natriuret Pep 02/20/18 02/23/18 02/23/18 03:57 10:36 10:36 Creatine Kinase 50 CK-MB (CK-2) 1.11 1.40 Troponin I < 0.012 0.015 NT-Pro-B Natriuret Pep 02/23/18 02/23/18 02/23/18 16:20 16:20 22:00 Creatine Kinase 47 47 CK-MB (CK-2) 2.66 Troponin I 0.328 NT-Pro-B Natriuret Pep 02/23/18 22:00 Creatine Kinase CK-MB (CK-2) 2.85 Troponin I 0.556 NT-Pro-B Natriuret Pep EKG Comments: Noted to be in sinus rhythm Impressions: Chest X-Ray 02/21/18 09:00 IMPRESSION: Slightly improved. Assessment & Plan - Diagnosis (1) Atrial fibrillation with rapid ventricular response Is this a current diagnosis for this admission?: Yes (2) Acute on chronic diastolic (congestive) heart failure Is this a current diagnosis for this admission?: Yes (3) Essential hypertension Is this a current diagnosis for this admission?: Yes (4) Hyperlipidemia, mixed Is this a current diagnosis for this admission?: Yes (5) Acute and chronic respiratory failure with hypercapnia Is this a current diagnosis for this admission?: Yes - Notes Notes: Atrial fibrillation with rapid ventricular response: Patient converted to sinus rhythm day before yesterday and since then has maintained sinus rhythm. Continue Cardizem at current dose. Recommend multaq therapy chest for a total of 1 month after which it can be stopped. This is to erase any myocyte memory. Acute on chronic diastolic heart failure: Currently seems compensated. Continue with maintenance diuretic therapy, there is some contribution from right heart failure therefore would recommend oxygen supplementation and nightly bilevel/CPAP use. Hypertension: Blood pressure has been noted to be somewhat elevated. Continue with good management. Blood pressure goal in this elderly patient who is also DNR should be 160/90 or less. Hyperlipidemia: Continue with statin therapy. Acute on chronic respiratory failure with hypercapnia: Recommend good management of COPD along with oxygen supplementation and noninvasive ventilation as you were doing. COPD: Currently being adequately managed by it security manager. - Time Time with patient: Greater than 35 minutes Medications reviewed and adjusted accordingly: Yes
[2018-02-25] MEDS: QUETIAPINE FUMARATE 25 MG TABLET PO SCH (21:15)
[2018-02-26] MEDS: DRONEDARONE HYDROCHLORIDE 400 MG TABLET PO SCH (05:00)
[2018-02-26 08:30] VITALS: BP 146/72
--- NOTE | 2018-02-26 08:54 | EKG REPORT ---
SEVERITY:- NORMAL ECG - SINUS RHYTHM : Confirmed by: Gena Moran 26-Feb-2018 08:53:34
--- NOTE | 2018-02-26 08:59 | PDOC TRANSFER SUMMARY ---
General - Admit/Disc Date/PCP Admission Date/Primary Care Provider: 02/19/18 14:13 KARTIK BECKER MD Discharge Date: 02/26/18 - Discharge Diagnosis (1) Acute on chronic systolic heart failure Is this a current diagnosis for this admission?: Yes Summary: Resolved continue current treatment (2) CO2 retention Is this a current diagnosis for this admission?: Yes Summary: Improved we will continue with O2 by nasal cannula 2 L during the day and a CPAP at night with a setting at 12 cm of H2O (3) Essential hypertension Is this a current diagnosis for this admission?: Yes Summary: Stable continue current medications (4) DNR (do not resuscitate) Is this a current diagnosis for this admission?: Yes Summary: Continue current DNR status (5) Acute respiratory failure Is this a current diagnosis for this admission?: Yes (6) Atrial fibrillation with rapid ventricular response Is this a current diagnosis for this admission?: Yes Summary: Presently back in normal sinus rhythm. We will continue Cardizem p.o. We will continue Multaq for 1 months as recommended by equipment processor. (7) Acute renal failure superimposed on chronic kidney disease Is this a current diagnosis for this admission?: Yes Summary: CKD 3 stable. We will continue with current dose of diuretic - Additional Information Resuscitation Status: Do Not Resuscitate Discharge Diet: Cardiac Discharge Activity: Activity As Tolerated, Balance Activity w/Rest, Weigh Daily Home Medications: Ergocalciferol (Vitamin D2) [Drisdol 50,000 unit (1.25MG) Capsule] 50,000 unit PO HERRERA 02/19/18 Fenofibrate 160 mg PO DAILY 02/19/18 Furosemide [Lasix 40 mg Tablet] 40 mg PO DAILY 02/19/18 Losartan Potassium [Cozaar 100 mg Tablet] 100 mg PO DAILY 02/19/18 Nitroglycerin [Nitro-Dur 5 mg (0.2 mg/Hr) Transdermal Patch] 0.2 mg TD DAILY Apixaban [Eliquis 2.5 mg Tablet] 2.5 mg PO BID tablet 02/26/18 Diltiazem HCl [Cardizem Cd 120 mg Capsule] 120 mg PO DAILY cap.sr.24h 02/26/18 Dronedarone Hydrochloride [Multaq 400 mg Tablet] 400 mg PO Q12A tablet Furosemide [Lasix 40 mg Tablet] 40 mg PO DAILY tablet 02/26/18 Ipratropium/Albuterol Sulfate [Duoneb 3 ml Ampul] 3 ml NEB [id number] PRN vial.neb 02/26/18 Quetiapine Fumarate [Seroquel 25 mg Tablet] 25 mg PO QHS tablet 02/26/18 History of Present Illness Admission Date/PCP: 02/19/18 14:13 KARTIK BECKER MD Hospital Course Hospital Course: The patient was admitted with a CO2 retention and congestive heart failure. She had significant diureses. She was placed on BiPAP. Her CO2 has decreased down to 60 which is her baseline. She continued to improve. Unfortunately she has developed an acute onset of atrial fibrillation with rapid ventricular response and had some spilling of the enzymes. She was seen by cardiology and started on Cardizem drip and antiarrhythmics. She converted back to normal sinus rhythm and has stayed in normal sinus. Her blood gas was acceptable. She did quite well with just the O2 by nasal cannula during the day and his CPAP at night. Long discussion with the family about the rehab. They might consider eventually changing and transferring to a termite treater care if they have the resources. On the day of discharge he appeared comfortable in no acute distress. She did have a bowel movement. Physical Exam Vital Signs: Temp Pulse Resp BP Pulse Ox 98.0 F 75 24 H 146/72 H 93 02/26/18 07:47 02/26/18 07:47 02/26/18 07:47 02/26/18 07:47 02/26/18 07:47 Intake & Output 02/25/18 02/26/18 02/27/18 06:59 06:59 06:59 Intake Total 947 829 Output Total 300 Balance 647 829 Weight 69.6 kg 71.6 kg General appearance: PRESENT: no acute distress Head exam: PRESENT: atraumatic Eye exam: PRESENT: conjunctiva pink Neck exam: PRESENT: carotid bruit. ABSENT: JVD Respiratory exam: PRESENT: crackles, rhonchi Cardiovascular exam: PRESENT: RRR, +S1, +S2 GI/Abdominal exam: PRESENT: normal bowel sounds, soft Extremities exam: PRESENT: tenderness Musculoskeletal exam: PRESENT: tenderness Neurological exam: PRESENT: alert, awake Results Laboratory Results: 02/25/18 05:37 02/25/18 05:37 02/19/18 02/19/18 02/19/18 16:13 16:13 16:13 Creatine Kinase 176 H CK-MB (CK-2) 1.87 Troponin I < 0.012 NT-Pro-B Natriuret Pep 3740 H 02/19/18 02/19/18 02/20/18 22:10 22:10 03:57 Creatine Kinase 124 98 CK-MB (CK-2) 1.36 Troponin I < 0.012 NT-Pro-B Natriuret Pep 02/20/18 02/23/18 02/23/18 03:57 10:36 10:36 Creatine Kinase 50 CK-MB (CK-2) 1.11 1.40 Troponin I < 0.012 0.015 NT-Pro-B Natriuret Pep 02/23/18 02/23/18 02/23/18 16:20 16:20 22:00 Creatine Kinase 47 47 CK-MB (CK-2) 2.66 Troponin I 0.328 NT-Pro-B Natriuret Pep 02/23/18 22:00 Creatine Kinase CK-MB (CK-2) 2.85 Troponin I 0.556 NT-Pro-B Natriuret Pep Impressions: Chest X-Ray 02/21/18 09:00 IMPRESSION: Slightly improved. Qualifiers - * PATIENT BEING DISCHARGED WITH ANY OF THE FOLLOWING DIAGNOSIS: Heart Failure AL Pt being discharged on Aspirin therapy?: No Reason(s) for not prescribing Aspirin therapy:: Medical Contraindication HF Pt being discharged on ACEI for LVEF less than 40%?: Yes HF Pt being discharged on ARBS for LVEF less than 40%?: Yes HF Pt with Afib discharged with Warfarin?: Yes HF Pt discharged on evidence-based Beta Angel:: No Reason(s) for not prescribing evidence-based Beta Angel:: Medical Contraindication
[2018-02-26] MEDS: NITROGLYCERIN 5 MG (0.2 MG/HR) PATCH.TD24 TD SCH (09:05)
[2018-02-26] MEDS: LOSARTAN POTASSIUM 50 MG TABLET PO SCH (09:05)
[2018-02-26] MEDS: DILTIAZEM HCL 120 MG CAP.SR.24H PO SCH (09:05)
[2018-02-26] MEDS: ASPIRIN 81 MG TABLET, CHEWABLE PO SCH (09:05)
[2018-02-26] MEDS: FUROSEMIDE 40 MG TABLET PO SCH (09:05)
[2018-02-26] MEDS: APIXABAN 2.5 MG TABLET PO SCH (09:06)
--- NOTE | 2018-02-27 23:17 | PDOC PROGRESS REPORT ---
Subjective Progress Note for:: 02/26/18 Subjective:: Feeling better. Maintaining sinus rhythm. Troponin I noted to be elevated but did not feel patient would be a candidate for ischemia evaluation. Troponin I elevation probably related to atrial fibrillation with rapid ventricular response. Currently stable. After discussion with Franky Alanis MD, it was decided to place patient on renal dose of Eliquis at 2.5 mg p.o. twice daily. Need to observe for any bleeding. Reason For Visit: HEART FAILURE,CHRONIC KIDNEY DISEASE,HYPERTENSION Physical Exam Vital Signs: Temp Pulse Resp BP Pulse Ox 98.0 F 75 24 H 146/72 H 3 L 02/26/18 07:47 02/26/18 07:47 02/26/18 07:47 02/26/18 07:47 02/26/18 09:19 Intake & Output 02/25/18 02/26/18 02/27/18 06:59 06:59 06:59 Intake Total 947 829 387 Output Total 300 Balance 647 829 387 Weight 69.6 kg 71.6 kg Exam: GENERAL: well-nourished and in no acute distress. Alert and oriented x2 HEAD: Atraumatic, normocephalic. EYES: MICHAEL, sclera anicteric, conjunctiva are normal. ENT: Moist mucous membranes. No oral ulcerations or bleeding gums noted. No obvious ear, nose or throat abnormalities noted. NECK: supple without lymphadenopathy. Trachea is central. No cervical or axillary lymphadenopathy noted. Carotids are 2+, JVD WNL LUNGS: Few scattered wheezes rales or rhonchi noted. No significant dullness noted on percussion. CHEST: Palpation of the chest wall shows no significant chest wall tenderness. 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 ABDOMEN: Soft, no significant tenderness appreciated, normoactive bowel sounds. No guarding, no rebound. No rigidity noted . No masses appreciated. EXTREMITIES: Pedal pulses are 1-2+, no calf tenderness noted. No clubbing or cyanosis. Trace to 1+ pedal edema noted NEUROLOGICAL: Focused neurological exam showed no significant neurologic deficit. Normal speech, no focal weakness appreciated. PSYCH: Normal mood, normal affect. Judgment and insight within normal limits. SKIN: No significant ecchymosis, skin is noted to be warm. MUSCULOSKELETAL EXAM: No significant acute joint swelling noted. Results Laboratory Results: 02/25/18 05:37 02/25/18 05:37 02/19/18 02/19/18 02/19/18 16:13 16:13 16:13 Creatine Kinase 176 H CK-MB (CK-2) 1.87 Troponin I < 0.012 NT-Pro-B Natriuret Pep 3740 H 02/19/18 02/19/18 02/20/18 22:10 22:10 03:57 Creatine Kinase 124 98 CK-MB (CK-2) 1.36 Troponin I < 0.012 NT-Pro-B Natriuret Pep 02/20/18 02/23/18 02/23/18 03:57 10:36 10:36 Creatine Kinase 50 CK-MB (CK-2) 1.11 1.40 Troponin I < 0.012 0.015 NT-Pro-B Natriuret Pep 02/23/18 02/23/18 02/23/18 16:20 16:20 22:00 Creatine Kinase 47 47 CK-MB (CK-2) 2.66 Troponin I 0.328 NT-Pro-B Natriuret Pep 02/23/18 22:00 Creatine Kinase CK-MB (CK-2) 2.85 Troponin I 0.556 NT-Pro-B Natriuret Pep Impressions: Chest X-Ray 02/21/18 09:00 IMPRESSION: Slightly improved. Assessment & Plan - Diagnosis (1) Atrial fibrillation with rapid ventricular response Is this a current diagnosis for this admission?: Yes (2) Acute on chronic diastolic (congestive) heart failure Is this a current diagnosis for this admission?: Yes (3) Essential hypertension Is this a current diagnosis for this admission?: Yes (4) Hyperlipidemia, mixed Is this a current diagnosis for this admission?: Yes (5) Acute and chronic respiratory failure with hypercapnia Is this a current diagnosis for this admission?: Yes - Notes Notes: Medical regimen reviewed with patient's daughter. We will be happy to follow patient in the office. - Time Time with patient: 15-25 minutes - CODE STATUS : was discussed, patient remains DO NOT RESUSCITATE. Surrogate decision-maker unchanged. Multiple medical problems were addressed. More than 50% of the time spent coordinating care, discussing management plans with involved caregivers. Management plans discussed with involved personnels. Medical decision making was of moderate to high complexity, patient's has multiple comorbidities. Medications reviewed and adjusted accordingly: Yes
== END 2018-02-26 12:19 | DRG 291 ==
LOC: 3S 14:13
PROVIDERS: ADMIT Internal Medicine; ATTEND Internal Medicine
PROC: 5A09457 Assistance with Respiratory Ventilation, 24-96 Consecutive Hours, Continuous Positive Airway Pressure (ICD-10-PCS; principal; 2018-02-19)
DX: I13.0 Hypertensive heart and chronic kidney disease with heart failure and stage 1 through stage 4 chronic kidney disease, or unspecified chronic kidney disease (principal); J96.22 Acute and chronic respiratory failure with hypercapnia; I50.33 Acute on chronic diastolic (congestive) heart failure; N17.9 Acute kidney failure, unspecified; E87.2 Acidosis; N18.3 Chronic kidney disease, stage 3 (moderate); I48.91 Unspecified atrial fibrillation; Z66 Do not resuscitate; E78.2 Mixed hyperlipidemia; M16.0 Bilateral primary osteoarthritis of hip; Z79.82 Long term (current) use of aspirin; Z79.899 Other long term (current) drug therapy; Z85.528 Personal history of other malignant neoplasm of kidney; Z90.710 Acquired absence of both cervix and uterus
CPT/HCPCS: 36415; 36600; 71045; 80048; 80053; 82550; 82553; 82803; 83735; 83880; 84443; 84484; 85025; 93005; 93010; 93306; 94660; G8978-GP; G8979-GP; J0360; J1650; J1940; J2270; J2405; J3490; J7030

== ENCOUNTER → 2018-10-02 | Outpatient (CLI) | payer MEDICARE, MEDICAID ==
[2018-10-02 09:00] LABS: ANION GAP 5 (5-19); BLOOD UREA NITROGEN 35 mg/dL (7-20); CARBON DIOXIDE 33 mmol/L (22-30); CHLORIDE 99 mmol/L (98-107); POTASSIUM 5.1 mmol/L (3.6-5.0); SODIUM 137.3 mmol/L (137-145)
== END ==
LOC: OD 08:09
PROVIDERS: ATTEND Internal Medicine
DX: I10 Essential (primary) hypertension (principal); N18.9 Chronic kidney disease, unspecified; I48.0 Paroxysmal atrial fibrillation
CPT/HCPCS: 36415; 80051; 82565; 84520

== ENCOUNTER 2019-08-09 16:02 | Emergency (ER) | payer MEDICARE ==
--- NOTE | 2019-08-09 16:49 | ER Document Report ---
ED Medical Screen (RME) - General Chief Complaint: Fall Stated Complaint: HEAD/BACK PAIN Time Seen by Provider: 08/09/19 16:38 Primary Care Provider: KARTIK BECKER MD [Primary Care Provider] - Follow up as needed Mode of Arrival: Wheelchair Information source: Patient, Relative - Daughter Notes: Patient is an 89-year-old female presenting to the emergency department chief complaint of fall injury. Patient fell earlier today, she is complaining of left-sided rib pain and headache. Patient's daughter is here states that patient has been feeling weak lately and has had increased fatigue. Patient has fallen twice in the last few days. Exam: Patient alert, answering questions appropriately. Lung sounds clear and equal bilaterally I have greeted and performed a rapid initial assessment of this patient. A comprehensive ED assessment and evaluation of the patient, analysis of test results and completion of the medical decision making process will be conducted by additional ED providers. I have specifically instructed the patient or family members with the patient to immediately return to any nursing staff should anything change in the patient's condition or with their chief complaint. TRAVEL OUTSIDE OF THE [place] IN LAST 30 DAYS: No - Related Data Allergies/Adverse Reactions: No Known Allergies Allergy (Verified 02/12/18 14:36) Past Medical History - Past Medical History Cardiac Medical History: Reports: Hx Congestive Heart Failure - Chronic diastolic CHF [place] [employer] class 2, Hx Hypercholesterolemia, Hx Hypertension - 2004 meds started Denies: Hx Coronary Artery Disease, Hx Heart Attack Pulmonary Medical History: Reports: Hx Pneumonia - 2013 Denies: Hx Asthma, Hx Bronchitis, Hx COPD, Hx Tuberculosis Neurological Medical History: Denies: Hx Cerebrovascular Accident, Hx Migraine, Hx Seizures Endocrine Medical History: Denies: Hx Diabetes Mellitus Type 1, Hx Diabetes Mellitus Type 2, Hx Hyperthyroidism, Hx Hypothyroidism Renal/ Medical History: Denies: Hx Peritoneal Dialysis Malignancy Medical History: Reports: Hx Renal (Kidney) Cancer - She underwent a tumor debulking procedure of some nature GI Medical History: Denies: Hx Cirrhosis, Hx Crohn's Disease, Hx Hepatitis, Hx Ulcerative Colitis Musculoskeltal Medical History: Reports Hx Arthritis - hips , Denies Hx Fibromyalgia Skin Medical History: Denies Hx Eczema, Denies Hx Psoriasis Psychiatric Medical History: Denies: Hx Depression Infectious Medical History: Denies: Hx Hepatitis Past Surgical History: Reports: Hx Hysterectomy, Hx Orthopedic Surgery - left knee surgery, Other - Kidney cancer surgery. Denies: Hx Pacemaker - Immunizations Hx Diphtheria, Pertussis, Tetanus Vaccination: Yes Physical Exam - Vital signs Vitals: Temp Pulse Resp BP Pulse Ox 97.9 F 80 18 176/53 H 90 L 08/09/19 16:13 08/09/19 16:13 08/09/19 16:13 08/09/19 16:13 08/09/19 16:13 Course - Vital Signs Vital signs: Temp Pulse Resp BP Pulse Ox 97.9 F 80 18 176/53 H 90 L 08/09/19 16:20 08/09/19 16:13 08/09/19 16:13 08/09/19 16:13 08/09/19 16:13 Doctor's Discharge - Discharge Referrals: KARTIK BECKER MD [Primary Care Provider] - Follow up as needed
--- NOTE | 2019-08-09 17:23 | RADIOLOGY REPORT (SQ) ---
EXAM DESCRIPTION: CT HEAD WITHOUT IMAGES COMPLETED DATE/TIME: 08/09/2019 5:15 pm REASON FOR STUDY: fall COMPARISON: 2013 TECHNIQUE: Axial images acquired through the brain without intravenous contrast. Images reviewed wi th bone, brain and subdural windows. Additional sagittal and coronal reconstructions were generated. Images stored on PACS. All CT scanners at this facility use dose modulation, iterative reconstruction, and/or weight based d osing when appropriate to reduce radiation dose to as low as reasonably achievable (ALARA). [facility]: Dose Right [facility]: CareDose [facility]: Dose Right [facility]: Teradose 4D [facility]: Spotwise RADIATION DOSE: CT Rad equipment meets quality standard of care and radiation dose reduction techniq ues were employed. CTDIvol: 53.2 mGy. DLP: 1017 mGy-cm.mGy. LIMITATIONS: None. FINDINGS: VENTRICLES: Prominent. CEREBRUM: No masses. No hemorrhage. No midline shift. Areas of low density in the white matter mos t likely due to chronic micro-vascular ischemic change. No evidence for acute infarction. CEREBELLUM: No masses. No hemorrhage. No alteration of density. No evidence for acute infarction. EXTRAAXIAL SPACES: Age-related involutional change. No fluid collections. No masses. ORBITS AND GLOBE: No intra- or extraconal masses. Normal contour of globe without masses. CALVARIUM: No fracture. PARANASAL SINUSES: No fluid or mucosal thickening. SOFT TISSUES: No mass or hematoma. OTHER: No other significant finding. IMPRESSION: CHRONIC CHANGES OF ATROPHY AND MICROVASCULAR ISCHEMIA. NO ACUTE PROCESS. EVIDENCE OF ACUTE STROKE: NO. TECHNICAL DOCUMENTATION: JOB ID: [id number] Quality ID # [id number]: Final reports with documentation of one or more dose reduction techniques (e.g., Au tomated exposure control, adjustment of the mA and/or kV according to patient size, use of iterative reconstruction technique) 2010 [employer]- All Rights Reserved Reading location - IP/workstation name: [email or web address]
--- NOTE | 2019-08-09 17:24 | RADIOLOGY REPORT (SQ) ---
EXAM DESCRIPTION: RIBS LEFT W/PA CHEST IMAGES COMPLETED DATE/TIME: 08/09/2019 5:08 pm REASON FOR STUDY: fall COMPARISON: None. TECHNIQUE: Frontal view of the chest and additional views of the left ribs acquired. NUMBER OF VIEWS: Four views. LIMITATIONS: None. FINDINGS: FRONTAL CXR: The cardiomediastinal silhouette and pulmonary vasculature are within normal limits given the low inspiratory lung volumes. There is no consolidation, sizeable pleural effusion or pneumothorax. RIBS: No displaced rib fractures. OTHER: No other finding. IMPRESSION: No acute cardiopulmonary process and no acute displaced left-sided rib fractures. COMMENT: SITE OF TRAUMA/COMPLAINT MARKED/STAMP COMPLETED: NO. TECHNICAL DOCUMENTATION: JOB ID: [id number] 2010 [employer]- All Rights Reserved Reading location - IP/workstation name: [email or web address]
[2019-08-09 17:26] LABS: ABSOLUTE EOSINOPHILS # (AUTO) 0.1 10^3/uL (0.0-0.6); ABSOLUTE LYMPHOCYTES (AUTO) 2.5 10^3/uL (0.5-4.7); ABSOLUTE MONOCYTES (AUTO) 1.1 10^3/uL (0.1-1.4); ABSOLUTE NEUT (AUTO) 8.4 10^3/uL (1.7-8.2); BASOPHILS % (AUTO) 0.2 % (0-2); EOSINOPHILS % (AUTO) 1.2 % (0-6); HEMATOCRIT 43.3 % (36.0-47.0); HEMOGLOBIN 14.7 g/dL (12.0-15.5); LYMPHOCYTES % (AUTO) 20.5 % (13-45); MEAN CORPUSCULAR HEMOGLOBIN 29.8 pg (27.0-33.4); MEAN CORPUSCULAR HGB CONC 34.1 g/dL (32.0-36.0); MEAN CORPUSCULAR VOLUME 88 fl (80-97); MONOCYTES % (AUTO) 8.7 % (3-13); PLATELET COUNT 460 10^3/uL (150-450); RED BLOOD COUNT 4.94 10^6/uL (3.72-5.28); RED CELL DISTRIBUTION WIDTH 14.7 % (11.5-14.0); SEGMENTED NEUTROPHILS % (AUTO) 69.4 % (42-78); TOTAL CELLS COUNTED % (AUTO) 100 %; WHITE BLOOD COUNT 12.1 10^3/uL (4.0-10.5)
[2019-08-09 17:33] LABS: ALBUMIN 4.1 g/dL (3.5-5.0); ALKALINE PHOSPHATASE 52 U/L (38-126); ANION GAP 5 (5-19); ASPARTATE AMINO TRANSFERASE 25 U/L (14-36); BILIRUBIN,DIRECT 0.1 mg/dL (0.0-0.4); BILIRUBIN,TOTAL 0.4 mg/dL (0.2-1.3); BLOOD UREA NITROGEN 24 mg/dL (7-20); CALCIUM 10.8 mg/dL (8.4-10.2); CARBON DIOXIDE 32 mmol/L (22-30); CHLORIDE 92 mmol/L (98-107); GLUCOSE 110 mg/dL (75-110); POTASSIUM 4.9 mmol/L (3.6-5.0); TOTAL PROTEIN 6.9 g/dL (6.3-8.2)
[2019-08-09] MEDS ORDERED: NORMAL SALINE 500 ML IV ONE (18:13)
[2019-08-09 18:26] LABS: APPEARANCE,URINE CLEAR; BILIRUBIN,URINE NEGATIVE (NEGATIVE); COLOR,URINE YELLOW; GLUCOSE, URINE NEGATIVE (NEGATIVE); KETONES,URINE NEGATIVE (NEGATIVE); LEUKOCYTE ESTERASE,URINE NEGATIVE (NEGATIVE); NITRITE,URINE NEGATIVE (NEGATIVE); PROTEIN,URINE NEGATIVE (NEGATIVE); URINE SPECIFIC GRAVITY 1.011; UROBILINOGEN,URINE NEGATIVE mg/dL (<2.0)
--- NOTE | 2019-08-09 19:22 | ER Document Report ---
ED Fall - General Chief Complaint: Fall Stated Complaint: HEAD/BACK PAIN Time Seen by Provider: 08/09/19 16:38 Primary Care Provider: KARTIK BECKER MD [Primary Care Provider] - Follow up tomorrow Mode of Arrival: Wheelchair Information source: Patient, Relative - Daughter Notes: 89-year-old female presented to ED for complaint of pain to her left ribs and the right side of her head. She fell this morning because she was weak. Her daughter states that she has fallen multiple times recently she is 89 years old. She is weak frequently. She is fallen twice in the last couple days. She is alert oriented answering questions appropriately lungs clear to auscultation respirations regular nonlabored. She does have a history of COPD. Daughter states that the patient lives with the patient's son and [id number] and they were concerned that she might have broken ribs or fractured skull. CT of head and rib x-ray were negative. TRAVEL OUTSIDE OF THE [place] IN LAST 30 DAYS: No - HPI Occurred: This morning - Has fallen multiple times in the last couple days Where: Home, Indoors Context: Tripped Associated symptoms: None Location of injury/pain: Head, Neck Quality of pain: Achy Severity: Mild Pain Level: 2 - Related data Allergies/Adverse Reactions: No Known Allergies Allergy (Verified 02/12/18 14:36) Past Medical History - General Information source: Patient, Relative - Daughter - Social History Smoking Status: Former Smoker Frequency of alcohol use: None Drug Abuse: None Lives with: Family Family History: Hypertension, Other - Heart disease Patient has suicidal ideation: No Patient has homicidal ideation: No - Past Medical History Cardiac Medical History: Reports: Hx Congestive Heart Failure - Chronic diastolic CHF [place] [employer] class 2, Hx Hypercholesterolemia, Hx Hypertension - 2004 meds started Pulmonary Medical History: Reports: Hx Pneumonia - 2013 EENT Medical History: Reports: None Neurological Medical History: Reports: None Endocrine Medical History: Reports: None Renal/ Medical History: Reports: None Malignancy Medical History: Reports: Hx Renal (Kidney) Cancer - She underwent a tumor debulking procedure of some nature GI Medical History: Reports: None Musculoskeletal Medical History: Reports Hx Arthritis - hips Skin Medical History: Reports None Psychiatric Medical History: Reports: None Traumatic Medical History: Reports: None Infectious Medical History: Reports: None Past Surgical History: Reports: Hx Hysterectomy, Hx Orthopedic Surgery - left knee surgery, Other - Kidney cancer surgery - Immunizations Hx Diphtheria, Pertussis, Tetanus Vaccination: Yes Hx Pneumococcal Vaccination: 06/09/13 Review of Systems - Review of Systems Constitutional: No symptoms reported EENT: No symptoms reported Cardiovascular: No symptoms reported Respiratory: Other Gastrointestinal: No symptoms reported Genitourinary: No symptoms reported Female Genitourinary: No symptoms reported Musculoskeletal: No symptoms reported Skin: No symptoms reported Hematologic/Lymphatic: No symptoms reported Neurological/Psychological: Headaches - Small tender knot to the left side of her head -: Yes All other systems reviewed and negative Physical Exam - Vital signs Vitals: Temp Pulse Resp BP Pulse Ox 97.9 F 80 18 176/53 H 90 L 08/09/19 16:13 08/09/19 16:13 08/09/19 16:13 08/09/19 16:13 08/09/19 16:13 Interpretation: Normal - General General appearance: Appears well, Alert - HEENT Head: Normocephalic, Tenderness Eyes: Normal Ears: Normal External canal: Normal Tympanic membrane: Normal Sinus: Normal Nasal: Normal Mouth/Lips: Normal Mucous membranes: Normal Pharynx: Normal Neck: Normal - Respiratory Respiratory status: No respiratory distress Chest status: Tender Breath sounds: Normal Chest palpation: Normal - Cardiovascular Rhythm: Regular Heart sounds: Normal auscultation Murmur: No - Abdominal Inspection: Normal Distension: No distension Bowel sounds: Normal Tenderness: Nontender Organomegaly: No organomegaly - Back Back: Normal, Nontender - Extremities General upper extremity: Normal inspection, Nontender, Normal color, Normal ROM, Normal temperature General lower extremity: Normal inspection, Nontender, Normal color, Normal ROM, Normal temperature, Normal weight bearing. No: Gustavo's sign - Neurological Neuro grossly intact: Yes Cognition: Normal Orientation: AAOx4 [place] Coma Scale Eye Opening: Spontaneous Josie Coma Scale Verbal: Oriented [place] Coma Scale Motor: Obeys Commands [place] Coma Scale Total: 15 Speech: Normal Motor strength normal: LUE, RUE, LLE, RLE Sensory: Normal - Psychological Associated symptoms: Normal affect, Normal mood - Skin Skin Temperature: Warm Skin Moisture: Dry Skin Color: Normal Course - Re-evaluation Re-evalutation: 08/09/19 19:27 Daughter was given a copy of the x-rays and CT of the head as well as lab results. She was instructed please to repeat the chemistry in 48 hours to ensure that the sodium and chloride are improved. She is also to follow-up with her primary doctor within the next 24 to 48 hours. Daughter verbalized understanding and agreement treatment plan patient was discharged home. - Vital Signs Vital signs: Temp Pulse Resp BP Pulse Ox 97.8 F 78 18 145/62 H 97 08/09/19 19:48 08/09/19 19:48 08/09/19 19:48 08/09/19 19:48 08/09/19 19:48 - Laboratory Result Diagrams: 08/09/19 16:55 08/09/19 16:55 Laboratory results interpreted by me: 08/09/19 08/09/19 16:55 16:55 WBC 12.1 H RDW 14.7 H Plt Count 460 H Absolute Neuts (auto) 8.4 H Sodium 128.8 L Chloride 92 L Carbon Dioxide 32 H BUN 24 H Est GFR (MDRD) Non-Af 53 L Calcium 10.8 H - Diagnostic Test Radiology reviewed: Image reviewed, Reports reviewed Discharge - Discharge Clinical Impression: Hyponatremia Fall Qualifiers: Encounter type: initial encounter Qualified Code(s): W19.XXXA - Unspecified fall, initial encounter Head contusion Qualifiers: Encounter type: initial encounter Contusion of head detail: scalp Qualified Code(s): S00.03XA - Contusion of scalp, initial encounter Contusion of rib on left side Qualifiers: Encounter type: initial encounter Qualified Code(s): S20.212A - Contusion of left front wall of thorax, initial encounter Condition: Stable Disposition: HOME, SELF-CARE Additional Instructions: HEAD INJURY PRECAUTIONS: At this point, there is no evidence that your head injury is serious. Observation is necessary, however. Take only clear liquids for the first few hours, unless told otherwise by the doctor. If no pain medication was prescribed, you may take acetaminophen according to the directions on the bottle. Do not take any medication that may alter your level of alertness (unless you've discussed it with the doctor first). Limit activity for the first 24 hours. Bed rest is best. During the first 24 hours, check to see approximately every two to three hours that the patient is easily arousable, responds normally, and can perform common tasks such as walking without difficulty. Contact your doctor or go to the hospital if any of the following things occur: Persistent vomiting, difficulty in arousing the patient, worsening or continued headache, or failure to improve as expected. Head injuries can cause symptoms that persist for a few days or even a few weeks. Rib Contusion You have been diagnosed as having bruised ribs. It will usually take a few weeks for these injured ribs to heal. You should cough or take a deep breath at least every hour or two to prevent lung complications. You should not engage in any strenuous physical activity until released by your physician. The usual rule is "if it hurts, don't do it." Return if you develop any of the following: (1) Fever or chills. (2) Persistent cough, coughing up blood, or shortness of breath. (3) Increasing pain. (4) Weakness, lightheadedness, or fainting. Hyponatremia You have an abnormally low level of serum sodium, called hyponatremia. Low serum sodium may cause weakness, fatigue, confusion, or even seizures. Usually, low sodium is due to taking diuretics (water pills), combined with drinking too much water. It can also be due to excessive vomiting or diarrhea. If no obvious cause is evident, further evaluation will be necessary. If the hyponatremia results from taking diuretics, it's treated by restricting the amount of water you can drink. If it's due to vomiting and diarrhea, it's treated by drinking liberal amounts of rehydration solution (for example Lytren or Pedialyte). A follow-up blood test is often done to see that the sodium is returning to normal. Call the physician if you have severe weakness, muscle twitching or cramping, palpitations (pounding or irregular heartbeat), confusion, headache, seizures, or any other new or alarming symptoms. USE OF TYLENOL (ACETAMINOPHEN): Acetaminophen may be taken for pain relief or fever control. It's much safer than aspirin, offering a wider range of "safe" dosages. It is safe during . Some brand names are Tylenol, Panadol, Datril, Anacin 3, Tempra, and Liquiprin. Acetaminophen can be repeated every four hours. The following are maximum recommended dosages: WEIGHT Dose Drops Elixir Chewable(80mg) (LBS.) drprs=droppers tsp=teaspoon 6 40 mg 0.4 ml (1/2) 6-11 80 mg 0.8 ml (full) tsp 1 tab 12-16 120 mg 1 1/2 drprs 3/4 tsp 1 1/2 tabs 17-23 160 mg 2 drprs 1 tsp 2 tabs 24-30 240 mg 3 drprs 1 1/2 tsp 3 tabs 30-35 320 mg 2 tsp 4 tabs 36-41 360 mg 2 1/4 tsp 4 1/2 tabs 42-47 400 mg 2 1/2 tsp 5 tabs 48-53 480 mg 3 tsp 6 tabs 54-59 520 mg 3 1/4 tsp 6 1/2 tabs 60-64 560 mg 3 1/2 tsp 7 tabs 65-70 600 mg 3 3/4 tsp 7 1/2 tabs 71-76 640 mg 4 tsp 8 tabs 77-82 720 mg 4 1/2 tsp 9 tabs 83-88 800 mg 5 tsp 10 tabs >89 pounds or adults 650 mg to 900 mg Acetaminophen can be repeated every four hours. Maximum dose not to exceed 4000 mg a day. These maximum recommended dosages are slightly higher than the dosages written on the product container, but these dosages are very safe and below the toxic dosage for acetaminophen. ICE PACKS: Apply ice packs frequently against the painful area. Many different schedules are recommended, such as "20 minutes on, 20 minutes off" or "one hour ice, two hours rest." If you need to work, you may need to go longer between ice treatments. You should plan to have the area ice packed AT LEAST one fourth of the time. The ice should be applied over the wrap, tape, or splint, or over a layer of cloth -- not directly against the skin. Some ice bags have a built-in cloth and can be put directly on the skin. FOLLOW-UP CARE: If you have been referred to a physician for follow-up care, call the physicians office for an appointment as you were instructed or within the next two days. If you experience worsening or a significant change in your symptoms, notify the physician immediately or return to the Emergency Department at any time for re-evaluation. Forms: Follow-Up Laboratory Testing Referrals: KARTIK BECKER MD [Primary Care Provider] - Follow up tomorrow
[2019-08-09 19:49] VITALS: BP 145/62
--- NOTE | 2019-08-09 21:41 | EKG REPORT ---
SEVERITY:- ABNORMAL ECG - SINUS RHYTHM ABNRM R PROG, CONSIDER ASMI OR LEAD PLACEMENT NONSPECIFIC T ABNORMALITIES, LATERAL LEADS : Confirmed by: Maggy Dixon MD 09-Aug-2019 21:40:36
== END 2019-08-09 20:02 | disposition home or self-care (01) ==
LOC: ER 16:02
DX: S00.03XA Contusion of scalp, initial encounter (principal); S20.212A Contusion of left front wall of thorax, initial encounter; R07.81 Pleurodynia; R51 Headache; W19.XXXA Unspecified fall, initial encounter; Y92.009 Unspecified place in unspecified non-institutional (private) residence as the place of occurrence of the external cause; E87.1 Hypo-osmolality and hyponatremia; R53.1 Weakness; R29.6 Repeated falls; J44.9 Chronic obstructive pulmonary disease, unspecified; I11.0 Hypertensive heart disease with heart failure; I50.32 Chronic diastolic (congestive) heart failure; Z85.528 Personal history of other malignant neoplasm of kidney; Z87.891 Personal history of nicotine dependence
CPT/HCPCS: 93005; 99284; 96360; 36415; 84300; 85025; 80053; 81001; 84484; 71101; 70450; 93010; J7040